=== PATIENT | male | born 1935 | race Caucasian/White ===

== ENCOUNTER → 2017-04-29 | Outpatient (CLI) | payer MEDICARE ==
[~2017-04-29] MED LIST: REGADENOSON 0.4 MG/5 ML DISP.SYRIN. IV ONE
--- NOTE | 2017-04-29 13:45 | RAD ---
APPROVED REPORT Test Type: Pharmacological Stress Nurse/Tech: aiden trevizo Test Indications: PAD, CHEST PAIN Cardiac History: HTN, SEE EHR Medications: SEE EHR Medical History: DIABETES, SEE EHR Resting ECG: NSR Resting Heart Rate: 75 bpm Resting Blood Pressure: 144/84mmHg Pretest Chest Pain: No chest pain Nurse/Tech Notes LUNG SOUNDS CLEAR, S1S2 WNL. Consent: The procedure was explained to the patient in lay terms. Informed consent was witnessed. Chuck eout was entered into [employer]. History and Stress Test performed by RT Abby (R) (N) Pharm. Details Pharmacologic stress testing was performed using 0.4mg per 5ml of regadenoson given intravenously ove r 7-10 seconds. Stress Symptoms NONE STATED. POST EXERCISE Reason for Termination: Infusion complete Max HR: 108 bpm Max Blood Pressure: 146/76mmHg Chest Pain: No. Arrhythmia: No. ST Change: No. INTERPRETATION Stress EKG Conclusion: No evidence of stress induced EKG changes. Imaging Protocol IMAGE PROTOCOL: Rest Tc-99m/stress Tc-99m 1 day Rest: Stress: Viability: Radiopharm.Tc99m AomgytmbmGr33v Sestamibi Srqr96cYk 33mCi Duration 15min. 12min. Img Date 04/29/2017 04/29/2017 Inj-Img Dxrt24mnw. 60min. Rest Admin Site:IV - Left AntecubitalAdministrator:RT Del (R)(N) Stress Admin Site: IV - Left AntecubitalAdministrator: RT Abby (R)(N) STRESS DATA End Diast. Vol.50.0mlAv. Heart Rate92.0bpm End Syst. Vol.10.0mlCO Index BSA0.0L/min Myocardial Mass97.0gEject. Jahklrly76.0% Stress Rates Pk. Fill Rate5.29EDV/secLVtime Pk. Fill 164.49msec Pk. Empty Rate5.68ESV/secLVtime Pk. Ifwac848.20msec 10/09 Pk. Fill1.46EDV/sec Stress Scores Regional WT0.00Summed WT7.00 Regional WM0.00Summed WM0.00 The rest and stress images show normal perfusion, normal contraction and thickening. LV Perf. Quant 17 Seg. SSS0.00 17 Seg. SRS0.00 17 Seg. SDS0.00 Stress Defect Extent (% LAD)0.00Rest Defect Extent (% LAD)0.00Rev. Defect Extent (% LAD)0.00 Stress Defect Extent (% LCX) 0.00Rest Defect Extent (% LCX)3.80Rev. Defect Extent (% LCX)0.00 Stress Defect Extent (% RCA)0.00Rest Defect Extent (% RCA)0.00Rev. Defect Extent (% RCA)0.00 Stress Defect Extent (% KIERAN)0.00Rest Defect Extent (% KIERAN)0.70Rev. Defect Extent (% KIERAN)0.00 Other Information Quality:Good Risk Assessment: Low Risk Conclusion 1. No evidence of EKG changes with stress testing. 2. Normal perfusion at stress/rest. 3. Low risk study. 4. EF > 60%.
== END | disposition home or self-care (01) ==
LOC: NM 08:58
PROVIDERS: ATTEND Internal Medicine Cardiovascular Disease
DX: I73.9 Peripheral vascular disease, unspecified (principal); R07.9 Chest pain, unspecified
CPT/HCPCS: 78452; 93017; 96374; 96375; 96376; A9500; J2785

== ENCOUNTER 2017-12-26 06:27 | Observation (INO) | payer MEDICARE, BC ==
[2017-12-26] MEDS ORDERED: fentaNYL PF VIAL 100 MCG/2 ML VIAL IV ×2 (07:00)
[2017-12-26] MEDS ORDERED: LIDOCAINE 1% PF 2 ML VIAL. ID (07:00)
[2017-12-26] MEDS ORDERED: HYDROmorphone 2 MG/ML VIAL IV (07:00)
[2017-12-26] MEDS ORDERED: PROCHLORPERAZINE 10 MG/2 ML VIAL. IV (07:00)
[2017-12-26] MEDS ORDERED: MORPHINE SULFATE 2 MG/ML DISP.SYRIN. IV (07:00)
[2017-12-26] MEDS ORDERED: ONDANSETRON PF 4 MG/2 ML VIAL. IV ×2 (07:00→09:00)
[2017-12-26 07:06] LABS: POC GLUCOSE 126 mg/dL (70-99)
[2017-12-26] MEDS: IV RINGERS,LACTATED 1000ML 1,000 ML IV (07:07)
[2017-12-26] MEDS ORDERED: PROPOFOL 20 ML IV (07:20)
[2017-12-26] MEDS ORDERED: DEXAMETHASONE SOD PHOS 20 MG/5 ML VIAL. (07:20)
[2017-12-26] MEDS ORDERED: ONDANSETRON PF 4 MG/2 ML VIAL. (07:20)
[2017-12-26] MEDS ORDERED: fentaNYL PF VIAL 100 MCG/2 ML VIAL (07:21)
[2017-12-26] MEDS ORDERED: ceFAZolin 2GM PREMIX 2 GM/50 ML BAG IV (08:00)
[2017-12-26] MEDS ORDERED: PHENYLEPHRINE 10 MG/ML VIAL. (08:06)
[2017-12-26] MEDS: BUPIVACAINE-EPI 0.25%-1:200000 50 ML VIAL. (08:17)
[2017-12-26] MEDS ORDERED: SEVOFLURANE 61 TO 120 MINUTES. IH (08:57)
[2017-12-26] MEDS ORDERED: 0.9 % SODIUM CHLORIDE 10 ML DISP.SYRIN. IV (09:00)
[2017-12-26] MEDS: VORAPAXAR SULFATE 2.08 MG PO (09:00)
[2017-12-26] MEDS ORDERED: MORPHINE SULFATE 4 MG/ML DISP.SYRIN. IV (09:00)
[2017-12-26 09:10] LABS: POC GLUCOSE 135 mg/dL (70-99)
[2017-12-26] MEDS: PREGABALIN 50 MG CAPSULE PO ×2 (12:53→21:00)
[2017-12-26] MEDS: CLOPIDOGREL BISULFATE 75 MG TABLET PO (12:53)
[2017-12-26] MEDS: ASPIRIN ENTERIC COATED 81 MG TABLET.DR. PO (12:53)
[2017-12-26] MEDS: hydroCHLOROthiazide 25 MG TABLET PO (12:54)
[2017-12-26] MEDS: LINAGLIPTIN 5 MG TABLET PO (12:54)
[2017-12-26] MEDS: amLODIPine BESYLATE 10 MG TABLET PO (12:54)
[2017-12-26] MEDS: ATENOLOL 50 MG TABLET. PO (12:55)
[2017-12-26] MEDS: LISINOPRIL 20 MG TABLET PO ×2 (12:55→21:02)
[2017-12-26] MEDS: IV DEXTROSE 5%-LACT RINGERS 1,000 ML IV (15:00)
[2017-12-26] MEDS: oxyCODONE/APAP 5/325 1 TAB TABLET PO (17:50)
[2017-12-26 20:41] LABS: POC GLUCOSE 227 mg/dL (70-99)
[2017-12-26] MEDS: NON FORMULARY ITEM (Mirabegron (Myrbetriq) 25 MG) PO (20:59)
[2017-12-26] MEDS: TAMSULOSIN 0.4 MG CAP.ER.24H. PO (21:00)
[2017-12-26] MEDS: ATORVASTATIN CALCIUM 10 MG TABLET. PO (21:00)
[2017-12-27] MEDS: IV DEXTROSE 5%-LACT RINGERS 1,000 ML IV (04:20)
[2017-12-27] MEDS: hydroCHLOROthiazide 25 MG TABLET PO (08:18)
[2017-12-27] MEDS: ATENOLOL 50 MG TABLET. PO (08:19)
[2017-12-27] MEDS: LISINOPRIL 20 MG TABLET PO (08:20)
[2017-12-27] MEDS: amLODIPine BESYLATE 10 MG TABLET PO (08:20)
[2017-12-27] MEDS: PREGABALIN 50 MG CAPSULE PO (08:21)
[2017-12-27] MEDS: ASPIRIN ENTERIC COATED 81 MG TABLET.DR. PO (08:21)
[2017-12-27] MEDS: CLOPIDOGREL BISULFATE 75 MG TABLET PO (08:21)
[2017-12-27] MEDS: oxyCODONE/APAP 5/325 1 TAB TABLET PO ×3 (08:22→15:59)
[2017-12-27] MEDS: LINAGLIPTIN 5 MG TABLET PO (08:28)
[2017-12-27] MEDS: VORAPAXAR SULFATE 2.08 MG PO (08:29)
[2017-12-27 08:50] LABS: POC GLUCOSE 101 mg/dL (70-99)
[2017-12-27 11:53] LABS: POC GLUCOSE 158 mg/dL (70-99)
== END 2017-12-27 17:30 | disposition home or self-care (01) ==
LOC: SURG 06:27 → 4 NORTH 08:57
PROVIDERS: Surgery
DX: K40.90 Unilateral inguinal hernia, without obstruction or gangrene, not specified as recurrent (principal); E78.5 Hyperlipidemia, unspecified; I10 Essential (primary) hypertension; Z85.46 Personal history of malignant neoplasm of prostate
CPT/HCPCS: 49505; 82962; 97161-GP; A4215; C1781; G0378; G0379; G8978-CK-GP; G8979-CH-GP; J0690; J1100; J2405; J2704; J3010

== ENCOUNTER → 2019-02-03 | Outpatient (CLI) | payer MEDICARE, BC ==
[2017-12-27 15:00] VITALS: BP 110/76
[~2019-02-03] MED LIST changes: +AMLO10TA8 PO; +ASPI-482 PO; +ATEN100T PO; +ATOR10TA60 PO; +BENA20TA4 PO; +CALC-104 PO; +CLOP75TA PO; +FLUT9.9S NS; +HYDR12.58 PO; +MIRA25TA PO; +PREG50CA PO; -REGADENOSON 0.4 MG/5 ML DISP.SYRIN. IV ONE; +SITA1TAB11 PO; +TAMS0.4C2 PO; +VITAMIN B 12 INJ. INJ; +VORA2.082 PO
--- NOTE | 2019-02-09 10:36 | RAD ---
MR#: [id number] Date of Study: 02/03/2019 Ordering Physician: JORGE L LORD, Referring Physician: JORGE L LORD, Tech: Reno Rice, ALANNAH, RDMS, RVT, RDCS, RTR APPROVED REPORT Patient Location: OUT-PATIENT Indications PAD VELOCITY AND DOPPLER WAVEFORM ANALYSIS RIGHT cm/secWaveformSeverity LEFT cm/secWaveform Severity dCFA 83.0BiphasicdCFA 74.0Biphasic Prof Fem Art. 53.0BiphasicProf Fem Art. 50.0Biphasic Fem Art Prox. 92.0BiphasicFem Art Prox. 84.0Biphasic Fem Art Mid. 90.0BiphasicFem Art Mid. 89.0Biphasic Fem Art Dist. 82.0BiphasicFem Art Dist. 73.0Biphasic Pop Art(Fossa) 63.0BiphasicPop Art(AK) 46.0Biphasic TRUCK REPAIR SUPERVISOR Prox. 69.0BiphasicPTA Prox. 105.0Biphasic TRUCK REPAIR SUPERVISOR Dist. 82.0BiphasicPTA Dist. 99.0Biphasic Per Art Mid. 49.0BiphasicPer Art Mid. 99.0Biphasic YAJAIRA Prox. 62.0BiphasicATA Prox. 25.0Biphasic DPA 29BiphasicDPA 28Monophasic Findings Grayscale images of the bilateral lower extremity arterial vessels reveals diffuse atherosclerotic pl aque. Spectral waveforms are grossly within normal limits throughout the arterial tree except of the level of the ankle. The dorsalis pedis vessels are notable for diffuse disease and diminished velocit ies. Otherwise no focal high-grade stenosis is identified above the ankle. Critical Notification Critical Value: No <Conclusion> 1. Distal small vessel disease at the level of the ankle but otherwise no significant obstructive dis ease noted. Signed by : Terrance Louis, Electronically Approved : 02/09/2019 10:35:59
== END | disposition home or self-care (01) ==
LOC: US 12:30
PROVIDERS: ATTEND Internal Medicine Cardiovascular Disease
DX: I70.203 Unspecified atherosclerosis of native arteries of extremities, bilateral legs (principal)
CPT/HCPCS: 93925

== ENCOUNTER 2019-07-19 15:11 | Inpatient (IN) | payer MEDICARE, BC ==
[~2019-07-19] VITALS: Ht 172.7 cm; Wt 76.7 kg
[2019-07-19 15:48] LABS: BASO % 0 % (0-3); EOS # 0.1 x10^3/uL (0.0-0.7); EOS % 1 % (0-3); HEMATOCRIT 37.2 % (39.0-53.0); HEMOGLOBIN 12.4 g/dL (13.0-17.5); LYMPH # 1.7 x10^3/uL (1.0-4.8); LYMPH % 23 % (24-48); MEAN CORPUSCULAR HEMOGLOBIN 29 pg (25-35); MEAN CORPUSCULAR HGB CONC 34 g/dL (31-37); MEAN CORPUSCULAR VOLUME 87 fL (79-100); MONO # 0.5 x10^3/uL (0.0-1.1); MONO % 7 % (0-9); NEUT # 5.1 x10^3/uL (1.8-7.7); NEUT % 68 % (31-73); PLATELET COUNT 224 x10^3/uL (140-400); RED BLOOD COUNT 4.25 x10^6/uL (4.30-5.70); RED CELL DISTRIBUTION WIDTH 14.4 % (11.5-14.5); WHITE BLOOD COUNT 7.4 x10^3/uL (4.0-11.0)
--- NOTE | 2019-07-19 15:48 | PHYS DOC ---
Past Medical History Past Medical History: Diabetes-Type II, Hypertension (YAHIR PATEL APRN) Attending Signature I have participated in the care of this patient and I have reviewed and agree with all pertinent clinical information above including history, exam, and recommendations. (MANASA RUBIO MD) Adult General Chief Complaint Chief Complaint: SYNCOPE HPI HPI Patient is a 84 year old male that presents to ER for single episode CVAs dining room table that happened around 2:00 PM. The patient states he also had some blurry vision on his way to the hospital via EMS. The patient family states that after this happened he was out for several minutes and then he couldn't talk for about 5 minutes after this happened. They also state his right arm was flaccid for several minutes after this happened. Denies any pain or current c omplaints in the ER. He has a history of hypertension, and diabetes and he is on Plavix for unknown reason. (YAHIR PATEL APRN) Review of Systems Review of Systems Constitutional: Denies fever or chills [] Eyes: Reports blurry vision on the way to hospital. HENT: Denies nasal congestion or sore throat [] Respiratory: Denies cough or shortness of breath [] Cardiovascular: No additional information not addressed in HPI [] GI: Denies abdominal pain, nausea, vomiting, bloody stools or diarrhea [] : Denies dysuria or hematuria [] Musculoskeletal: Denies back pain or joint pain [] Integument: Denies rash or skin lesions [] Neurologic: Denies headache, Family reports R sided unilateral weakness and aphasia for 5 minutes. Endocrine: Denies polyuria or polydipsia [] Complete systems were reviewed and found to be within normal limits, except as documented in this note. (YAHIR PATEL APRN) Current Medications Current Medications Current Medications Medications (Trade) Dose Ordered Sig/Sara Start Time Stop Time Status Last Admin Dose Admin Info (CONTRAST GIVEN -- Rx MONITORING) 1 each PRN DAILY PRN 07/19/19 16:15 07/21/19 16:14 Iohexol (Omnipaque 300 Mg/ml) 60 ml 1X ONCE 07/19/19 16:30 07/19/19 16:31 DC 07/19/19 16:19 60 ML (MANASA RUBIO MD) Allergies Allergies Allergies Coded Allergies Type Severity Reaction Last Updated Verified No Known Drug Allergies 12/26/17 No (MANASA RUBIO MD) Physical Exam Physical Exam Constitutional: Well developed, well nourished, no acute distress, non-toxic appearance. [] HENT: Normocephalic, atraumatic, bilateral external ears normal, oropharynx moist, no oral exudates, nose normal. [] Eyes: PERRLA, EOMI, conjunctiva normal, no discharge. [] Neck: Normal range of motion, no tenderness, supple, no stridor. [] Cardiovascular:Heart rate regular rhythm, no murmur [] Lungs & Thorax: Bilateral breath sounds clear to auscultation [] Abdomen: Bowel sounds normal, soft, no tenderness, no masses, no pulsatile masses. [] Skin: Warm, dry, no erythema, no rash. [] Back: No tenderness, no CVA tenderness. [] Extremities: No tenderness, no cyanosis, no clubbing, ROM intact, no edema. [] Neurologic: Alert and oriented X 3, normal motor function, normal sensory function, no focal deficits noted. [] Psychologic: Affect normal, judgement normal, mood normal. [] (YAHIR PATEL APRN) Current Patient Data Vital Signs Vital Signs Date Time Temp Pulse Resp B/P (MAP) Pulse Ox O2 Delivery O2 Flow Rate FiO2 07/19/19 16:55 92 16 178/77 (110) 97 Room Air 07/19/19 15:12 97.5 97.5 (MANASA RUBIO MD) Lab Values Laboratory Tests Test 07/19/19 15:30 White Blood Count 7.4 x10^3/uL (4.0-11.0) Red Blood Count 4.25 x10^6/uL (4.30-5.70) L Hemoglobin 12.4 g/dL (13.0-17.5) L Hematocrit 37.2 % (39.0-53.0) L Mean Corpuscular Volume 87 fL (79-100) Mean Corpuscular Hemoglobin 29 pg (25-35) Mean Corpuscular Hemoglobin Concent 34 g/dL (31-37) Red Cell Distribution Width 14.4 % (11.5-14.5) Platelet Count 224 x10^3/uL (140-400) Neutrophils (%) (Auto) 68 % (31-73) Lymphocytes (%) (Auto) 23 % (24-48) L Monocytes (%) (Auto) 7 % (0-9) Eosinophils (%) (Auto) 1 % (0-3) Basophils (%) (Auto) 0 % (0-3) Neutrophils # (Auto) 5.1 x10^3/uL (1.8-7.7) Lymphocytes # (Auto) 1.7 x10^3/uL (1.0-4.8) Monocytes # (Auto) 0.5 x10^3/uL (0.0-1.1) Eosinophils # (Auto) 0.1 x10^3/uL (0.0-0.7) Basophils # (Auto) 0.0 x10^3/uL (0.0-0.2) Prothrombin Time 13.7 SEC (11.7-14.0) Prothrombin Time INR 1.1 (0.8-1.1) Activated Partial Thromboplast Time 26 SEC (24-38) D-Dimer (Kandi) 0.62 ug/mlFEU (0.00-0.50) H Sodium Level 140 mmol/L (136-145) Potassium Level 4.2 mmol/L (3.5-5.1) Chloride Level 103 mmol/L (98-107) Carbon Dioxide Level 26 mmol/L (21-32) Anion Gap 11 (6-14) Blood Urea Nitrogen 27 mg/dL (8-26) H Creatinine 1.6 mg/dL (0.7-1.3) H Estimated GFR (Cockcroft-Gault) 41.3 BUN/Creatinine Ratio 17 (6-20) Glucose Level 152 mg/dL (70-99) H Calcium Level 9.6 mg/dL (8.5-10.1) Total Bilirubin 0.4 mg/dL (0.2-1.0) Aspartate Amino Transferase (AST) 18 U/L (15-37) Alanine Aminotransferase (ALT) 15 U/L (16-63) L Alkaline Phosphatase 44 U/L (46-116) L Creatine Kinase 61 U/L (39-308) Creatine Kinase MB (Mass) 1.0 ng/mL (0.0-3.6) Creatine Kinase MB Relative Index % (0-4) Troponin I Quantitative < 0.017 ng/mL (0.000-0.055) Total Protein 7.5 g/dL (6.4-8.2) Albumin 3.5 g/dL (3.4-5.0) Albumin/Globulin Ratio 0.9 (1.0-1.7) L Laboratory Tests 07/19/19 15:30 Laboratory Tests 07/19/19 15:30 (MANASA RUBIO MD) Lab Values Laboratory Tests Test 07/19/19 15:30 White Blood Count 7.4 x10^3/uL (4.0-11.0) Red Blood Count 4.25 x10^6/uL (4.30-5.70) L Hemoglobin 12.4 g/dL (13.0-17.5) L Hematocrit 37.2 % (39.0-53.0) L Mean Corpuscular Volume 87 fL (79-100) Mean Corpuscular Hemoglobin 29 pg (25-35) Mean Corpuscular Hemoglobin Concent 34 g/dL (31-37) Red Cell Distribution Width 14.4 % (11.5-14.5) Platelet Count 224 x10^3/uL (140-400) Neutrophils (%) (Auto) 68 % (31-73) Lymphocytes (%) (Auto) 23 % (24-48) L Monocytes (%) (Auto) 7 % (0-9) Eosinophils (%) (Auto) 1 % (0-3) Basophils (%) (Auto) 0 % (0-3) Neutrophils # (Auto) 5.1 x10^3/uL (1.8-7.7) Lymphocytes # (Auto) 1.7 x10^3/uL (1.0-4.8) Monocytes # (Auto) 0.5 x10^3/uL (0.0-1.1) Eosinophils # (Auto) 0.1 x10^3/uL (0.0-0.7) Basophils # (Auto) 0.0 x10^3/uL (0.0-0.2) Prothrombin Time 13.7 SEC (11.7-14.0) Prothrombin Time INR 1.1 (0.8-1.1) Activated Partial Thromboplast Time 26 SEC (24-38) D-Dimer (Kandi) 0.62 ug/mlFEU (0.00-0.50) H Sodium Level 140 mmol/L (136-145) Potassium Level 4.2 mmol/L (3.5-5.1) Chloride Level 103 mmol/L (98-107) Carbon Dioxide Level 26 mmol/L (21-32) Anion Gap 11 (6-14) Blood Urea Nitrogen 27 mg/dL (8-26) H Creatinine 1.6 mg/dL (0.7-1.3) H Estimated GFR (Cockcroft-Gault) 41.3 BUN/Creatinine Ratio 17 (6-20) Glucose Level 152 mg/dL (70-99) H Calcium Level 9.6 mg/dL (8.5-10.1) Total Bilirubin 0.4 mg/dL (0.2-1.0) Aspartate Amino Transferase (AST) 18 U/L (15-37) Alanine Aminotransferase (ALT) 15 U/L (16-63) L Alkaline Phosphatase 44 U/L (46-116) L Creatine Kinase 61 U/L (39-308) Creatine Kinase MB (Mass) 1.0 ng/mL (0.0-3.6) Creatine Kinase MB Relative Index % (0-4) Troponin I Quantitative < 0.017 ng/mL (0.000-0.055) Total Protein 7.5 g/dL (6.4-8.2) Albumin 3.5 g/dL (3.4-5.0) Albumin/Globulin Ratio 0.9 (1.0-1.7) L Laboratory Tests 07/19/19 15:30 Laboratory Tests 07/19/19 15:30 (YAHIR PATEL APRN) EKG EKG EKG interpreted by Dr. Rubio Sinus with rate of 83, No STEMI.[] (YAHIR PATEL APRN) Radiology/Procedures Radiology/Procedures [facility] [address] [place] [address] IMAGING REPORT Signed PATIENT: OSWALDO HIGGINBOTHAMACCOUNT: [id number] : 1935 LOCATION: ER AGE: 84 SEX: M EXAM STATUS: REG ER ORD. PHYSICIAN: YAHIR PATEL APRN REASON: syncope, unable to talk for 5 minutes afterwards, blurry vision PROCEDURE: CT ANGIOGRAPHY HEAD AND NECK Exam: CT head. CTA head and neck INDICATION: Blurry vision, syncope TECHNIQUE: Sequential axial images through the head were obtained without the administration of IV contrast. Sequential axial images through the head and neck were obtained following the administration of 100 mL of Isovue 370 IV contrast. 3-D reformatted images were reconstructed from the axial data and reviewed. Comparisons: None FINDINGS: Head without: No focal parenchymal lesion or hemorrhage is identified. There is no midline shift or sulcal effacement. Patchy hypodensity in the periventricular white matter. Ramires-white distinction is preserved. The ventricular system is within normal limits without compression hydrocephalus. The basal cisterns are well maintained. The visualized portions of the paranasal sinuses and mastoid air cells are well-pneumatized. No acute fractures. CTA NECK: Visualized portions of the thoracic aorta are unremarkable. There is a two-vessel aortic arch configuration with common origin of the brachiocephalic and left common carotid arteries. Right common carotid artery is patent without evidence of stenosis, occlusion or aneurysm. There is circumferential calcified plaque at the origin of the right internal carotid artery without significant stenosis. Left common carotid artery is patent without evidence of stenosis, occlusion or aneurysm. Mild calcified plaque at the origin of the left internal carotid artery without significant stenosis. Right vertebral artery is patent to basilar confluence. No evidence of stenosis, occlusion or aneurysm. Left vertebral artery is patent to the basilar confluence. No evidence of stenosis, occlusion or aneurysm. There is heterogenous appearance of the thyroid gland. CTA HEAD: Circumferential calcified plaque at the cavernous segment of the right internal carotid artery without significant stenosis. Right MCA is patent. Right MARIETTA is patent. Circumferential calcified plaque at the cavernous segment of the left internal carotid artery without significant stenosis. Left MCA is patent. Left MARIETTA is patent. Basilar artery is patent without evidence of stenosis, occlusion or aneurysm. Major branch vessels arising off the basilar artery are patent proximally. breaker table worker are patent bilaterally. IMPRESSION: 1. Patchy hypodensity in the periventricular white matter representing small vessel ischemic change, technically age indeterminate without prior imaging. 2. Calcified plaque at the origins of the internal carotid arteries bilaterally without significant stenosis. 3. Calcified plaque at the cavernous segments of the internal carotid arteries bilaterally without significant stenosis. 4. There remains concerns for acute ischemia MRI would better evaluate. Exposure: One or more of the following in the visualized dose reduction techniques were utilized for this examination: 1. Automated exposure control 2. Adjustment of the MA and/or KV according to patient size Use of iterative of reconstructive technique Electronically signed by: Anatoliy Dover MD (07/19/2019 4:35 PM) [facility] [][facility] [address] [place] [address] IMAGING REPORT Signed PATIENT: OSWALDO HIGGINBOTHAMACCOUNT: [id number] : 1935 LOCATION: ER AGE: 84 SEX: M EXAM STATUS: REG ER ORD. PHYSICIAN: YAHIR PATEL APRN REASON: syncope PROCEDURE: CHEST PA & LATERAL CHEST PA LATERAL History: Syncope Comparison: None. Findings: 2 views of the chest are submitted. There is motion for lateral view. Cardiac silhouette is within normal limits. There is somewhat tortuous thoracic aorta. Opacity on the lateral view is likely in part from patient's arm soft tissues. No convincing infiltrate is visualized on the AP view. No pneumothorax is identified. Impression: 1. Lateral view is limited, no convincing infiltrate on the AP view. Electronically signed by: Artem Parsons MD (07/19/2019 4:34 PM) [facility] DICTATED and SIGNED BY: ARTEM PARSONS MD DATE: 07/19/19 163 (YAHIR PATEL APRN) Course & Med Decision Making Course & Med Decision Making Pertinent Labs and Imaging studies reviewed. (See chart for details) Will work up for syncope with labs, chest x-ray, urine, CT head wo and CTA (TIA workup). Labs, and Imaging is unremarkable at this time. Concerned that patient had a TIA. Will page Dr. Weller for admission ([id number]). Dr. Ruiz answered page, covering for Dr. Weller and accepts admission 1730. Will consult Dr. Maddox (Neuro) and he requests Carotid Dopplers Bilaterally for in the morning. Discussed plan with patient and family multiple times. Patient related to me that he wants to be a FULL code while in the hospital. (YAHIR PATEL APRN) Dragon Disclaimer Dragon Disclaimer This electronic medical record was generated, in whole or in part, using a voice recognition dictation system. (YAHIR PATEL APRN) Departure Departure Impression: Primary Impression: TIA (transient ischemic attack) Additional Impression: Syncope Disposition: 09 ADMITTED INPATIENT Admitting Physician: Yahir Ruiz (YAHIR PATEL APRN) Condition: GUARDED Referrals: ANA LUISA WELLER MD (PCP) NIHSS Stroke Scale NIH Stroke Scale: NIH Stroke Scale Response (Comments) Value Level of Consciousness: 0 Alert/Responsive 0 LOC Questions: 0 Answers both correctly 0 LOC Commands: 0 Performs both tasks 0 Best Gaze: 0 Normal 0 Visual: 0 No visual loss 0 Facial Palsy: 0 Normal, symmetrical 0 Motor - Left Arm 0 No drift 0 Motor - Right Arm 0 No drift 0 Motor - Left Leg 0 No drift 0 Motor: Right Leg 0 No drift 0 Limb Ataxia: 0 Absent 0 Sensory: 0 No loss 0 Best Language: 0 Normal 0 Dysathria: 0 Normal 0 Extinction and Inattention: 0 Normal 0 Total 0 Problem Qualifiers Additional Impression: Syncope Syncope type: unspecified Qualified Codes: R55 - Syncope and collapse YAHIR PATEL APRN Jul 19, 2019 15:48 MANASA RUBIO MD Jul 20, 2019 06:51
--- NOTE | 2019-07-19 15:52 | EKG ---
[facility] [address] [place] [address] Test Date: 2019-07-19 Test Time: 15:17:38 Pat Name: OSWALDO HIGGINBOTHAM Department: Room: Gender: M Filler Picker: MICHELLE : [phone] Requested By: PJ PATEL Order Number: [id number] Reading MD: Measurements Intervals [place] Rate: 83 P: 34 GA: 172 QRS: 3 QRSD: 76 T: 19 QT: 340 QTc: 404 Interpretive Statements SINUS RHYTHM NORMAL ECG No previous ECG available for comparison
[2019-07-19 15:58] LABS: CALCIUM 9.6 mg/dL (8.5-10.1); CREATININE 1.6 mg/dL (0.7-1.3); GFR 41.3; POTASSIUM 4.2 mmol/L (3.5-5.1)
[2019-07-19 16:03] LABS: ALBUMIN 3.5 g/dL (3.4-5.0); ALBUMIN/GLOBULIN RATIO 0.9 (1.0-1.7); PROTHROMBIN TIME PATIENT 13.7 SEC (11.7-14.0); TOTAL BILIRUBIN 0.4 mg/dL (0.2-1.0); TOTAL PROTEIN 7.5 g/dL (6.4-8.2)
[2019-07-19 16:11] LABS: CREATINE KINASE 61 U/L (39-308)
[2019-07-19] MEDS ORDERED: CONTRAST GIVEN. MC PRN (16:15)
[2019-07-19] MEDS ORDERED: IOHEXOL 300 MG/ML 100ML VIAL. IV ONE (16:30)
--- NOTE | 2019-07-19 16:36 | RAD ---
CHEST PA LATERAL History: Syncope Comparison: None. Findings: 2 views of the chest are submitted. There is motion for lateral view. Cardiac silhouette is within normal limits. There is somewhat tortuous thoracic aorta. Opacity on the lateral view is likely in part from patient's arm soft tissues. No convincing infiltrate is visualized on the AP view. No pneumothorax is identified. Impression: 1. Lateral view is limited, no convincing infiltrate on the AP view. Electronically signed by: Juan C Devlin MD (07/19/2019 4:34 PM) [facility]
--- NOTE | 2019-07-19 16:38 | RAD ---
Exam: CT head. CTA head and neck INDICATION: Blurry vision, syncope TECHNIQUE: Sequential axial images through the head were obtained without the administration of IV contrast. Sequential axial images through the head and neck were obtained following the administration of 100 mL of Isovue 370 IV contrast. 3-D reformatted images were reconstructed from the axial data and reviewed. Comparisons: None FINDINGS: Head without: No focal parenchymal lesion or hemorrhage is identified. There is no midline shift or sulcal effacement. Patchy hypodensity in the periventricular white matter. Ramires-white distinction is preserved. The ventricular system is within normal limits without compression hydrocephalus. The basal cisterns are well maintained. The visualized portions of the paranasal sinuses and mastoid air cells are well-pneumatized. No acute fractures. CTA NECK: Visualized portions of the thoracic aorta are unremarkable. There is a two-vessel aortic arch configuration with common origin of the brachiocephalic and left common carotid arteries. Right common carotid artery is patent without evidence of stenosis, occlusion or aneurysm. There is circumferential calcified plaque at the origin of the right internal carotid artery without significant stenosis. Left common carotid artery is patent without evidence of stenosis, occlusion or aneurysm. Mild calcified plaque at the origin of the left internal carotid artery without significant stenosis. Right vertebral artery is patent to basilar confluence. No evidence of stenosis, occlusion or aneurysm. Left vertebral artery is patent to the basilar confluence. No evidence of stenosis, occlusion or aneurysm. There is heterogenous appearance of the thyroid gland. CTA HEAD: Circumferential calcified plaque at the cavernous segment of the right internal carotid artery without significant stenosis. Right MCA is patent. Right MARIETTA is patent. Circumferential calcified plaque at the cavernous segment of the left internal carotid artery without significant stenosis. Left MCA is patent. Left MARIETTA is patent. Basilar artery is patent without evidence of stenosis, occlusion or aneurysm. Major branch vessels arising off the basilar artery are patent proximally. launch steward are patent bilaterally. IMPRESSION: 1. Patchy hypodensity in the periventricular white matter representing small vessel ischemic change, technically age indeterminate without prior imaging. 2. Calcified plaque at the origins of the internal carotid arteries bilaterally without significant stenosis. 3. Calcified plaque at the cavernous segments of the internal carotid arteries bilaterally without significant stenosis. 4. There remains concerns for acute ischemia MRI would better evaluate. Exposure: One or more of the following in the visualized dose reduction techniques were utilized for this examination: 1. Automated exposure control 2. Adjustment of the MA and/or KV according to patient size Use of iterative of reconstructive technique Electronically signed by: Anatoliy Dover MD (07/19/2019 4:35 PM) [facility]
[2019-07-19] MEDS ORDERED: ONDANSETRON PF 4 MG/2 ML VIAL. IV PRN (17:30)
[2019-07-19] MEDS ORDERED: ASPIRIN CHEWABLE 81 MG TABLET. PO ONE (17:30)
[2019-07-19 19:02] LABS: CREATINE KINASE 55 U/L (39-308)
[2019-07-19 19:22] VITALS: BP 190/90
[2019-07-19] MEDS ORDERED: SITA1TAB11 PO (19:46)
--- NOTE | 2019-07-19 20:00 | NUR ---
Admit from ED via gurney from ED to room 246. A/O x 4 on admit. Ambulates from gurney to bed with standby assist. Family at bedside. Orientated to unit and call light. Reviewed POC to include serial troponins, carotid doppler and q4hrs VS. Patient and family verbalized understanding. Resting in bed. Call light at hand.
[2019-07-19] MEDS ORDERED: ENAL5TAB PO (20:21)
[2019-07-19] MEDS ORDERED: LORA10TA3 PO (20:28)
[2019-07-19 20:32] VITALS: BP 153/74
[2019-07-19] MEDS: ENOXAPARIN 40 MG/0.4 ML SYRINGE. SQ SCH (21:34)
[2019-07-19] MEDS: TAMSULOSIN 0.4 MG CAP.ER.24H. PO SCH (21:34)
[2019-07-19] MEDS: PREGABALIN 50 MG CAPSULE PO SCH (21:34)
[2019-07-19 21:42] LABS: CREATINE KINASE 53 U/L (39-308)
[2019-07-19 21:48] LABS: BILIRUBIN,URINE NEGATIVE (NEG); CLARITY,URINE CLEAR; COLOR,URINE YELLOW; NITRITE,URINE NEGATIVE (NEG); PH,URINE 5.5; PROTEIN,URINE NEGATIVE (NEG-TRACE); UROBILINOGEN,URINE 0.2 mg/dL (0.2 mg/dL)
[2019-07-19 21:54] LABS: BACTERIA,URINE 0 /HPF (0-FEW); RBC,URINE RARE /HPF (0-2); SQUAMOUS EPITHELIAL CELL,UR OCC /LPF; WBC,URINE 0 /HPF (0-4)
[2019-07-19 22:26] VITALS: BP 144/77
[2019-07-20 03:30] VITALS: BP 144/79
[2019-07-20 04:28] LABS: BASO % 0 % (0-3); EOS # 0.1 x10^3/uL (0.0-0.7); EOS % 2 % (0-3); HEMATOCRIT 31.6 % (39.0-53.0); HEMOGLOBIN 10.9 g/dL (13.0-17.5); LYMPH # 1.1 x10^3/uL (1.0-4.8); LYMPH % 23 % (24-48); MEAN CORPUSCULAR HEMOGLOBIN 30 pg (25-35); MEAN CORPUSCULAR HGB CONC 34 g/dL (31-37); MEAN CORPUSCULAR VOLUME 86 fL (79-100); MONO # 0.5 x10^3/uL (0.0-1.1); MONO % 9 % (0-9); NEUT # 3.2 x10^3/uL (1.8-7.7); NEUT % 65 % (31-73); PLATELET COUNT 188 x10^3/uL (140-400); RED BLOOD COUNT 3.66 x10^6/uL (4.30-5.70); RED CELL DISTRIBUTION WIDTH 14.2 % (11.5-14.5); WHITE BLOOD COUNT 4.9 x10^3/uL (4.0-11.0)
[2019-07-20 04:47] LABS: CREATININE 1.3 mg/dL (0.7-1.3); GFR 52.5; POTASSIUM 3.8 mmol/L (3.5-5.1)
[2019-07-20 07:00] VITALS: BP 135/74
--- NOTE | 2019-07-20 08:05 | RAD ---
Carotid doppler ultrasound History: Syncope, aphasia, unilateral arm weakness Multiple grayscale, color, and duplex spectral analysis waveform sonographic images were acquired of the carotid, subclavian, and vertebral arteries. Comparison: None Findings: RIGHT: PSV cm/sec EDV cm/sec Common carotid artery 100 15 Maximal internal carotid artery 93 28 External carotid artery 79 Vertebral artery 49 ICA/CCA ratio 0.93 LEFT: PSV cm/sec EDV cm/sec Common carotid artery 97 21 Maximum internal carotid artery 94 31 External carotid artery 60 Vertebral artery 59 ICA/CCA ratio 0.97 Velocities used to determine stenosis are known to correlate with NASCET angiographic criteria. There is antegrade flow in the bilateral vertebral arteries. There is mild hyperechoic calcified plaque of the bilateral carotid bifurcations and proximal internal carotid arteries, no significant stenosis demonstrated on grayscale or color images. Impression: 1. There is no evidence of a hemodynamically significant stenosis. There is calcified plaque of the carotid bifurcations and proximal internal carotid arteries bilaterally. Electronically signed by: Juan C Devlin MD (07/20/2019 8:02 AM) [id number]
[2019-07-20] MEDS: CETIRIZINE HCL 10 MG TABLET. PO SCH ×2 (08:08→10:45)
[2019-07-20] MEDS: PREGABALIN 50 MG CAPSULE PO SCH ×3 (08:08→20:49)
[2019-07-20] MEDS: hydroCHLOROthiazide 25 MG TABLET PO SCH ×2 (08:09→10:45)
[2019-07-20] MEDS: CLOPIDOGREL BISULFATE 75 MG TABLET PO SCH ×2 (08:09→10:44)
[2019-07-20] MEDS: LISINOPRIL 10 MG TABLET PO SCH ×2 (08:10→10:45)
[2019-07-20] MEDS: CALCIUM CARB/VIT D3 500/200 TABLET. PO SCH ×3 (08:10→17:45)
[2019-07-20] MEDS: ATENOLOL 50 MG TABLET. PO SCH ×2 (08:11→10:46)
[2019-07-20] MEDS ORDERED: HYDR12.575 PO (08:44)
[2019-07-20] MEDS ORDERED: ATOR10TA60 PO (08:44)
--- NOTE | 2019-07-20 08:48 | PDOC ---
PROGRESS NOTES Subjective Subjective Patient without complaint, does not remember events of yesterday that lead to his admission. Objective Objective Vital Signs Date Time Temp Pulse Resp B/P (MAP) Pulse Ox O2 Delivery O2 Flow Rate FiO2 07/20/19 07:00 97.4 75 18 135/74 (94) 97 Room Air 97.4 Intake and Output 07/20/19 06:59 Intake Total 360 ml Output Total 550 ml Balance -190 ml Intake Oral 360 ml Output Urine Total 550 ml Physical Exam Abdomen: Normal bowel sounds, Soft, No tenderness Heart: Regular rate Extremities: No edema General: Alert, Oriented X3, No acute distress Lungs: Clear to auscultation Assessment Assessment Problems Medical Problems: (1) Syncope Status: Acute (2) TIA (transient ischemic attack) Status: Acute Plan Plan of Care 1. Possible TIA - CT head and CT angiogram unremarkable. Patient had brief episode of altered consciousness yesterday that resolved completely. Patient at baseline mental status now. Home today after completing testing per Dr Maddox's recommendations. Continue ASA and Plavix. 2. HTN - continue home medication. 3. DM2 - controlled with home medications, continue. 4. CKD III - stable. 5. hyperlipidemia - well controlled with low dose Atorvastatin, continue. 6. chronic anemia - mild, stable. Comment Review of Relevant I have reviewed the following items danny (where applicable) has been applied. Labs Laboratory Tests Test 07/19/19 15:30 07/19/19 18:15 07/19/19 21:12 07/19/19 21:30 White Blood Count 7.4 x10^3/uL (4.0-11.0) Red Blood Count 4.25 x10^6/uL (4.30-5.70) Hemoglobin 12.4 g/dL (13.0-17.5) Hematocrit 37.2 % (39.0-53.0) Mean Corpuscular Volume 87 fL (79-100) Mean Corpuscular Hemoglobin 29 pg (25-35) Mean Corpuscular Hemoglobin Concent 34 g/dL (31-37) Red Cell Distribution Width 14.4 % (11.5-14.5) Platelet Count 224 x10^3/uL (140-400) Neutrophils (%) (Auto) 68 % (31-73) Lymphocytes (%) (Auto) 23 % (24-48) Monocytes (%) (Auto) 7 % (0-9) Eosinophils (%) (Auto) 1 % (0-3) Basophils (%) (Auto) 0 % (0-3) Neutrophils # (Auto) 5.1 x10^3/uL (1.8-7.7) Lymphocytes # (Auto) 1.7 x10^3/uL (1.0-4.8) Monocytes # (Auto) 0.5 x10^3/uL (0.0-1.1) Eosinophils # (Auto) 0.1 x10^3/uL (0.0-0.7) Basophils # (Auto) 0.0 x10^3/uL (0.0-0.2) Prothrombin Time 13.7 SEC (11.7-14.0) Prothromb Time International Ratio 1.1 (0.8-1.1) Activated Partial Thromboplast Time 26 SEC (24-38) D-Dimer (Kandi) 0.62 ug/mlFEU (0.00-0.50) Sodium Level 140 mmol/L (136-145) Potassium Level 4.2 mmol/L (3.5-5.1) Chloride Level 103 mmol/L (98-107) Carbon Dioxide Level 26 mmol/L (21-32) Anion Gap 11 (6-14) Blood Urea Nitrogen 27 mg/dL (8-26) Creatinine 1.6 mg/dL (0.7-1.3) Estimated GFR (Cockcroft-Gault) 41.3 BUN/Creatinine Ratio 17 (6-20) Glucose Level 152 mg/dL (70-99) Calcium Level 9.6 mg/dL (8.5-10.1) Total Bilirubin 0.4 mg/dL (0.2-1.0) Aspartate Amino Transf (AST/SGOT) 18 U/L (15-37) Alanine Aminotransferase (ALT/SGPT) 15 U/L (16-63) Alkaline Phosphatase 44 U/L (46-116) Creatine Kinase 61 U/L (39-308) 55 U/L (39-308) 53 U/L (39-308) Creatine Kinase MB (Mass) 1.0 ng/mL (0.0-3.6) 0.9 ng/mL (0.0-3.6) 0.8 ng/mL (0.0-3.6) Creatine Kinase MB Relative Index % (0-4) % (0-4) % (0-4) Troponin I Quantitative < 0.017 ng/mL (0.000-0.055) < 0.017 ng/mL (0.000-0.055) < 0.017 ng/mL (0.000-0.055) Total Protein 7.5 g/dL (6.4-8.2) Albumin 3.5 g/dL (3.4-5.0) Albumin/Globulin Ratio 0.9 (1.0-1.7) Urine Collection Type Unknown Urine Color Yellow Urine Clarity Clear Urine pH 5.5 Urine Specific [place] >=1.030 Urine Protein Negative mg/dL (NEG-TRACE) Urine Glucose (UA) Negative mg/dL (NEG) Urine Ketones (Stick) Negative mg/dL (NEG) Urine Blood Negative (NEG) Urine Nitrite Negative (NEG) Urine Bilirubin Negative (NEG) Urine Urobilinogen Dipstick 0.2 mg/dL (0.2 mg/dL) Urine Leukocyte Esterase Negative (NEG) Urine RBC Rare /HPF (0-2) Urine WBC 0 /HPF (0-4) Urine Squamous Epithelial Cells Occ /LPF Urine Bacteria 0 /HPF (0-FEW) Urine Mucus Slight /LPF Test 07/19/19 21:33 07/20/19 04:00 Glucose (Fingerstick) 199 mg/dL (70-99) White Blood Count 4.9 x10^3/uL (4.0-11.0) Red Blood Count 3.66 x10^6/uL (4.30-5.70) Hemoglobin 10.9 g/dL (13.0-17.5) Hematocrit 31.6 % (39.0-53.0) Mean Corpuscular Volume 86 fL (79-100) Mean Corpuscular Hemoglobin 30 pg (25-35) Mean Corpuscular Hemoglobin Concent 34 g/dL (31-37) Red Cell Distribution Width 14.2 % (11.5-14.5) Platelet Count 188 x10^3/uL (140-400) Neutrophils (%) (Auto) 65 % (31-73) Lymphocytes (%) (Auto) 23 % (24-48) Monocytes (%) (Auto) 9 % (0-9) Eosinophils (%) (Auto) 2 % (0-3) Basophils (%) (Auto) 0 % (0-3) Neutrophils # (Auto) 3.2 x10^3/uL (1.8-7.7) Lymphocytes # (Auto) 1.1 x10^3/uL (1.0-4.8) Monocytes # (Auto) 0.5 x10^3/uL (0.0-1.1) Eosinophils # (Auto) 0.1 x10^3/uL (0.0-0.7) Basophils # (Auto) 0.0 x10^3/uL (0.0-0.2) Sodium Level 142 mmol/L (136-145) Potassium Level 3.8 mmol/L (3.5-5.1) Chloride Level 105 mmol/L (98-107) Carbon Dioxide Level 27 mmol/L (21-32) Anion Gap 10 (6-14) Blood Urea Nitrogen 30 mg/dL (8-26) Creatinine 1.3 mg/dL (0.7-1.3) Estimated GFR (Cockcroft-Gault) 52.5 Glucose Level 107 mg/dL (70-99) Calcium Level 9.0 mg/dL (8.5-10.1) Laboratory Tests Test 07/19/19 15:30 07/19/19 18:15 07/19/19 21:12 07/19/19 21:30 White Blood Count 7.4 x10^3/uL (4.0-11.0) Red Blood Count 4.25 x10^6/uL (4.30-5.70) Hemoglobin 12.4 g/dL (13.0-17.5) Hematocrit 37.2 % (39.0-53.0) Mean Corpuscular Volume 87 fL (79-100) Mean Corpuscular Hemoglobin 29 pg (25-35) Mean Corpuscular Hemoglobin Concent 34 g/dL (31-37) Red Cell Distribution Width 14.4 % (11.5-14.5) Platelet Count 224 x10^3/uL (140-400) Neutrophils (%) (Auto) 68 % (31-73) Lymphocytes (%) (Auto) 23 % (24-48) Monocytes (%) (Auto) 7 % (0-9) Eosinophils (%) (Auto) 1 % (0-3) Basophils (%) (Auto) 0 % (0-3) Neutrophils # (Auto) 5.1 x10^3/uL (1.8-7.7) Lymphocytes # (Auto) 1.7 x10^3/uL (1.0-4.8) Monocytes # (Auto) 0.5 x10^3/uL (0.0-1.1) Eosinophils # (Auto) 0.1 x10^3/uL (0.0-0.7) Basophils # (Auto) 0.0 x10^3/uL (0.0-0.2) Prothrombin Time 13.7 SEC (11.7-14.0) Prothromb Time International Ratio 1.1 (0.8-1.1) Activated Partial Thromboplast Time 26 SEC (24-38) D-Dimer (Kandi) 0.62 ug/mlFEU (0.00-0.50) Sodium Level 140 mmol/L (136-145) Potassium Level 4.2 mmol/L (3.5-5.1) Chloride Level 103 mmol/L (98-107) Carbon Dioxide Level 26 mmol/L (21-32) Anion Gap 11 (6-14) Blood Urea Nitrogen 27 mg/dL (8-26) Creatinine 1.6 mg/dL (0.7-1.3) Estimated GFR (Cockcroft-Gault) 41.3 BUN/Creatinine Ratio 17 (6-20) Glucose Level 152 mg/dL (70-99) Calcium Level 9.6 mg/dL (8.5-10.1) Total Bilirubin 0.4 mg/dL (0.2-1.0) Aspartate Amino Transf (AST/SGOT) 18 U/L (15-37) Alanine Aminotransferase (ALT/SGPT) 15 U/L (16-63) Alkaline Phosphatase 44 U/L (46-116) Creatine Kinase 61 U/L (39-308) 55 U/L (39-308) 53 U/L (39-308) Creatine Kinase MB (Mass) 1.0 ng/mL (0.0-3.6) 0.9 ng/mL (0.0-3.6) 0.8 ng/mL (0.0-3.6) Creatine Kinase MB Relative Index % (0-4) % (0-4) % (0-4) Troponin I Quantitative < 0.017 ng/mL (0.000-0.055) < 0.017 ng/mL (0.000-0.055) < 0.017 ng/mL (0.000-0.055) Total Protein 7.5 g/dL (6.4-8.2) Albumin 3.5 g/dL (3.4-5.0) Albumin/Globulin Ratio 0.9 (1.0-1.7) Urine Collection Type Unknown Urine Color Yellow Urine Clarity Clear Urine pH 5.5 Urine Specific [place] >=1.030 Urine Protein Negative mg/dL (NEG-TRACE) Urine Glucose (UA) Negative mg/dL (NEG) Urine Ketones (Stick) Negative mg/dL (NEG) Urine Blood Negative (NEG) Urine Nitrite Negative (NEG) Urine Bilirubin Negative (NEG) Urine Urobilinogen Dipstick 0.2 mg/dL (0.2 mg/dL) Urine Leukocyte Esterase Negative (NEG) Urine RBC Rare /HPF (0-2) Urine WBC 0 /HPF (0-4) Urine Squamous Epithelial Cells Occ /LPF Urine Bacteria 0 /HPF (0-FEW) Urine Mucus Slight /LPF Test 07/19/19 21:33 07/20/19 04:00 Glucose (Fingerstick) 199 mg/dL (70-99) White Blood Count 4.9 x10^3/uL (4.0-11.0) Red Blood Count 3.66 x10^6/uL (4.30-5.70) Hemoglobin 10.9 g/dL (13.0-17.5) Hematocrit 31.6 % (39.0-53.0) Mean Corpuscular Volume 86 fL (79-100) Mean Corpuscular Hemoglobin 30 pg (25-35) Mean Corpuscular Hemoglobin Concent 34 g/dL (31-37) Red Cell Distribution Width 14.2 % (11.5-14.5) Platelet Count 188 x10^3/uL (140-400) Neutrophils (%) (Auto) 65 % (31-73) Lymphocytes (%) (Auto) 23 % (24-48) Monocytes (%) (Auto) 9 % (0-9) Eosinophils (%) (Auto) 2 % (0-3) Basophils (%) (Auto) 0 % (0-3) Neutrophils # (Auto) 3.2 x10^3/uL (1.8-7.7) Lymphocytes # (Auto) 1.1 x10^3/uL (1.0-4.8) Monocytes # (Auto) 0.5 x10^3/uL (0.0-1.1) Eosinophils # (Auto) 0.1 x10^3/uL (0.0-0.7) Basophils # (Auto) 0.0 x10^3/uL (0.0-0.2) Sodium Level 142 mmol/L (136-145) Potassium Level 3.8 mmol/L (3.5-5.1) Chloride Level 105 mmol/L (98-107) Carbon Dioxide Level 27 mmol/L (21-32) Anion Gap 10 (6-14) Blood Urea Nitrogen 30 mg/dL (8-26) Creatinine 1.3 mg/dL (0.7-1.3) Estimated GFR (Cockcroft-Gault) 52.5 Glucose Level 107 mg/dL (70-99) Calcium Level 9.0 mg/dL (8.5-10.1) Medications Current Medications Iohexol (Omnipaque 300 Mg/ml) 60 ml 1X ONCE IV Last administered on 07/19/19at 16:19; Start 07/19/19 at 16:30; Stop 07/19/19 at 16:31; Status DC Info (CONTRAST GIVEN -- Rx MONITORING) 1 each PRN DAILY PRN MC SEE COMMENTS; Start 07/19/19 at 16:15; Stop 07/21/19 at 16:14 Aspirin (Children'S Aspirin) 243 mg 1X ONCE PO Last administered on 07/19/19at 17:22; Start 07/19/19 at 17:30; Stop 07/19/19 at 17:31; Status DC Ondansetron HCl (Zofran) 4 mg PRN Q8HRS PRN IV NAUSEA/VOMITING; Start 07/19/19 at 17:30; Stop 07/20/19 at 17:29 Aspirin (Ecotrin) 81 mg DAILY PO ; Start 07/20/19 at 09:00 Clopidogrel Bisulfate (Plavix) 75 mg DAILY PO ; Start 07/20/19 at 09:00 Pregabalin (Lyrica) 50 mg BID PO Last administered on 07/19/19at 21:34; Start 07/19/19 at 21:00 Tamsulosin HCl (Flomax) 0.4 mg QHS PO Last administered on 07/19/19at 21:34; Start 07/19/19 at 21:00 Atenolol (Tenormin) 100 mg DAILY PO ; Start 07/20/19 at 09:00 Calcium/Vitamin D (Oscal D 500mg/ 200uts) 1 tab BIDWMEALS PO ; Start 07/20/19 at 08:00 Lisinopril (Prinivil) 10 mg DAILY PO ; Start 07/20/19 at 09:00 Fluticasone Propionate (Flonase) 2 spray DAILY NS ; Start 07/20/19 at 09:00 Hydrochlorothiazide (Hydrodiuril) 6.25 mg DAILY PO ; Start 07/20/19 at 09:00 Cetirizine HCl (ZyrTEC) 10 mg DAILY PO ; Start 07/20/19 at 09:00 Enoxaparin Sodium (Lovenox 40mg Syringe) 40 mg Q24H SQ Last administered on 07/19/19at 21:34; Start 07/19/19 at 22:00 Active Scripts Active Atorvastatin Calcium 10 Mg Tablet 1 Tab PO QODAY Hydrochlorothiazide Capsule (Hydrochlorothiazide) 12.5 Mg Capsule 12.5 Mg PO DAILY 30 Days Reported Loratadine 10 Mg Tablet 10 Mg PO DAILY Enalapril Maleate 5 Mg Tablet 5 Mg PO DAILY Janumet 50-1,000 Mg Tablet (Sitagliptin Phos/Metformin Hcl) 1 Each Tablet 1 Tab PO BID Flonase Allergy Relief (Fluticasone Propionate) 9.9 Ml [place].susp 1 Sprays NS DAILY Lyrica (Pregabalin) 50 Mg Capsule 1 Cap PO BID Clopidogrel (Clopidogrel Bisulfate) 75 Mg Tablet 1 Tab PO DAILY Atenolol 100 Mg Tablet 1 Tab PO DAILY Tamsulosin Hcl 0.4 Mg Cap.er.24h 1 Cap PO QHS [Vitamin B 12 Inj.] 1,000 Mcg INJ QMONTH Citracal + D Maximum Caplet (Calcium Citrate/Vitamin D3) 1 Each Tablet 1 Each PO BID Aspir 81 (Aspirin) 81 Mg Tablet.dr 1 Tab PO DAILY Vitals/I & O Vital Sign - Last 24 Hours 07/19/19 07/19/19 07/19/19 07/19/19 15:12 15:27 15:35 15:57 Temp 97.5 97.5 Pulse 89 90 86 86 Resp 16 20 16 16 B/P (MAP) 180/87 (118) 180/86 (117) 152/75 (100) 150/73 (98) Pulse Ox 97 97 96 96 O2 Delivery Room Air Room Air 07/19/19 07/19/19 07/19/19 07/19/19 16:25 16:55 19:22 20:00 Temp 98.1 98.1 Pulse 90 92 94 Resp 16 16 20 B/P (MAP) 178/85 (116) 178/77 (110) 190/90 (123) Pulse Ox 97 97 98 O2 Delivery Room Air Room Air Room Air 07/19/19 07/19/19 07/20/19 07/20/19 20:32 22:26 03:30 07:00 Temp 98.0 98.0 97.4 98.0 98.0 97.4 Pulse 85 86 75 75 Resp 20 18 18 B/P (MAP) 153/74 (100) 144/77 (99) 144/79 (100) 135/74 (94) Pulse Ox 97 96 97 O2 Delivery Room Air Room Air Room Air Intake and Output 07/19/19 07/19/19 07/20/19 14:59 22:59 06:59 Intake Total 120 ml 240 ml Output Total 550 ml Balance 120 ml -310 ml ANA LUISA WELLER MD Jul 20, 2019 08:48
[2019-07-20] MEDS ORDERED: ASPIRIN RECTAL 300 MG SUPP. PR PRN (09:00)
[2019-07-20] MEDS ORDERED: ACETAMINOPHEN 650 MG SUPP.RECT. PR PRN (09:00)
[2019-07-20] MEDS ORDERED: ASPIRIN ENTERIC COATED 81 MG TABLET.DR. PO SCH (09:00)
[2019-07-20] MEDS ORDERED: ACETAMINOPHEN 325 MG TABLET. PO PRN (09:00)
--- NOTE | 2019-07-20 09:25 | SSS ---
ADMIT DATE: 07/20/2019 COMBINED HISTORY AND PHYSICAL AND DISCHARGE SUMMARY CHIEF COMPLAINT: Altered consciousness. HISTORY OF PRESENT ILLNESS: The patient is an 84-year-old male who was brought to the Emergency Room via EMS for the above complaint. The patient does not remember the incident therefore this information is taken from the Emergency Room record. The patient apparently had an episode witnessed by family members where he seemed unresponsive for several minutes. He was unable to speak and his right arm appeared flaccid. These symptoms resolved within several minutes. He was brought to the Emergency Room. Evaluation there included a CT of the brain without contrast, which only showed chronic microvascular changes. He had a CTA of the neck and head, which did not show significant plaquing. EKG was within normal limits and the patient was admitted for further care. PAST MEDICAL HISTORY: Diabetes mellitus type 2, hypertension, hyperlipidemia, prostate cancer in 2010, treated with radiation therapy, peripheral artery disease, peripheral neuropathy, chronic anemia, chronic kidney disease stage 3. PAST SURGICAL HISTORY: Cholecystectomy, BPH, left inguinal hernia repair. ALLERGIES: The patient has no known drug allergies. HOME MEDICATIONS: Aspirin 81 mg daily, atenolol 100 mg daily, atorvastatin 10 mg every other day, calcium with vitamin D b.i.d., Plavix 75 mg daily, enalapril 5 mg daily, Flonase nasal spray and loratadine p.r.n., hydrochlorothiazide 12.5 mg capsule daily, Lyrica 50 mg b.i.d., Janumet one b.i.d., Flomax 0.4 mg daily, vitamin B12 injections 1 monthly. FAMILY HISTORY: Noncontributory. SOCIAL HISTORY: The patient is . He is retired from the [employer] office. He has never smoked cigarettes and does not drink alcohol. REVIEW OF SYSTEMS: The patient states that he is feeling fine. He denies fever or chills. He denies cough or shortness of breath. He denies chest pain or palpitations. He denies abdominal pain, nausea, vomiting or problem with his bowels. He denies lower extremity edema. He has been taking his usual medications daily. He has already received a flu shot in our office for this season. PHYSICAL EXAMINATION: GENERAL: The patient is alert and oriented x 3, sitting up comfortably in bed, in no acute distress. HEENT: PERRL, EOMI, sclerae are clear. Oropharynx: Mucous membranes moist. NECK: Supple, without lymphadenopathy. CHEST: Clear to auscultation. CARDIOVASCULAR: Regular rhythm. ABDOMEN: Soft, nontender, normoactive bowel sounds are present. EXTREMITIES: Bilateral lower extremities are without edema. NEUROLOGIC: Grossly intact. HOSPITAL COURSE: The patient was placed on telemetry where he has remained in sinus rhythm. He has had no further episodes of change in consciousness. Troponin has been negative x 3. The patient has been seen by Dr. Maddox who may be ordering further testing today. The patient will also be seen by physical and occupational therapy. The patient appears at his baseline mental status and is without symptoms. It is anticipated, he will be able to return home later today if Dr. Maddox is in agreement. FINAL DIAGNOSES: 1. Brief episode of altered consciousness. 2. Hypertension. 3. Diabetes mellitus type 2. 4. Chronic kidney disease stage 3. 5. Hyperlipidemia. 6. Anemia. DISCHARGE MEDICATIONS: Remain the same as at admission. FOLLOWUP: With Dr. Morfin as needed. ANA LUISA MORFIN MD DR: NIDA/issac JOB#: [id number] / [id number]
[2019-07-20] MEDS: FLUTICASONE 50MCG/NASAL SPRAY 16GM BOTTLE. NS SCH (10:43)
[2019-07-20 10:58] VITALS: BP 161/74
[2019-07-20] MEDS ORDERED: ASPIRIN ENTERIC COATED 325 MG TABLET.DR. PO SCH (11:00)
--- NOTE | 2019-07-20 12:22 | PDOC2 ---
NEUROLOGY CONSULT Date of Admission Date of Admission DATE: 07/20/19 TIME: 12:11 Reason for Consult Reason for Consult: Stroke symptoms, syncope Referring Physician Referring Physician: Dr. Morfin Source Source: Chart review, Patient History of Present Illness History of Present Illness The patient is an 84-year-old right-handed male who came with emergency department having fainted at the dining room table about 2 PM. There was some blurred vision. Family noticed that he was out for several minutes, then had some trouble speaking and his right arm was flaccid for several minutes. There is no history of stroke, seizure, or head injury. He feels fine now. There was no headache. The emergency room physician ordered CT head and CT angiogram, negative as reviewed below. At baseline, he gets around with a cane Past Medical History Cardiovascular: HTN, Hyperlipidemia, Other (Deep vein thrombosis) CENTRAL NERVOUS SYSTEM: Periperal neuropathy GI: Other ( diarrhea) Musculoskeletal: low back pain, Osteoarthritis Renal/: Prostate Ca. ( surgery and radiation), Other (impotence) Endocrine: Diabetes Past Surgical History Past Surgical History: Cholecystectomy, Cataract Removal, Hernia Repair, Other ( prostate) Family History Family History: CAD Social History Social History , no alcohol or tobacco Current Medications Current Medications Current Medications Iohexol (Omnipaque 300 Mg/ml) 60 ml 1X ONCE IV Last administered on 07/19/19at 16:19; Start 07/19/19 at 16:30; Stop 07/19/19 at 16:31; Status DC Info (CONTRAST GIVEN -- Rx MONITORING) 1 each PRN DAILY PRN MC SEE COMMENTS; Start 07/19/19 at 16:15; Stop 07/21/19 at 16:14 Aspirin (Children'S Aspirin) 243 mg 1X ONCE PO Last administered on 07/19/19at 17:22; Start 07/19/19 at 17:30; Stop 07/19/19 at 17:31; Status DC Ondansetron HCl (Zofran) 4 mg PRN Q8HRS PRN IV NAUSEA/VOMITING; Start 07/19/19 at 17:30; Stop 07/20/19 at 17:29 Aspirin (Ecotrin) 81 mg DAILY PO ; Start 07/20/19 at 09:00; Stop 07/20/19 at 08:52; Status DC Clopidogrel Bisulfate (Plavix) 75 mg DAILY PO Last administered on 07/20/19 10:44; Start 07/20/19 at 09:00 Pregabalin (Lyrica) 50 mg BID PO Last administered on 07/20/19 10:45; Start 07/19/19 at 21:00 Tamsulosin HCl (Flomax) 0.4 mg QHS PO Last administered on 07/19/19 21:34; Start 07/19/19 at 21:00 Atenolol (Tenormin) 100 mg DAILY PO Last administered on 07/20/19 10:46; Start 07/20/19 at 09:00 Calcium/Vitamin D (Oscal D 500mg/ 200uts) 1 tab BIDWMEALS PO Last administered on 07/20/19 10:44; Start 07/20/19 at 08:00 Lisinopril (Prinivil) 10 mg DAILY PO Last administered on 07/20/19 10:45; Start 07/20/19 at 09:00 Fluticasone Propionate (Flonase) 2 spray DAILY NS Last administered on 07/20/19 10:43; Start 07/20/19 at 09:00 Hydrochlorothiazide (Hydrodiuril) 6.25 mg DAILY PO Last administered on 10:45; Start 07/20/19 at 09:00 Cetirizine HCl (ZyrTEC) 10 mg DAILY PO Last administered on 07/20/19 10:45; Start 07/20/19 at 09:00 Enoxaparin Sodium (Lovenox 40mg Syringe) 40 mg Q24H SQ Last administered on 07/19/19 21:34; Start 07/19/19 at 22:00 Acetaminophen (Tylenol) 650 mg PRN Q6HRS PRN PO TEMP > 100.4F; Start 07/20/19 at 09:00 Acetaminophen (Tylenol Supp) 650 mg PRN Q4HRS PRN MI TEMP > 100.4F; Start 07/20/19 at 09:00 Aspirin (Ecotrin) 325 mg DAILYWBKFT PO Last administered on 07/20/19 10:46; Start 07/20/19 at 11:00 Aspirin (Aspirin Rectal Supp) 300 mg PRN DAILY PRN MI IF UNABLE TO TAKE PO; Start 07/20/19 at 09:00 Active Scripts Active Atorvastatin Calcium 10 Mg Tablet 1 Tab PO QODAY Hydrochlorothiazide Capsule (Hydrochlorothiazide) 12.5 Mg Capsule 12.5 Mg PO DAILY 30 Days Reported Loratadine 10 Mg Tablet 10 Mg PO DAILY Enalapril Maleate 5 Mg Tablet 5 Mg PO DAILY Janumet 50-1,000 Mg Tablet (Sitagliptin Phos/Metformin Hcl) 1 Each Tablet 1 Tab PO BID Flonase Allergy Relief (Fluticasone Propionate) 9.9 Ml [place].susp 1 Sprays NS DAILY Lyrica (Pregabalin) 50 Mg Capsule 1 Cap PO BID Clopidogrel (Clopidogrel Bisulfate) 75 Mg Tablet 1 Tab PO DAILY Atenolol 100 Mg Tablet 1 Tab PO DAILY Tamsulosin Hcl 0.4 Mg Cap.er.24h 1 Cap PO QHS [Vitamin B 12 Inj.] 1,000 Mcg INJ QMONTH Citracal + D Maximum Caplet (Calcium Citrate/Vitamin D3) 1 Each Tablet 1 Each PO BID Aspir 81 (Aspirin) 81 Mg Tablet. 1 Tab PO DAILY Allergies Allergies: Coded Allergies: No Known Drug Allergies (Unverified , 12/26/17) ROS Review of System Negative for fever, chills, weight loss, shortness of breath, chest pain, indigestion, hematochezia, melena, and dysuria. Full 14-point review of systems is negative. Physical Exam Physical Examination General: Well-developed, well-nourished black male in no acute distress HEENT: Normocephalic and�atraumatic.Temporal arteries�pulsatile and nontender.� Neck: Supple without bruit, no meningismus� Musculoskeletal: Stability:�see neurologic. Gait exam:�see neurologic. Tone:�see neurologic.�Strength:�see neurologic.� Neurological: Mental Status:�intact, orientation, memory, attention span/concentration, language, fund of knowledge normal. Cranial Nerves:�Pupils equal and reactive to light, extraocular movements are�intact, visual ly are full to confrontation. Facial sensation is normal. There is no facial asymmetry. Vest ibulo-ocular reflex is intact. Palate elevates and tongue protrudes in midline. All other cranial related problems are negative except as mentioned before.�Reflexes:�1+ and symmetric with flexor plantar responses. Motor:�5/5 strength with normal tone and bulk. Coordination:�Finger-nose finger and [id number]-[id number] testing are normal. Rapid alternating movements and fine finger movements are intact. Gait:� arthritic, a little apraxic, does well with a walker. Sensory:� stocking loss. Vitals VITALS Vital Signs Date Time Temp Pulse Resp B/P (MAP) Pulse Ox O2 Delivery O2 Flow Rate FiO2 07/20/19 10:58 98.1 75 18 161/74 (103) 96 Room Air 98.1 Labs Labs Laboratory Tests Test 07/19/19 15:30 07/19/19 18:15 07/19/19 21:12 07/19/19 21:30 White Blood Count 7.4 x10^3/uL (4.0-11.0) Red Blood Count 4.25 x10^6/uL (4.30-5.70) Hemoglobin 12.4 g/dL (13.0-17.5) Hematocrit 37.2 % (39.0-53.0) Mean Corpuscular Volume 87 fL (79-100) Mean Corpuscular Hemoglobin 29 pg (25-35) Mean Corpuscular Hemoglobin Concent 34 g/dL (31-37) Red Cell Distribution Width 14.4 % (11.5-14.5) Platelet Count 224 x10^3/uL (140-400) Neutrophils (%) (Auto) 68 % (31-73) Lymphocytes (%) (Auto) 23 % (24-48) Monocytes (%) (Auto) 7 % (0-9) Eosinophils (%) (Auto) 1 % (0-3) Basophils (%) (Auto) 0 % (0-3) Neutrophils # (Auto) 5.1 x10^3/uL (1.8-7.7) Lymphocytes # (Auto) 1.7 x10^3/uL (1.0-4.8) Monocytes # (Auto) 0.5 x10^3/uL (0.0-1.1) Eosinophils # (Auto) 0.1 x10^3/uL (0.0-0.7) Basophils # (Auto) 0.0 x10^3/uL (0.0-0.2) Prothrombin Time 13.7 SEC (11.7-14.0) Prothromb Time International Ratio 1.1 (0.8-1.1) Activated Partial Thromboplast Time 26 SEC (24-38) D-Dimer (Kandi) 0.62 ug/mlFEU (0.00-0.50) Sodium Level 140 mmol/L (136-145) Potassium Level 4.2 mmol/L (3.5-5.1) Chloride Level 103 mmol/L (98-107) Carbon Dioxide Level 26 mmol/L (21-32) Anion Gap 11 (6-14) Blood Urea Nitrogen 27 mg/dL (8-26) Creatinine 1.6 mg/dL (0.7-1.3) Estimated GFR (Cockcroft-Gault) 41.3 BUN/Creatinine Ratio 17 (6-20) Glucose Level 152 mg/dL (70-99) Calcium Level 9.6 mg/dL (8.5-10.1) Total Bilirubin 0.4 mg/dL (0.2-1.0) Aspartate Amino Transf (AST/SGOT) 18 U/L (15-37) Alanine Aminotransferase (ALT/SGPT) 15 U/L (16-63) Alkaline Phosphatase 44 U/L (46-116) Creatine Kinase 61 U/L (39-308) 55 U/L (39-308) 53 U/L (39-308) Creatine Kinase MB (Mass) 1.0 ng/mL (0.0-3.6) 0.9 ng/mL (0.0-3.6) 0.8 ng/mL (0.0-3.6) Creatine Kinase MB Relative Index % (0-4) % (0-4) % (0-4) Troponin I Quantitative < 0.017 ng/mL (0.000-0.055) < 0.017 ng/mL (0.000-0.055) < 0.017 ng/mL (0.000-0.055) Total Protein 7.5 g/dL (6.4-8.2) Albumin 3.5 g/dL (3.4-5.0) Albumin/Globulin Ratio 0.9 (1.0-1.7) Urine Collection Type Unknown Urine Color Yellow Urine Clarity Clear Urine pH 5.5 Urine Specific Zahl >=1.030 Urine Protein Negative mg/dL (NEG-TRACE) Urine Glucose (UA) Negative mg/dL (NEG) Urine Ketones (Stick) Negative mg/dL (NEG) Urine Blood Negative (NEG) Urine Nitrite Negative (NEG) Urine Bilirubin Negative (NEG) Urine Urobilinogen Dipstick 0.2 mg/dL (0.2 mg/dL) Urine Leukocyte Esterase Negative (NEG) Urine RBC Rare /HPF (0-2) Urine WBC 0 /HPF (0-4) Urine Squamous Epithelial Cells Occ /LPF Urine Bacteria 0 /HPF (0-FEW) Urine Mucus Slight /LPF Test 07/19/19 21:33 07/20/19 04:00 Glucose (Fingerstick) 199 mg/dL (70-99) White Blood Count 4.9 x10^3/uL (4.0-11.0) Red Blood Count 3.66 x10^6/uL (4.30-5.70) Hemoglobin 10.9 g/dL (13.0-17.5) Hematocrit 31.6 % (39.0-53.0) Mean Corpuscular Volume 86 fL (79-100) Mean Corpuscular Hemoglobin 30 pg (25-35) Mean Corpuscular Hemoglobin Concent 34 g/dL (31-37) Red Cell Distribution Width 14.2 % (11.5-14.5) Platelet Count 188 x10^3/uL (140-400) Neutrophils (%) (Auto) 65 % (31-73) Lymphocytes (%) (Auto) 23 % (24-48) Monocytes (%) (Auto) 9 % (0-9) Eosinophils (%) (Auto) 2 % (0-3) Basophils (%) (Auto) 0 % (0-3) Neutrophils # (Auto) 3.2 x10^3/uL (1.8-7.7) Lymphocytes # (Auto) 1.1 x10^3/uL (1.0-4.8) Monocytes # (Auto) 0.5 x10^3/uL (0.0-1.1) Eosinophils # (Auto) 0.1 x10^3/uL (0.0-0.7) Basophils # (Auto) 0.0 x10^3/uL (0.0-0.2) Sodium Level 142 mmol/L (136-145) Potassium Level 3.8 mmol/L (3.5-5.1) Chloride Level 105 mmol/L (98-107) Carbon Dioxide Level 27 mmol/L (21-32) Anion Gap 10 (6-14) Blood Urea Nitrogen 30 mg/dL (8-26) Creatinine 1.3 mg/dL (0.7-1.3) Estimated GFR (Cockcroft-Gault) 52.5 Glucose Level 107 mg/dL (70-99) Calcium Level 9.0 mg/dL (8.5-10.1) Laboratory Tests Test 07/19/19 15:30 07/19/19 18:15 07/19/19 21:12 07/19/19 21:30 White Blood Count 7.4 x10^3/uL (4.0-11.0) Red Blood Count 4.25 x10^6/uL (4.30-5.70) Hemoglobin 12.4 g/dL (13.0-17.5) Hematocrit 37.2 % (39.0-53.0) Mean Corpuscular Volume 87 fL (79-100) Mean Corpuscular Hemoglobin 29 pg (25-35) Mean Corpuscular Hemoglobin Concent 34 g/dL (31-37) Red Cell Distribution Width 14.4 % (11.5-14.5) Platelet Count 224 x10^3/uL (140-400) Neutrophils (%) (Auto) 68 % (31-73) Lymphocytes (%) (Auto) 23 % (24-48) Monocytes (%) (Auto) 7 % (0-9) Eosinophils (%) (Auto) 1 % (0-3) Basophils (%) (Auto) 0 % (0-3) Neutrophils # (Auto) 5.1 x10^3/uL (1.8-7.7) Lymphocytes # (Auto) 1.7 x10^3/uL (1.0-4.8) Monocytes # (Auto) 0.5 x10^3/uL (0.0-1.1) Eosinophils # (Auto) 0.1 x10^3/uL (0.0-0.7) Basophils # (Auto) 0.0 x10^3/uL (0.0-0.2) Prothrombin Time 13.7 SEC (11.7-14.0) Prothromb Time International Ratio 1.1 (0.8-1.1) Activated Partial Thromboplast Time 26 SEC (24-38) D-Dimer (Kandi) 0.62 ug/mlFEU (0.00-0.50) Sodium Level 140 mmol/L (136-145) Potassium Level 4.2 mmol/L (3.5-5.1) Chloride Level 103 mmol/L (98-107) Carbon Dioxide Level 26 mmol/L (21-32) Anion Gap 11 (6-14) Blood Urea Nitrogen 27 mg/dL (8-26) Creatinine 1.6 mg/dL (0.7-1.3) Estimated GFR (Cockcroft-Gault) 41.3 BUN/Creatinine Ratio 17 (6-20) Glucose Level 152 mg/dL (70-99) Calcium Level 9.6 mg/dL (8.5-10.1) Total Bilirubin 0.4 mg/dL (0.2-1.0) Aspartate Amino Transf (AST/SGOT) 18 U/L (15-37) Alanine Aminotransferase (ALT/SGPT) 15 U/L (16-63) Alkaline Phosphatase 44 U/L (46-116) Creatine Kinase 61 U/L (39-308) 55 U/L (39-308) 53 U/L (39-308) Creatine Kinase MB (Mass) 1.0 ng/mL (0.0-3.6) 0.9 ng/mL (0.0-3.6) 0.8 ng/mL (0.0-3.6) Creatine Kinase MB Relative Index % (0-4) % (0-4) % (0-4) Troponin I Quantitative < 0.017 ng/mL (0.000-0.055) < 0.017 ng/mL (0.000-0.055) < 0.017 ng/mL (0.000-0.055) Total Protein 7.5 g/dL (6.4-8.2) Albumin 3.5 g/dL (3.4-5.0) Albumin/Globulin Ratio 0.9 (1.0-1.7) Urine Collection Type Unknown Urine Color Yellow Urine Clarity Clear Urine pH 5.5 Urine Specific Zahl >=1.030 Urine Protein Negative mg/dL (NEG-TRACE) Urine Glucose (UA) Negative mg/dL (NEG) Urine Ketones (Stick) Negative mg/dL (NEG) Urine Blood Negative (NEG) Urine Nitrite Negative (NEG) Urine Bilirubin Negative (NEG) Urine Urobilinogen Dipstick 0.2 mg/dL (0.2 mg/dL) Urine Leukocyte Esterase Negative (NEG) Urine RBC Rare /HPF (0-2) Urine WBC 0 /HPF (0-4) Urine Squamous Epithelial Cells Occ /LPF Urine Bacteria 0 /HPF (0-FEW) Urine Mucus Slight /LPF Test 07/19/19 21:33 07/20/19 04:00 Glucose (Fingerstick) 199 mg/dL (70-99) White Blood Count 4.9 x10^3/uL (4.0-11.0) Red Blood Count 3.66 x10^6/uL (4.30-5.70) Hemoglobin 10.9 g/dL (13.0-17.5) Hematocrit 31.6 % (39.0-53.0) Mean Corpuscular Volume 86 fL (79-100) Mean Corpuscular Hemoglobin 30 pg (25-35) Mean Corpuscular Hemoglobin Concent 34 g/dL (31-37) Red Cell Distribution Width 14.2 % (11.5-14.5) Platelet Count 188 x10^3/uL (140-400) Neutrophils (%) (Auto) 65 % (31-73) Lymphocytes (%) (Auto) 23 % (24-48) Monocytes (%) (Auto) 9 % (0-9) Eosinophils (%) (Auto) 2 % (0-3) Basophils (%) (Auto) 0 % (0-3) Neutrophils # (Auto) 3.2 x10^3/uL (1.8-7.7) Lymphocytes # (Auto) 1.1 x10^3/uL (1.0-4.8) Monocytes # (Auto) 0.5 x10^3/uL (0.0-1.1) Eosinophils # (Auto) 0.1 x10^3/uL (0.0-0.7) Basophils # (Auto) 0.0 x10^3/uL (0.0-0.2) Sodium Level 142 mmol/L (136-145) Potassium Level 3.8 mmol/L (3.5-5.1) Chloride Level 105 mmol/L (98-107) Carbon Dioxide Level 27 mmol/L (21-32) Anion Gap 10 (6-14) Blood Urea Nitrogen 30 mg/dL (8-26) Creatinine 1.3 mg/dL (0.7-1.3) Estimated GFR (Cockcroft-Gault) 52.5 Glucose Level 107 mg/dL (70-99) Calcium Level 9.0 mg/dL (8.5-10.1) Images Images CT head. CTA head and neck INDICATION: Blurry vision, syncope TECHNIQUE: Sequential axial images through the head were obtained without the administration of IV contrast. Sequential axial images through the head and neck were obtained following the administration of 100 mL of Isovue 370 IV contrast. 3-D reformatted images were reconstructed from the axial data and reviewed. Comparisons: None FINDINGS: Head without: No focal parenchymal lesion or hemorrhage is identified. There is no midline shift or sulcal effacement. Patchy hypodensity in the periventricular white matter. Ramires-white distinction is preserved. The ventricular system is within normal limits without compression hydrocephalus. The basal cisterns are well maintained. The visualized portions of the paranasal sinuses and mastoid air cells are well-pneumatized. No acute fractures. CTA NECK: Visualized portions of the thoracic aorta are unremarkable. There is a two-vessel aortic arch configuration with common origin of the brachiocephalic and left common carotid arteries. Right common carotid artery is patent without evidence of stenosis, occlusion or aneurysm. There is circumferential calcified plaque at the origin of the right internal carotid artery without significant stenosis. Left common carotid artery is patent without evidence of stenosis, occlusion or aneurysm. Mild calcified plaque at the origin of the left internal carotid artery without significant stenosis. Right vertebral artery is patent to basilar confluence. No evidence of stenosis, occlusion or aneurysm. Left vertebral artery is patent to the basilar confluence. No evidence of stenosis, occlusion or aneurysm. There is heterogenous appearance of the thyroid gland. CTA HEAD: Circumferential calcified plaque at the cavernous segment of the right internal carotid artery without significant stenosis. Right MCA is patent. Right MARI[place]TA is patent. Circumferential calcified plaque at the cavernous segment of the left internal carotid artery without significant stenosis. Left MCA is patent. Left MARIETTA is patent. Basilar artery is patent without evidence of stenosis, occlusion or aneurysm. Major branch vessels arising off the basilar artery are patent proximally. provider relations coordinator are patent bilaterally. IMPRESSION: 1. Patchy hypodensity in the periventricular white matter representing small vessel ischemic change, technically age indeterminate without prior imaging. 2. Calcified plaque at the origins of the internal carotid arteries bilaterally without significant stenosis. 3. Calcified plaque at the cavernous segments of the internal carotid arteries bilaterally without significant stenosis. 4. There remains concerns for acute ischemia MRI would better evaluate. Carotid doppler ultrasound History: Syncope, aphasia, unilateral arm weakness Multiple grayscale, color, and duplex spectral analysis waveform sonographic images were acquired of the carotid, subclavian, and vertebral arteries. Comparison: None Findings: RIGHT: PSV cm/sec EDV cm/sec Common carotid artery 100 15 Maximal internal carotid artery 93 28 External carotid artery 79 Vertebral artery 49 ICA/CCA ratio 0.93 LEFT: PSV cm/sec EDV cm/sec Common carotid artery 97 21 Maximum internal carotid artery 94 31 External carotid artery 60 Vertebral artery 59 ICA/CCA ratio 0.97 Velocities used to determine stenosis are known to correlate with NASCET angiographic criteria. There is antegrade flow in the bilateral vertebral arteries. There is mild hyperechoic calcified plaque of the bilateral carotid bifurcations and proximal internal carotid arteries, no significant stenosis demonstrated on grayscale or color images. Impression: 1. There is no evidence of a hemodynamically significant stenosis. There is calcified plaque of the carotid bifurcations and proximal internal carotid arteries bilaterally. Assessment/Plan Assessment/Plan Impression: Transient ischemic attack, consider seizure, vasovagal syncope, migraine headache although no history of this, other metabolic issue, no obvious sign of this. 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 Thank you for letting me help with the patient's care. MOLLY BURCH MD Jul 20, 2019 12:22
--- NOTE | 2019-07-20 15:18 | NUR ---
SS following for discharge planning. SS reviewed pt chart. Pt is from home and is currently on room air. PT/OT recommended home when goals are met. SS will continue to follow for discharge planning.
[2019-07-20 15:25] VITALS: BP 118/64
--- NOTE | 2019-07-20 16:42 | RAD ---
MRI Brain without contrast History: TIA, right arm weakness Technique: Multiplanar, multisequential noncontrast MR imaging was performed of the brain. Comparison: Head CT 07/19/2019 Findings: There is no evidence of recent infarct or cytotoxic edema. Ventricular size is within normal limits. There is [id number] generalized supratentorial atrophy. There is scattered overall mild T2 and FLAIR hyperintense abnormality of the supratentorial parenchyma bilaterally greatest of the periatrial white matter. There is also moderate T2 and FLAIR hyperintense signal abnormality of the daniel. There is no significant hemosiderin deposition of the brain parenchyma.There is no significant midline shift, intraaxial mass effect, or focal abnormal extra-axial fluid collection. There is no significant signal abnormality of the brain parenchyma. There is preservation of the major intracranial flow-voids at the skull base. There is minimal fluid left lateral mastoid air cells.The cerebellar tonsils are normal in location. There is no significant abnormality of the pineal gland or pituitary gland. There is patchy minimal ethmoid air cell mucosal thickening. There is preserved marrow signal of the clivus. There has been lens surgery bilaterally, somewhat disconjugate gaze. Impression: 1. There is no evidence of recent infarct or intracranial mass effect. There is generalized supratentorial atrophy. Scattered T2 and FLAIR hyperintense abnormality of the daniel and supratentorial parenchyma is nonspecific, more commonly due to chronic microvascular ischemic disease in a patient this age. Electronically signed by: Juan C Devlin MD (07/20/2019 4:40 PM) [id number]
--- NOTE | 2019-07-20 17:06 | EEG ---
DATE OF SERVICE: 07/20/2019 ELECTROENCEPHALOGRAM EEG NUMBER: [id number], performed on 07/20/2019. OBJECTIVE: The patient is an 84-year-old male with episode of prolonged syncope and he also had some right arm weakness shortly thereafter. DESCRIPTION: This is a digital study. Electrodes are placed according to the international 10-20 system. Bipolar and referential montages are available. Activation procedures typically include hyperventilation and intermittent photic stimulation. INTERPRETATION: The waking background consists of 9-10 Hz, 50-100 microvolt activity, symmetrically distributed over parietooccipital regions and reactive to eye opening. Hyperventilation and intermittent photic stimulation are noncontributory. Stage 1 sleep is achieved with normal electroencephalogram patterns. IMPRESSION: This electroencephalogram with the patient awake and asleep is within normal limits. There is no focal, paroxysmal, or epileptiform activity. Thank you for letting us help with the patient's care. MOLLY BURCH MD DR: BESSY/issac JOB#: [id number] / [id number] PJ Kelly MD
[2019-07-20 19:00] VITALS: BP 148/76
[2019-07-20] MEDS: TAMSULOSIN 0.4 MG CAP.ER.24H. PO SCH (20:49)
[2019-07-20] MEDS: ENOXAPARIN 40 MG/0.4 ML SYRINGE. SQ SCH (20:50)
[2019-07-20 23:00] VITALS: BP 136/76
[2019-07-21 03:00] VITALS: BP 120/70
[2019-07-21 04:51] LABS: CHOLESTEROL/HDL RATIO 3.5
[2019-07-21 07:00] VITALS: BP 144/69
[2019-07-21] MEDS ORDERED: ASPIRIN ENTERIC COATED 81 MG TABLET.DR. PO SCH (08:00)
[2019-07-21] MEDS: FLUTICASONE 50MCG/NASAL SPRAY 16GM BOTTLE. NS SCH (08:41)
--- NOTE | 2019-07-21 08:41 | PDOC ---
PROGRESS NOTES Subjective Subjective Patient without complaint, feels fine. Objective Objective Vital Signs Date Time Temp Pulse Resp B/P (MAP) Pulse Ox O2 Delivery O2 Flow Rate FiO2 07/21/19 07:45 Room Air 07/21/19 03:00 98.2 73 18 120/70 (87) 95 98.2 l Intake and Output 07/21/19 07:00 Intake Total 1140 ml Output Total 950 ml Balance 190 ml Intake Oral 1140 ml Output Urine Total 950 ml Physical Exam Abdomen: Normal bowel sounds, Soft, No tenderness Heart: Regular rate Extremities: No edema General: Alert, Oriented X3, No acute distress Lungs: Clear to auscultation Assessment Assessment Problems Medical Problems: (1) Syncope Status: Acute (2) TIA (transient ischemic attack) Status: Acute Plan Plan of Care 1. Episode of altered consciousness - resolved, no further symptoms. EEG, MRI brain and Carotid dopplers all unremarkable. No echo yet, will have patient follow up with Dr Prescott for this as outpatient if unable to have done here today. 2. DM2 - well controlled. Discussed with patient that his symptoms at home may have been due to some hypoglycemia as it was 1PM and he had not eaten since a light breakfast before going to conf[employer]ianism that morning. Patient denies other e pisodes of hypoglycemia. Advised mid-morning snack with some protein, he will work on this. 3. HTN - controlled, continue home meds. 4. CKD III - stable. 5. hyperlipidemia - very well controlled with low dose Atorvastatin, continue. 6. PAD - stable, continue ASA and Plavix per Cardiology. Comment Review of Relevant I have reviewed the following items danny (where applicable) has been applied. Labs Laboratory Tests Test 07/19/19 15:30 07/19/19 18:15 07/19/19 21:12 07/19/19 21:30 White Blood Count 7.4 x10^3/uL (4.0-11.0) Red Blood Count 4.25 x10^6/uL (4.30-5.70) Hemoglobin 12.4 g/dL (13.0-17.5) Hematocrit 37.2 % (39.0-53.0) Mean Corpuscular Volume 87 fL (79-100) Mean Corpuscular Hemoglobin 29 pg (25-35) Mean Corpuscular Hemoglobin Concent 34 g/dL (31-37) Red Cell Distribution Width 14.4 % (11.5-14.5) Platelet Count 224 x10^3/uL (140-400) Neutrophils (%) (Auto) 68 % (31-73) Lymphocytes (%) (Auto) 23 % (24-48) Monocytes (%) (Auto) 7 % (0-9) Eosinophils (%) (Auto) 1 % (0-3) Basophils (%) (Auto) 0 % (0-3) Neutrophils # (Auto) 5.1 x10^3/uL (1.8-7.7) Lymphocytes # (Auto) 1.7 x10^3/uL (1.0-4.8) Monocytes # (Auto) 0.5 x10^3/uL (0.0-1.1) Eosinophils # (Auto) 0.1 x10^3/uL (0.0-0.7) Basophils # (Auto) 0.0 x10^3/uL (0.0-0.2) Prothrombin Time 13.7 SEC (11.7-14.0) Prothromb Time International Ratio 1.1 (0.8-1.1) Activated Partial Thromboplast Time 26 SEC (24-38) D-Dimer (Kandi) 0.62 ug/mlFEU (0.00-0.50) Sodium Level 140 mmol/L (136-145) Potassium Level 4.2 mmol/L (3.5-5.1) Chloride Level 103 mmol/L (98-107) Carbon Dioxide Level 26 mmol/L (21-32) Anion Gap 11 (6-14) Blood Urea Nitrogen 27 mg/dL (8-26) Creatinine 1.6 mg/dL (0.7-1.3) Estimated GFR (Cockcroft-Gault) 41.3 BUN/Creatinine Ratio 17 (6-20) Glucose Level 152 mg/dL (70-99) Calcium Level 9.6 mg/dL (8.5-10.1) Total Bilirubin 0.4 mg/dL (0.2-1.0) Aspartate Amino Transf (AST/SGOT) 18 U/L (15-37) Alanine Aminotransferase (ALT/SGPT) 15 U/L (16-63) Alkaline Phosphatase 44 U/L (46-116) Creatine Kinase 61 U/L (39-308) 55 U/L (39-308) 53 U/L (39-308) Creatine Kinase MB (Mass) 1.0 ng/mL (0.0-3.6) 0.9 ng/mL (0.0-3.6) 0.8 ng/mL (0.0-3.6) Creatine Kinase MB Relative Index % (0-4) % (0-4) % (0-4) Troponin I Quantitative < 0.017 ng/mL (0.000-0.055) < 0.017 ng/mL (0.000-0.055) < 0.017 ng/mL (0.000-0.055) Total Protein 7.5 g/dL (6.4-8.2) Albumin 3.5 g/dL (3.4-5.0) Albumin/Globulin Ratio 0.9 (1.0-1.7) Urine Collection Type Unknown Urine Color Yellow Urine Clarity Clear Urine pH 5.5 Urine Specific [place] >=1.030 Urine Protein Negative mg/dL (NEG-TRACE) Urine Glucose (UA) Negative mg/dL (NEG) Urine Ketones (Stick) Negative mg/dL (NEG) Urine Blood Negative (NEG) Urine Nitrite Negative (NEG) Urine Bilirubin Negative (NEG) Urine Urobilinogen Dipstick 0.2 mg/dL (0.2 mg/dL) Urine Leukocyte Esterase Negative (NEG) Urine RBC Rare /HPF (0-2) Urine WBC 0 /HPF (0-4) Urine Squamous Epithelial Cells Occ /LPF Urine Bacteria 0 /HPF (0-FEW) Urine Mucus Slight /LPF Test 07/19/19 21:33 07/20/19 04:00 07/20/19 07:37 07/20/19 17:34 Glucose (Fingerstick) 199 mg/dL (70-99) 100 mg/dL (70-99) 138 mg/dL (70-99) White Blood Count 4.9 x10^3/uL (4.0-11.0) Red Blood Count 3.66 x10^6/uL (4.30-5.70) Hemoglobin 10.9 g/dL (13.0-17.5) Hematocrit 31.6 % (39.0-53.0) Mean Corpuscular Volume 86 fL (79-100) Mean Corpuscular Hemoglobin 30 pg (25-35) Mean Corpuscular Hemoglobin Concent 34 g/dL (31-37) Red Cell Distribution Width 14.2 % (11.5-14.5) Platelet Count 188 x10^3/uL (140-400) Neutrophils (%) (Auto) 65 % (31-73) Lymphocytes (%) (Auto) 23 % (24-48) Monocytes (%) (Auto) 9 % (0-9) Eosinophils (%) (Auto) 2 % (0-3) Basophils (%) (Auto) 0 % (0-3) Neutrophils # (Auto) 3.2 x10^3/uL (1.8-7.7) Lymphocytes # (Auto) 1.1 x10^3/uL (1.0-4.8) Monocytes # (Auto) 0.5 x10^3/uL (0.0-1.1) Eosinophils # (Auto) 0.1 x10^3/uL (0.0-0.7) Basophils # (Auto) 0.0 x10^3/uL (0.0-0.2) Sodium Level 142 mmol/L (136-145) Potassium Level 3.8 mmol/L (3.5-5.1) Chloride Level 105 mmol/L (98-107) Carbon Dioxide Level 27 mmol/L (21-32) Anion Gap 10 (6-14) Blood Urea Nitrogen 30 mg/dL (8-26) Creatinine 1.3 mg/dL (0.7-1.3) Estimated GFR (Cockcroft-Gault) 52.5 Glucose Level 107 mg/dL (70-99) Calcium Level 9.0 mg/dL (8.5-10.1) Triglycerides Level 48 mg/dL (0-150) Cholesterol Level 121 mg/dL (0-200) LDL Cholesterol, Calculated 76 mg/dL (0-100) VLDL Cholesterol, Calculated 10 mg/dL (0-40) Non-HDL Cholesterol Calculated 86 mg/dL (0-129) HDL Cholesterol 35 mg/dL (40-60) Cholesterol/HDL Ratio 3.5 Test 07/20/19 20:51 Glucose (Fingerstick) 171 mg/dL (70-99) Laboratory Tests Test 07/20/19 17:34 07/20/19 20:51 Glucose (Fingerstick) 138 mg/dL (70-99) 171 mg/dL (70-99) Medications Current Medications Iohexol (Omnipaque 300 Mg/ml) 60 ml 1X ONCE IV Last administered on 07/19/19 16:19; Start 07/19/19 at 16:30; Stop 07/19/19 at 16:31; Status DC Info (CONTRAST GIVEN -- Rx MONITORING) 1 each PRN DAILY PRN MC SEE COMMENTS; Start 07/19/19 at 16:15; Stop 07/21/19 at 16:14 Aspirin (Children'S Aspirin) 243 mg 1X ONCE PO Last administered on 07/19/19at 17:22; Start 07/19/19 at 17:30; Stop 07/19/19 at 17:31; Status DC Ondansetron HCl (Zofran) 4 mg PRN Q8HRS PRN IV NAUSEA/VOMITING; Start 07/19/19 at 17:30; Stop 07/20/19 at 17:29; Status DC Aspirin (Ecotrin) 81 mg DAILY PO ; Start 07/20/19 at 09:00; Stop 07/20/19 at 08:52; Status DC Clopidogrel Bisulfate (Plavix) 75 mg DAILY PO Last administered on 07/20/19at 10:44; Start 07/20/19 at 09:00 Pregabalin (Lyrica) 50 mg BID PO Last administered on 07/20/19at 20:49; Start 07/19/19 at 21:00 Tamsulosin HCl (Flomax) 0.4 mg QHS PO Last administered on 07/20/19 20:49; Start 07/19/19 at 21:00 Atenolol (Tenormin) 100 mg DAILY PO Last administered on 07/20/19at 10:46; Start 07/20/19 at 09:00 Calcium/Vitamin D (Oscal D 500mg/ 200uts) 1 tab BIDWMEALS PO Last administered on 07/20/19 17:45; Start 07/20/19 at 08:00 Lisinopril (Prinivil) 10 mg DAILY PO Last administered on 07/20/19 10:45; Start 07/20/19 at 09:00 Fluticasone Propionate (Flonase) 2 spray DAILY NS Last administered on 07/20/19 10:43; Start 07/20/19 at 09:00 Hydrochlorothiazide (Hydrodiuril) 6.25 mg DAILY PO Last administered on 07/20/19at 10:45; Start 07/20/19 at 09:00 Cetirizine HCl (ZyrTEC) 10 mg DAILY PO Last administered on 07/20/19at 10:45; Start 07/20/19 at 09:00 Enoxaparin Sodium (Lovenox 40mg Syringe) 40 mg Q24H SQ Last administered on 07/20/19at 20:50; Start 07/19/19 at 22:00 Acetaminophen (Tylenol) 650 mg PRN Q6HRS PRN PO TEMP > 100.4F; Start 07/20/19 at 09:00 Acetaminophen (Tylenol Supp) 650 mg PRN Q4HRS PRN [place] TEMP > 100.4F; Start 07/20/19 at 09:00 Aspirin (Ecotrin) 325 mg DAILYWBKFT PO Last administered on 07/20/19at 10:46; Start 07/20/19 at 11:00; Stop 07/20/19 at 12:21; Status DC Aspirin (Aspirin Rectal Supp) 300 mg PRN DAILY PRN [place] IF UNABLE TO TAKE PO; Start 07/20/19 at 09:00 Aspirin (Ecotrin) 81 mg DAILYWBKFT PO ; Start 07/21/19 at 08:00 Active Scripts Active Atorvastatin Calcium 10 Mg Tablet 1 Tab PO QODAY Hydrochlorothiazide Capsule (Hydrochlorothiazide) 12.5 Mg Capsule 12.5 Mg PO DAILY 30 Days Reported Loratadine 10 Mg Tablet 10 Mg PO DAILY Enalapril Maleate 5 Mg Tablet 5 Mg PO DAILY Janumet 50-1,000 Mg Tablet (Sitagliptin Phos/Metformin Hcl) 1 Each Tablet 1 Tab PO BID Flonase Allergy Relief (Fluticasone Propionate) 9.9 Ml [place].susp 1 Sprays NS DAILY Lyrica (Pregabalin) 50 Mg Capsule 1 Cap PO BID Clopidogrel (Clopidogrel Bisulfate) 75 Mg Tablet 1 Tab PO DAILY Atenolol 100 Mg Tablet 1 Tab PO DAILY Tamsulosin Hcl 0.4 Mg Cap.er.24h 1 Cap PO QHS [Vitamin B 12 Inj.] 1,000 Mcg INJ QMONTH Citracal + D Maximum Caplet (Calcium Citrate/Vitamin D3) 1 Each Tablet 1 Each PO BID Aspir 81 (Aspirin) 81 Mg Tablet.dr 1 Tab PO DAILY Vitals/I & O Vital Sign - Last 24 Hours 07/20/19 07/20/19 07/20/19 07/20/19 10:45 10:46 10:58 15:25 Temp 98.1 98.5 98.1 98.5 Pulse 75 75 75 75 Resp 18 16 B/P (MAP) 161/74 161/74 161/74 (103) 118/64 (82) Pulse Ox 96 97 O2 Delivery Room Air Room Air 07/20/19 07/20/19 07/20/19 07/21/19 19:00 20:00 23:00 03:00 Temp 97.9 98.3 98.2 97.9 98.3 98.2 Pulse 70 76 73 Resp 18 18 18 B/P (MAP) 148/76 (100) 136/76 (96) 120/70 (87) Pulse Ox 98 96 95 O2 Delivery Room Air Room Air Room Air Room Air 07/21/19 07:45 O2 Delivery Room Air Intake and Output 07/20/19 07/20/19 07/21/19 15:00 23:00 07:00 Intake Total 240 ml 400 ml 500 ml Output Total 250 ml 700 ml Balance 240 ml 150 ml -200 ml ANA LUISA WELLER MD Jul 21, 2019 08:41
[2019-07-21] MEDS: LISINOPRIL 10 MG TABLET PO SCH (08:42)
[2019-07-21] MEDS: ATENOLOL 50 MG TABLET. PO SCH (08:43)
[2019-07-21] MEDS: CETIRIZINE HCL 10 MG TABLET. PO SCH (08:43)
[2019-07-21] MEDS: CALCIUM CARB/VIT D3 500/200 TABLET. PO SCH (08:44)
[2019-07-21] MEDS: PREGABALIN 50 MG CAPSULE PO SCH (08:44)
[2019-07-21] MEDS: hydroCHLOROthiazide 25 MG TABLET PO SCH (08:44)
[2019-07-21] MEDS: CLOPIDOGREL BISULFATE 75 MG TABLET PO SCH (08:44)
[2019-07-21 11:00] VITALS: BP 104/67
--- NOTE | 2019-07-21 11:30 | PDOC ---
PROGRESS NOTES Assessment Problems Medical Problems: (1) Syncope Status: Acute (2) TIA (transient ischemic attack) Status: Acute Transient ischemic attack, all workup negative Diabetic neuropathy Plan Home after echocardiogram Added aspirin 81 mg daily, but it turns out he is already on aspirin and clopidogrel; continue statin Follow-up with neurology as needed Subjective No complaints, no further episodes Objective Vital Signs Date Time Temp Pulse Resp B/P (MAP) Pulse Ox O2 Delivery O2 Flow Rate FiO2 07/21/19 08:43 83 142/69 07/21/19 07:45 Room Air 07/21/19 07:00 97.5 18 96 97.5 Intake and Output 07/21/19 06:59 Intake Total 1140 ml Output Total 950 ml Balance 190 ml Intake Oral 1140 ml Output Urine Total 950 ml PHYSICAL EXAM Alert. Oriented to time, place and person. PERRL. EOMI. CN: no focal findings. Muscle tone: normal. Muscle strength: 5/5 DTR: 1+ Plantar reflex: flexor Gait: arthritic, uses a walker here in the hospital. Sensory exam: Stocking loss. No cerebellar signs elicited. Review of Relevant I have reviewed the following items danny (where applicable) has been applied. Labs Laboratory Tests Test 07/19/19 15:30 07/19/19 18:15 07/19/19 21:12 07/19/19 21:30 White Blood Count 7.4 x10^3/uL (4.0-11.0) Red Blood Count 4.25 x10^6/uL (4.30-5.70) Hemoglobin 12.4 g/dL (13.0-17.5) Hematocrit 37.2 % (39.0-53.0) Mean Corpuscular Volume 87 fL (79-100) Mean Corpuscular Hemoglobin 29 pg (25-35) Mean Corpuscular Hemoglobin Concent 34 g/dL (31-37) Red Cell Distribution Width 14.4 % (11.5-14.5) Platelet Count 224 x10^3/uL (140-400) Neutrophils (%) (Auto) 68 % (31-73) Lymphocytes (%) (Auto) 23 % (24-48) Monocytes (%) (Auto) 7 % (0-9) Eosinophils (%) (Auto) 1 % (0-3) Basophils (%) (Auto) 0 % (0-3) Neutrophils # (Auto) 5.1 x10^3/uL (1.8-7.7) Lymphocytes # (Auto) 1.7 x10^3/uL (1.0-4.8) Monocytes # (Auto) 0.5 x10^3/uL (0.0-1.1) Eosinophils # (Auto) 0.1 x10^3/uL (0.0-0.7) Basophils # (Auto) 0.0 x10^3/uL (0.0-0.2) Prothrombin Time 13.7 SEC (11.7-14.0) Prothromb Time International Ratio 1.1 (0.8-1.1) Activated Partial Thromboplast Time 26 SEC (24-38) D-Dimer (Kandi) 0.62 ug/mlFEU (0.00-0.50) Sodium Level 140 mmol/L (136-145) Potassium Level 4.2 mmol/L (3.5-5.1) Chloride Level 103 mmol/L (98-107) Carbon Dioxide Level 26 mmol/L (21-32) Anion Gap 11 (6-14) Blood Urea Nitrogen 27 mg/dL (8-26) Creatinine 1.6 mg/dL (0.7-1.3) Estimated GFR (Cockcroft-Gault) 41.3 BUN/Creatinine Ratio 17 (6-20) Glucose Level 152 mg/dL (70-99) Calcium Level 9.6 mg/dL (8.5-10.1) Total Bilirubin 0.4 mg/dL (0.2-1.0) Aspartate Amino Transf (AST/SGOT) 18 U/L (15-37) Alanine Aminotransferase (ALT/SGPT) 15 U/L (16-63) Alkaline Phosphatase 44 U/L (46-116) Creatine Kinase 61 U/L (39-308) 55 U/L (39-308) 53 U/L (39-308) Creatine Kinase MB (Mass) 1.0 ng/mL (0.0-3.6) 0.9 ng/mL (0.0-3.6) 0.8 ng/mL (0.0-3.6) Creatine Kinase MB Relative Index % (0-4) % (0-4) % (0-4) Troponin I Quantitative < 0.017 ng/mL (0.000-0.055) < 0.017 ng/mL (0.000-0.055) < 0.017 ng/mL (0.000-0.055) Total Protein 7.5 g/dL (6.4-8.2) Albumin 3.5 g/dL (3.4-5.0) Albumin/Globulin Ratio 0.9 (1.0-1.7) Urine Collection Type Unknown Urine Color Yellow Urine Clarity Clear Urine pH 5.5 Urine Specific [place] >=1.030 Urine Protein Negative mg/dL (NEG-TRACE) Urine Glucose (UA) Negative mg/dL (NEG) Urine Ketones (Stick) Negative mg/dL (NEG) Urine Blood Negative (NEG) Urine Nitrite Negative (NEG) Urine Bilirubin Negative (NEG) Urine Urobilinogen Dipstick 0.2 mg/dL (0.2 mg/dL) Urine Leukocyte Esterase Negative (NEG) Urine RBC Rare /HPF (0-2) Urine WBC 0 /HPF (0-4) Urine Squamous Epithelial Cells Occ /LPF Urine Bacteria 0 /HPF (0-FEW) Urine Mucus Slight /LPF Test 07/19/19 21:33 07/20/19 04:00 07/20/19 07:37 07/20/19 17:34 Glucose (Fingerstick) 199 mg/dL (70-99) 100 mg/dL (70-99) 138 mg/dL (70-99) White Blood Count 4.9 x10^3/uL (4.0-11.0) Red Blood Count 3.66 x10^6/uL (4.30-5.70) Hemoglobin 10.9 g/dL (13.0-17.5) Hematocrit 31.6 % (39.0-53.0) Mean Corpuscular Volume 86 fL (79-100) Mean Corpuscular Hemoglobin 30 pg (25-35) Mean Corpuscular Hemoglobin Concent 34 g/dL (31-37) Red Cell Distribution Width 14.2 % (11.5-14.5) Platelet Count 188 x10^3/uL (140-400) Neutrophils (%) (Auto) 65 % (31-73) Lymphocytes (%) (Auto) 23 % (24-48) Monocytes (%) (Auto) 9 % (0-9) Eosinophils (%) (Auto) 2 % (0-3) Basophils (%) (Auto) 0 % (0-3) Neutrophils # (Auto) 3.2 x10^3/uL (1.8-7.7) Lymphocytes # (Auto) 1.1 x10^3/uL (1.0-4.8) Monocytes # (Auto) 0.5 x10^3/uL (0.0-1.1) Eosinophils # (Auto) 0.1 x10^3/uL (0.0-0.7) Basophils # (Auto) 0.0 x10^3/uL (0.0-0.2) Sodium Level 142 mmol/L (136-145) Potassium Level 3.8 mmol/L (3.5-5.1) Chloride Level 105 mmol/L (98-107) Carbon Dioxide Level 27 mmol/L (21-32) Anion Gap 10 (6-14) Blood Urea Nitrogen 30 mg/dL (8-26) Creatinine 1.3 mg/dL (0.7-1.3) Estimated GFR (Cockcroft-Gault) 52.5 Glucose Level 107 mg/dL (70-99) Calcium Level 9.0 mg/dL (8.5-10.1) Triglycerides Level 48 mg/dL (0-150) Cholesterol Level 121 mg/dL (0-200) LDL Cholesterol, Calculated 76 mg/dL (0-100) VLDL Cholesterol, Calculated 10 mg/dL (0-40) Non-HDL Cholesterol Calculated 86 mg/dL (0-129) HDL Cholesterol 35 mg/dL (40-60) Cholesterol/HDL Ratio 3.5 Test 07/20/19 20:51 Glucose (Fingerstick) 171 mg/dL (70-99) Laboratory Tests Test 07/20/19 17:34 07/20/19 20:51 Glucose (Fingerstick) 138 mg/dL (70-99) 171 mg/dL (70-99) Medications Current Medications Iohexol (Omnipaque 300 Mg/ml) 60 ml 1X ONCE IV Last administered on 07/19/19at 16:19; Start 07/19/19 at 16:30; Stop 07/19/19 at 16:31; Status DC Info (CONTRAST GIVEN -- Rx MONITORING) 1 each PRN DAILY PRN MC SEE COMMENTS; Start 07/19/19 at 16:15; Stop 07/21/19 at 16:14 Aspirin (Children'S Aspirin) 243 mg 1X ONCE PO Last administered on 07/19/19 17:22; Start 07/19/19 at 17:30; Stop 07/19/19 at 17:31; Status DC Ondansetron HCl (Zofran) 4 mg PRN Q8HRS PRN IV NAUSEA/VOMITING; Start 07/19/19 at 17:30; Stop 07/20/19 at 17:29; Status DC Aspirin (Ecotrin) 81 mg DAILY PO ; Start 07/20/19 at 09:00; Stop 07/20/19 at 08:52; Status DC Clopidogrel Bisulfate (Plavix) 75 mg DAILY PO Last administered on 07/21/19 08:44; Start 07/20/19 at 09:00 Pregabalin (Lyrica) 50 mg BID PO Last administered on 07/21/19 08:44; Start 07/19/19 at 21:00 Tamsulosin HCl (Flomax) 0.4 mg QHS PO Last administered on 07/20/19 20:49; Start 07/19/19 at 21:00 Atenolol (Tenormin) 100 mg DAILY PO Last administered on 07/21/19 08:43; Start 07/20/19 at 09:00 Calcium/Vitamin D (Oscal D 500mg/ 200uts) 1 tab BIDWMEALS PO Last administered on 07/21/19 08:44; Start 07/20/19 at 08:00 Lisinopril (Prinivil) 10 mg DAILY PO Last administered on 07/21/19 08:42; Start 07/20/19 at 09:00 Fluticasone Propionate (Flonase) 2 spray DAILY NS Last administered on 08:41; Start 07/20/19 at 09:00 Hydrochlorothiazide (Hydrodiuril) 6.25 mg DAILY PO Last administered on 07/21/19 08:44; Start 07/20/19 at 09:00 Cetirizine HCl (ZyrTEC) 10 mg DAILY PO Last administered on 07/21/19 08:43; Start 07/20/19 at 09:00 Enoxaparin Sodium (Lovenox 40mg Syringe) 40 mg Q24H SQ Last administered on 07/20/19at 20:50; Start 07/19/19 at 22:00 Acetaminophen (Tylenol) 650 mg PRN Q6HRS PRN PO TEMP > 100.4F Last administered on 07/21/19at 08:43; Start 07/20/19 at 09:00 Acetaminophen (Tylenol Supp) 650 mg PRN Q4HRS PRN [place] TEMP > 100.4F; Start 07/20/19 at 09:00 Aspirin (Ecotrin) 325 mg DAILYWBKFT PO Last administered on 07/20/19at 10:46; Start 07/20/19 at 11:00; Stop 07/20/19 at 12:21; Status DC Aspirin (Aspirin Rectal Supp) 300 mg PRN DAILY PRN [place] IF UNABLE TO TAKE PO; Start 07/20/19 at 09:00 Aspirin (Ecotrin) 81 mg DAILYWBKFT PO Last administered on 07/21/19at 08:43; Start 07/21/19 at 08:00 Active Scripts Active Atorvastatin Calcium 10 Mg Tablet 1 Tab PO QODAY Hydrochlorothiazide Capsule (Hydrochlorothiazide) 12.5 Mg Capsule 12.5 Mg PO DAILY 30 Days Reported Loratadine 10 Mg Tablet 10 Mg PO DAILY Enalapril Maleate 5 Mg Tablet 5 Mg PO DAILY Janumet 50-1,000 Mg Tablet (Sitagliptin Phos/Metformin Hcl) 1 Each Tablet 1 Tab PO BID Flonase Allergy Relief (Fluticasone Propionate) 9.9 Ml [place].susp 1 Sprays NS DAILY Lyrica (Pregabalin) 50 Mg Capsule 1 Cap PO BID Clopidogrel (Clopidogrel Bisulfate) 75 Mg Tablet 1 Tab PO DAILY Atenolol 100 Mg Tablet 1 Tab PO DAILY Tamsulosin Hcl 0.4 Mg Cap.er.24h 1 Cap PO QHS [Vitamin B 12 Inj.] 1,000 Mcg INJ QMONTH Citracal + D Maximum Caplet (Calcium Citrate/Vitamin D3) 1 Each Tablet 1 Each PO BID Aspir 81 (Aspirin) 81 Mg Tablet. 1 Tab PO DAILY Vitals/I & O Vital Sign - Last 24 Hours 07/20/19 07/20/19 07/20/19 07/20/19 15:25 19:00 20:00 23:00 Temp 98.5 97.9 98.3 98.5 97.9 98.3 Pulse 75 70 76 Resp 16 18 18 B/P (MAP) 118/64 (82) 148/76 (100) 136/76 (96) Pulse Ox 97 98 96 O2 Delivery Room Air Room Air Room Air Room Air 07/21/19 07/21/19 07/21/19 07/21/19 03:00 07:00 07:45 08:42 Temp 98.2 97.5 98.2 97.5 Pulse 73 82 79 Resp 18 18 B/P (MAP) 120/70 (87) 144/69 (94) 142/69 Pulse Ox 95 96 O2 Delivery Room Air Room Air Room Air 07/21/19 08:43 Pulse 83 B/P (MAP) 142/69 Intake and Output 07/20/19 07/20/19 07/21/19 14:59 22:59 06:59 Intake Total 240 ml 400 ml 500 ml Output Total 250 ml 700 ml Balance 240 ml 150 ml -200 ml MOLLY BURCH MD Jul 21, 2019 11:30
--- NOTE | 2019-07-21 13:00 | NUR ---
Discharge Note: OSWALDO HIGGINBOTHAM [address] [place] [address] Discharge instructions and discharge home medications reviewed with Patient and a copy given. All questions have been answered and understanding verbalized. The following instructions and handouts were given: discharge instructions, stroke info, hypoglycemia info, migraine info, syncope info. Discontinued lines and drains: Peripheral IV intact. Patient discharged to Home or Self Care with niece via Wheelchair at 1300.
--- NOTE | 2019-07-22 09:29 | CARD ---
MR#: [id number] Date of Study: 07/21/2019 Ordering Physician: MOLLY BURCH, Referring Physician: MOLLY BURCH, Tech: Betsey Carr APPROVED REPORT EXAM: Two-dimensional and M-mode echocardiogram with Doppler and color Doppler. Other Information Quality : GoodHR: 77bpm INDICATION Syncope 2D DIMENSIONS Left Atrium(2D)3.1 (1.6-4.0cm)IVSd1.2 (0.7-1.1cm) Aortic Root(2D)2.8 (2.0-3.7cm)LVDd4.0 (3.9-5.9cm) LVOT Diameter2.1 (1.8-2.4cm)PWd0.9 (0.7-1.1cm) LVDs2.4 (2.5-4.0cm)FS (%) 40.8 % SV51.5 mlLVEF(%)72.1 (>50%) Aortic Valve AoV Peak Zeeshan.114.1cm/sAoV VTI22.9cm AO Peak GR.5.2mmHgLVOT Peak Zeeshan.76.9cm/s LVOT VTI 19.68cmAO Mean GR.3mmHg CHELSY (VMAX)1.85ii0ZWJ (VTI)3.01cm2 Mitral Valve MV E Nzvynxlu46.2cm/sMV DECEL [id number] MV A Aojephdn22.3cm/sMV PST10yt E/A Ratio0.6MVA (PHT)2.50cm2 TDI E/Lateral E'7.2E/Medial E'11.7 Tricuspid Valve TR P. Hxfpodyw053bb/sRAP WIHYBFYU2pgVr TR Peak Gr.28yzPhUMNN12efYq Pulmonary Vein S1 Dcwzemhx71.6cm/sD2 Fjymwxjo45.5cm/s PVa uqvnqssr081bril LEFT VENTRICLE The left ventricle is normal size. There is borderline to mild concentric left ventricular hypertroph y. The left ventricular systolic function is normal and the ejection fraction is within normal range. The Ejection Fraction is >55%. There is normal LV segmental wall motion. Transmitral Doppler flow pa ttern is Grade I-abnormal relaxation pattern. RIGHT VENTRICLE The right ventricle is normal size. There is normal right ventricular wall thickness. The right ventr icular systolic function is normal. ATRIA The left atrium size is normal. The right atrium size is normal. The interatrial septum is intact wit h no evidence for an atrial septal defect or patent foramen ovale as noted on 2-D or Doppler imaging. AORTIC VALVE The aortic valve is calcified but opens well. Doppler and Color Flow revealed no significant aortic r egurgitation. There is no significant aortic valvular stenosis. MITRAL VALVE The mitral valve is thickened but opens well. Posterior leaflet restricted. There is no evidence of m itral valve prolapse. There is no mitral valve stenosis. Doppler and Color-flow revealed mild mitral regurgitation. TRICUSPID VALVE The tricuspid valve is normal in structure and function. Doppler and Color Flow revealed trace tricus pid regurgitation with an estimated PAP of 32 mmHg. There is no tricuspid valve prolapse or vegetatio n. There is no tricuspid valve stenosis. PULMONIC VALVE The pulmonic valve is not well visualized. Doppler and Color Flow revealed no pulmonic valvular regur gitation. There is no pulmonic valvular stenosis. GREAT VESSELS The aortic root is normal in size. The IVC is normal in size and collapses >50% with inspiration. PERICARDIAL EFFUSION There is no evidence of significant pericardial effusion. Critical Notification Critical Value: No <Conclusion> The left ventricular systolic function is normal and the ejection fraction is within normal range. Th e Ejection Fraction is >55%. There is normal LV segmental wall motion. Signed by : Terrance Louis, Electronically Approved : 07/22/2019 09:28:51
== END 2019-07-21 13:00 | disposition home or self-care (01) | DRG 69 ==
LOC: ER 15:11 → 2 SOUTH 17:27
PROVIDERS: ADMIT Family Medicine; ATTEND Family Medicine
DX: G45.9 Transient cerebral ischemic attack, unspecified (principal); E11.42 Type 2 diabetes mellitus with diabetic polyneuropathy; I12.9 Hypertensive chronic kidney disease with stage 1 through stage 4 chronic kidney disease, or unspecified chronic kidney disease; N18.3 Chronic kidney disease, stage 3 (moderate); D64.9 Anemia, unspecified; E11.22 Type 2 diabetes mellitus with diabetic chronic kidney disease; E11.51 Type 2 diabetes mellitus with diabetic peripheral angiopathy without gangrene; G43.909 Migraine, unspecified, not intractable, without status migrainosus; E78.5 Hyperlipidemia, unspecified; N40.0 Benign prostatic hyperplasia without lower urinary tract symptoms; Z79.02 Long term (current) use of antithrombotics/antiplatelets; Z82.49 Family history of ischemic heart disease and other diseases of the circulatory system; Z85.46 Personal history of malignant neoplasm of prostate; Z90.49 Acquired absence of other specified parts of digestive tract; Z98.49 Cataract extraction status, unspecified eye
CPT/HCPCS: 36415; 70450; 70496; 70498; 70551; 71046; 80048; 80053; 80061; 81001; 82553; 82962; 84484; 85025; 85379; 85610; 85730; 93005; 93306; 93880; 95816; J1650; Q9967; 92610; 97116; 99285-25; G0378

== ENCOUNTER 2020-09-28 15:09 | Observation (INO) | payer MEDICARE, BC ==
[~2020-09-28] VITALS: Ht 172.7 cm; Wt 62.7 kg
[~2020-09-28 15:09] MED LIST changes: +AMLO-187 PO; -AMLO10TA8 PO; +ENAL5TAB12 PO; +HYDR12.575 PO; +LORA10TA3 PO; -PREG50CA PO; +PREG50CA91 PO
[2020-09-28] MEDS ORDERED: ASPIRIN 325 MG TABLET PO ONE (15:45)
[2020-09-28 16:48] LABS: BASO % 0 % (0-3); EOS % 0 % (0-3); HEMATOCRIT 31.2 % (39.0-53.0); HEMOGLOBIN 10.9 g/dL (13.0-17.5); LYMPH # 0.7 x10^3/uL (1.0-4.8); LYMPH % 6 % (24-48); MEAN CORPUSCULAR HEMOGLOBIN 30 pg (25-35); MEAN CORPUSCULAR HGB CONC 35 g/dL (31-37); MEAN CORPUSCULAR VOLUME 85 fL (79-100); MONO # 0.7 x10^3/uL (0.0-1.1); MONO % 7 % (0-9); NEUT # 9.2 x10^3/uL (1.8-7.7); NEUT % 86 % (31-73); PLATELET COUNT 224 x10^3/uL (140-400); RED BLOOD COUNT 3.67 x10^6/uL (4.30-5.70); RED CELL DISTRIBUTION WIDTH 14.2 % (11.5-14.5); WHITE BLOOD COUNT 10.6 x10^3/uL (4.0-11.0)
[2020-09-28 17:01] LABS: CREATININE 1.2 mg/dL (0.7-1.3); GFR 57.4; POTASSIUM 4.3 mmol/L (3.5-5.1)
[2020-09-28 17:03] LABS: % BANDS 8 % (0-9); % LYMPHS 6 % (24-48); % MONOS 4 % (0-10); % SEGS 82 % (35-66); PLT ESTIMATE ADEQUATE (ADEQUATE); POIKILOCYTOSIS MOD
[2020-09-28 17:04] LABS: ALBUMIN 2.9 g/dL (3.4-5.0); ALBUMIN/GLOBULIN RATIO 0.7 (1.0-1.7); BIZZARE CELLS FEW; BURR CELLS FEW; MAGNESIUM 1.2 mg/dL (1.8-2.4); SCHISTOCYTES FEW; TOTAL BILIRUBIN 0.4 mg/dL (0.2-1.0); TOTAL PROTEIN 6.8 g/dL (6.4-8.2)
[2020-09-28 17:05] LABS: ACANTHOCYTES FEW
[2020-09-28] MEDS ORDERED: IOHEXOL 350 MG/ML 100 ML VIAL. IV ONE (17:15)
[2020-09-28] MEDS ORDERED: CONTRAST GIVEN. MC PRN (17:15)
--- NOTE | 2020-09-28 17:34 | ED.ADGEN ---
Past Medical History Past Medical History: Diabetes-Type II, Hypertension, Other Additional Past Medical Histor: PVD; enlarged prostate; allergies; prostate CA; neuropathy Past Surgical History: Cholecystectomy, Other Additional Past Surgical Histo: vascular sx in legs; prostate; hernia Smoking Status: Never Smoker Alcohol Use: None Drug Use: None General Adult EDM: Chief Complaint: NEURO SYMPTOMS/DEFICITS HPI: HPI: Patient is a 85 year old male coming in for left-sided facial droop. Noticed when he woke up this morning states it was not present when he went to bed the night before. Denies any other symptoms. Says he recent has been well without has similar episodes in the past. Patient states he originally had a little bit of dental pain and thought it was related to a tooth and went to his dentist, his dentist sent him to his primary care who sent him to the emergency department. Symptoms started 6 hours prior to arrival. Patient denies any paresthesias, upper or lower extremity weakness, hearing loss or tinnitus, denies any vision changes or difficulty seeing. Review of Systems: Review of Systems: Negative other than stated in HPI Current Medications: Current Medications Medications (Trade) Dose Ordered Sig/Sara Start Time Stop Time Status Last Admin Dose Admin Aspirin (Layne Aspirin) 325 mg 1X ONCE 09/28/20 15:45 09/28/20 15:50 DC 09/28/20 17:50 325 MG Info (CONTRAST GIVEN -- Rx MONITORING) 1 each PRN DAILY PRN 09/28/20 17:15 09/30/20 17:14 Iohexol (Omnipaque 350 Mg/ml) 75 ml 1X ONCE 09/28/20 17:15 09/28/20 17:16 DC 09/28/20 17:17 75 ML Allergies: Allergies: Allergies Coded Allergies Type Severity Reaction Last Updated Verified No Known Drug Allergies 12/26/17 No Physical Exam: PE: Constitutional: Well developed, well nourished, no acute distress, non-toxic appearance. [] HENT: Normocephalic, atraumatic, bilateral external ears normal, oropharynx moist, no oral exudates, nose normal. [] Eyes: PERRLA, EOMI, conjunctiva normal, no discharge. [] Neck: Normal range of motion, no tenderness, supple, no stridor. [] Cardiovascular:Heart rate regular rhythm, no murmur [] Lungs & Thorax: Bilateral breath sounds clear to auscultation [] Abdomen: Bowel sounds normal, soft, no tenderness, no masses, no pulsatile masses. [] Skin: Warm, dry, no erythema, no rash. [] Back: No tenderness, no CVA tenderness. [] Extremities: No tenderness, no cyanosis, no clubbing, ROM intact, no edema. [] Neurologic: Alert and oriented X 3, left-sided droop of mouth, eyebrows not involved, sensation intact, weakness with holding up legs which was symmetric. Normal coordination Psychologic: Affect normal, judgement normal, mood normal. [] Current Patient Data: Labs: Laboratory Tests Test 09/28/20 16:40 09/28/20 17:44 White Blood Count 10.6 x10^3/uL (4.0-11.0) Red Blood Count 3.67 x10^6/uL (4.30-5.70) L Hemoglobin 10.9 g/dL (13.0-17.5) L Hematocrit 31.2 % (39.0-53.0) L Mean Corpuscular Volume 85 fL (79-100) Mean Corpuscular Hemoglobin 30 pg (25-35) Mean Corpuscular Hemoglobin Concent 35 g/dL (31-37) Red Cell Distribution Width 14.2 % (11.5-14.5) Platelet Count 224 x10^3/uL (140-400) Neutrophils (%) (Auto) 86 % (31-73) H Lymphocytes (%) (Auto) 6 % (24-48) L Monocytes (%) (Auto) 7 % (0-9) Eosinophils (%) (Auto) 0 % (0-3) Basophils (%) (Auto) 0 % (0-3) Neutrophils # (Auto) 9.2 x10^3/uL (1.8-7.7) H Lymphocytes # (Auto) 0.7 x10^3/uL (1.0-4.8) L Monocytes # (Auto) 0.7 x10^3/uL (0.0-1.1) Eosinophils # (Auto) 0.0 x10^3/uL (0.0-0.7) Basophils # (Auto) 0.0 x10^3/uL (0.0-0.2) Segmented Neutrophils % 82 % (35-66) H Band Neutrophils % 8 % (0-9) Lymphocytes % 6 % (24-48) L Monocytes % 4 % (0-10) Platelet Estimate Adequate (ADEQUATE) Poikilocytosis Mod [place] Cells Few Acanthocytes (Spur Cells) Few Schistocytes Few RBC Morphology Bizarre Forms Few Sodium Level 132 mmol/L (136-145) L Potassium Level 4.3 mmol/L (3.5-5.1) Chloride Level 95 mmol/L (98-107) L Carbon Dioxide Level 28 mmol/L (21-32) Anion Gap 9 (6-14) Blood Urea Nitrogen 19 mg/dL (8-26) Creatinine 1.2 mg/dL (0.7-1.3) Estimated GFR (Cockcroft-Gault) 57.4 BUN/Creatinine Ratio 16 (6-20) Glucose Level 143 mg/dL (70-99) H Calcium Level 9.0 mg/dL (8.5-10.1) Magnesium Level 1.2 mg/dL (1.8-2.4) L Total Bilirubin 0.4 mg/dL (0.2-1.0) Aspartate Amino Transferase (AST) 18 U/L (15-37) Alanine Aminotransferase (ALT) 20 U/L (16-63) Alkaline Phosphatase 39 U/L (46-116) L Total Protein 6.8 g/dL (6.4-8.2) Albumin 2.9 g/dL (3.4-5.0) L Albumin/Globulin Ratio 0.7 (1.0-1.7) L Thyroid Stimulating Hormone (TSH) 1.298 uIU/mL (0.358-3.74) Urine Collection Type Unknown Urine Color Yellow Urine Clarity Clear Urine pH 6.0 (<5.0-8.0) Urine Specific [place] 1.015 (1.000-1.030) Urine Protein Negative mg/dL (NEG-TRACE) Urine Glucose (UA) Negative mg/dL (NEG) Urine Ketones (Stick) Negative mg/dL (NEG) Urine Blood Negative (NEG) Urine Nitrite Negative (NEG) Urine Bilirubin Negative (NEG) Urine Urobilinogen Dipstick 0.2 mg/dL (0.2 mg/dL) Urine Leukocyte Esterase Negative (NEG) Urine RBC Occ /HPF (0-2) Urine WBC Occ /HPF (0-4) Urine Squamous Epithelial Cells Few /LPF Urine Bacteria 0 /HPF (0-FEW) Laboratory Tests 09/28/20 16:40 Laboratory Tests 09/28/20 16:40 Vital Signs: Vital Signs Date Time Temp Pulse Resp B/P (MAP) Pulse Ox O2 Delivery O2 Flow Rate FiO2 09/28/20 16:56 84 156/87 (110) 97 Room Air 09/28/20 15:46 98.7 20 98.7 EKG: EKG: Sinus rhythm, left axis deviation, heart rate 187, no ST elevation or depression, no ectopy, normal intervals Heart Score: Risk Factors: Risk Factors: DM, Current or recent (<one month) smoker, HTN, HLP, family history of CAD, obesity. Risk Scores: Score 0 - 3: 2.5% MACE over next 6 weeks - Discharge Home Score 4 - 6: 20.3% MACE over next 6 weeks - Admit for Clinical Observation Score 7 - 10: 72.7% MACE over next 6 weeks - Early Invasive Strategies Radiology/Procedures: Radiology/Procedures: Exam: CT head. CTA head and neck INDICATION: Left facial droop TECHNIQUE: Sequential axial images through the head were obtained without the administration of IV contrast. Sequential axial images through the head and neck were obtained following the administration of 75 mL of Omni 350 Comparisons: None FINDINGS: Head: No focal parenchymal lesion or hemorrhage is identified. There is no midline shift or sulcal effacement. Patchy hypodensity in the periventricular white matter bilaterally. No acute vascular territory infarction is identified. Ramires-white distinction is preserved. The ventricular system is within normal limits without compression hydrocephalus. The basal cisterns are well maintained. The visualized portions of the paranasal sinuses and mastoid air cells are well- pneumatized. No acute fractures. CTA NECK: Visualized portions of the thoracic aorta are unremarkable. There is a two- vessel or arch configuration with common origin of the brachycephalic and left common carotid artery. Right common carotid artery is patent without evidence of stenosis, occlusion or aneurysm. Mild plaque is noted at the origin of the right internal carotid artery without significant stenosis. Left common carotid artery is patent without evidence of stenosis, occlusion or aneurysm. Mild plaque at origin of the left internal carotid artery without significant stenosis. Right vertebral artery is patent to the basilar confluence without evidence of stenosis, occlusion or aneurysm. Left vertebral artery is patent to basilar confluence without evidence of stenosis, Visualized paraspinal soft tissues are unremarkable. CTA head: Calcified plaque at the cavernous segment of the right internal carotid artery without significant stenosis. Right MCA is patent. Right MARIETTA is patent. Calcified plaque at the cavernous segment of the left internal carotid artery without significant stenosis. Left MCA is patent. Left MARIETTA is patent. Basilar artery is patent without evidence of stenosis, occlusion or aneurysm. senior health physics technician are patent bilaterally. IMPRESSION: 1. Moderate small vessel ischemic change, technically age indeterminate without recent prior imaging. 2. Mild calcified plaque at the cavernous segments of the internal carotid arteries bilaterally without stenosis stenosis. 3. Mild plaque at the origin of the internal carotid arteries bilaterally without significant stenosis. [] Course & Med Decision Making: Course & Med Decision Making Pertinent Labs and Imaging studies reviewed. (See chart for details) [] Dragon Disclaimer: Dragon Disclaimer: This electronic medical record was generated, in whole or in part, using a voice recognition dictation system. Departure Departure Impression: Primary Impression: CVA (cerebral vascular accident) Disposition: 09 ADMITTED INPT THIS HOSP Admitting Physician: JANNY Referrals: ANA LUISA WELLER MD (PCP) NADEEN HORTA MD Sep 28, 2020 17:33
--- NOTE | 2020-09-28 17:47 | EKG ---
[facility] [address] [place] [address] Test Date: 2020-09-28 Test Time: 15:54:08 Pat Name: OSWALDO HIGGINBOTHAM Department: Room: Gender: M Watch Assembly Inspector: : 1935 Requested By: NADEEN HORTA Order Number: [id number] Reading MD: Measurements Intervals [place] Rate: 87 P: 42 NE: 160 QRS: 0 QRSD: 74 T: 23 QT: 332 QTc: 405 Interpretive Statements SINUS RHYTHM LEFTWARD AXIS OTHERWISE NORMAL ECG RI6.01 No previous ECG available for comparison
[2020-09-28 17:54] LABS: BILIRUBIN,URINE NEGATIVE (NEG); CLARITY,URINE CLEAR; COLOR,URINE YELLOW; NITRITE,URINE NEGATIVE (NEG); PROTEIN,URINE NEGATIVE (NEG-TRACE); UROBILINOGEN,URINE 0.2 mg/dL (0.2 mg/dL)
--- NOTE | 2020-09-28 18:02 | RAD ---
Exam: CT head. CTA head and neck INDICATION: Left facial droop TECHNIQUE: Sequential axial images through the head were obtained without the administration of IV co ntrast. Sequential axial images through the head and neck were obtained following the administration of 75 mL of Omni 350 Comparisons: None FINDINGS: Head: No focal parenchymal lesion or hemorrhage is identified. There is no midline shift or sulcal effaceme nt. Patchy hypodensity in the periventricular white matter bilaterally. No acute vascular territory infar ction is identified. Ramires-white distinction is preserved. The ventricular system is within normal limits without compression hydrocephalus. The basal cisterns are well maintained. The visualized portions of the paranasal sinuses and mastoid air cells are well-pneumatized. No acute fractures. CTA NECK: Visualized portions of the thoracic aorta are unremarkable. There is a two-vessel or arch configurati on with common origin of the brachycephalic and left common carotid artery. Right common carotid artery is patent without evidence of stenosis, occlusion or aneurysm. Mild plaqu e is noted at the origin of the right internal carotid artery without significant stenosis. Left common carotid artery is patent without evidence of stenosis, occlusion or aneurysm. Mild plaque at origin of the left internal carotid artery without significant stenosis. Right vertebral artery is patent to the basilar confluence without evidence of stenosis, occlusion or aneurysm. Left vertebral artery is patent to basilar confluence without evidence of stenosis, Visualized paraspinal soft tissues are unremarkable. CTA head: Calcified plaque at the cavernous segment of the right internal carotid artery without significant st enosis. Right MCA is patent. Right MARIETTA is patent. Calcified plaque at the cavernous segment of the left internal carotid artery without significant guilherme nosis. Left MCA is patent. Left MARIETTA is patent. Basilar artery is patent without evidence of stenosis, occlusion or aneurysm. electronic publications specialist are patent bilater ally. IMPRESSION: 1. Moderate small vessel ischemic change, technically age indeterminate without recent prior imaging . 2. Mild calcified plaque at the cavernous segments of the internal carotid arteries bilaterally with out stenosis stenosis. 3. Mild plaque at the origin of the internal carotid arteries bilaterally without significant stenos is. Exposure: One or more of the following in the visualized dose reduction techniques were utilized for this examination: 1. Automated exposure control 2. Adjustment of the MA and/or KV according to patient size Use of iterative of reconstructive technique Electronically signed by: Anatoliy Dover MD (09/28/2020 6:00 PM) [facility]
[2020-09-28 18:15] LABS: BACTERIA,URINE 0 /HPF (0-FEW); RBC,URINE OCC /HPF (0-2); WBC,URINE OCC /HPF (0-4)
[2020-09-28] MEDS ORDERED: ONDANSETRON PF 4 MG/2 ML VIAL. IVP PRN (18:30)
[2020-09-28] MEDS ORDERED: ACETAMINOPHEN 325 MG TABLET. PO PRN ×2 (18:30)
[2020-09-28] MEDS ORDERED: ENOXAPARIN 40 MG/0.4 ML SYRINGE. SQ SCH (18:30)
[2020-09-28] MEDS ORDERED: LABETALOL 20 MG/4 ML DISP.SYRIN. IVP PRN ×2 (18:30)
[2020-09-28] MEDS ORDERED: MAGNESIUM HYDROXIDE 2,400 MG/30 ML ORAL.SUSP. PO PRN (18:30)
[2020-09-28] MEDS ORDERED: MORPHINE SULFATE 2 MG/ML VIAL. IV PRN (18:30)
[2020-09-28] MEDS ORDERED: HYDROmorphone 2 MG/ML VIAL IV PRN (18:30)
[2020-09-28] MEDS ORDERED: BISACODYL 10 MG SUPP.RECT. PR PRN (18:30)
[2020-09-28] MEDS ORDERED: CALCIUM CARBONATE 500 MG TAB.CHEW PO PRN (18:30)
[2020-09-28] MEDS ORDERED: ONDANSETRON PF 4 MG/2 ML VIAL. IV PRN (18:30)
[2020-09-28] MEDS ORDERED: ZOLPIDEM 5 MG TABLET. PO PRN (18:30)
[2020-09-28] MEDS ORDERED: MAG HYDROX/ALUMINUM HYD/SIMETH 30 ML ORAL.SUSP PO PRN (18:30)
--- NOTE | 2020-09-28 18:43 | PDOC1 ---
History and Physical Date of Admission Date of Admission DATE: 09/28/20 TIME: 18:31 Identification/Chief Complaint Chief Complaint Left-sided facial droop Source Source: Chart review, Patient History of Present Illness History of Present Illness Patient is a 85-year-old male with past medical history of DM 2, who presents to the ER with complaints of left-sided facial droop that began this morning. Symptoms were not present when patient went to bed last night he denies any history of similar symptoms. He initially thought his symptoms related to dental pain, and was seen by his dentist who then referred him to the ED for further evaluation. He denies any associated numbness, tingling, or weakness weakness. CTA head and neck on admission showed mild plaque in the internal carotid arteries and small vessel ischemic changes, but negative for acute bleed. Upon review of patient's home medications he does verify that he takes aspirin and Plavix daily, but denies any history of CVA, HI, or cardiac stent placement. Will admit patient for further management. Past Medical History Cardiovascular: HTN, Hyperlipidemia, Other CENTRAL NERVOUS SYSTEM: Periperal neuropathy GI: Other Musculoskeletal: low back pain, Osteoarthritis Renal/: Prostate Ca., Other Endocrine: Diabetes Past Surgical History Past Surgical History: Cholecystectomy, Cataract Removal, Hernia Repair, Other Family History Family History: No Significant Social History Smoke: No ALCOHOL: none Drugs: None Current Problem List Problem List Problems Medical Problems: (1) CVA (cerebral vascular accident) Status: Acute Current Medications Current Medications Current Medications Aspirin (Layne Aspirin) 325 mg 1X ONCE PO Last administered on 09/28/20at 17:50; Start 09/28/20 at 15:45; Stop 09/28/20 at 15:50; Status DC Iohexol (Omnipaque 350 Mg/ml) 75 ml 1X ONCE IV Last administered on 09/28/20at 17:17; Start 09/28/20 at 17:15; Stop 09/28/20 at 17:16; Status DC Info (CONTRAST GIVEN -- Rx MONITORING) 1 each PRN DAILY PRN MC SEE COMMENTS; Start 09/28/20 at 17:15; Stop 09/30/20 at 17:14 Ondansetron HCl (Zofran) 4 mg PRN Q6HRS PRN IVP NAUSEA/VOMITING; Start 09/28/20 at 18:30 Al Hydroxide/Mg Hydroxide (Mylanta Plus Xs) 30 ml PRN Q3HRS PRN PO HEARTBURN / GAS; Start 09/28/20 at 18:30 Calcium Carbonate/ Glycine (Tums) 500 mg PRN Q3HRS PRN PO UPSET STOMACH; Start 09/28/20 at 18:30 Zolpidem Tartrate (Ambien) 5 mg PRN QHS PRN PO INSOMNIA, MAY REPEAT IN 1HR; Start 09/28/20 at 18:30 Morphine Sulfate (Morphine Sulfate) 2 mg PRN Q1HR PRN IV PAIN; Start 09/28/20 at 18:30 Hydromorphone HCl (Dilaudid) 0.4 mg PRN Q1HR PRN IV PAIN; Start 09/28/20 at 18:30 Acetaminophen (Tylenol) 650 mg PRN Q6HRS PRN PO Headaches, Temp > 101.5F; Start 09/28/20 at 18:30 Magnesium Hydroxide (Milk Of Magnesia) 2,400 mg PRN Q12HR PRN PO CONSTIPATION; Start 09/28/20 at 18:30 Bisacodyl (Dulcolax Supp) 10 mg PRN DAILY PRN NC CONSTIPATION; Start 09/28/20 at 18:30 Enoxaparin Sodium (Lovenox 40mg Syringe) 40 mg Q24H SQ ; Start 09/28/20 at 18:30 Labetalol HCl (Normodyne Iv Push) 20 mg PRN Q15MIN PRN IVP HYPERTENSION; Start 09/28/20 at 18:30 Ondansetron HCl (Zofran) 4 mg PRN Q8HRS PRN IV NAUSEA/VOMITING; Start 09/28/20 at 18:30; Stop 09/29/20 at 18:29 Fentanyl Citrate (Fentanyl 2ml Vial) 50 mcg PRN Q1HR PRN IV PAIN; Start 09/28/20 at 18:30; Stop 09/29/20 at 18:29 Acetaminophen (Tylenol) 650 mg PRN Q4HRS PRN PO FEVER > 100.3'F; Start 09/28/20 at 18:30; Stop 09/29/20 at 18:29 Active Scripts Active Atorvastatin Calcium 10 Mg Tablet 1 Tab PO QODAY Hydrochlorothiazide Capsule (Hydrochlorothiazide) 12.5 Mg Capsule 12.5 Mg PO DAILY 30 Days Reported Loratadine 10 Mg Tablet 10 Mg PO DAILY Enalapril Maleate 5 Mg Tablet 5 Mg PO DAILY Janumet 50-1,000 Mg Tablet (Sitagliptin Phos/Metformin Hcl) 1 Each Tablet 1 Tab PO BID Flonase Allergy Relief (Fluticasone Propionate) 9.9 Ml [place].susp 1 Sprays NS DAILY Lyrica (Pregabalin) 50 Mg Capsule 1 Cap PO BID Clopidogrel (Clopidogrel Bisulfate) 75 Mg Tablet 1 Tab PO DAILY Atenolol 100 Mg Tablet 1 Tab PO DAILY Tamsulosin Hcl 0.4 Mg Cap.er.24h 1 Cap PO QHS [Vitamin B 12 Inj.] 1,000 Mcg INJ QMONTH Citracal + D Maximum Caplet (Calcium Citrate/Vitamin D3) 1 Each Tablet 1 Each PO BID Aspir 81 (Aspirin) 81 Mg Tablet.dr 1 Tab PO DAILY Allergies Allergies: Coded Allergies: No Known Drug Allergies (Unverified , 12/26/17) ROS Review of System GENERAL: No history of weight change, weakness or fevers. SKIN: No bruising, hair changes or rashes. EYES: No blurred, double or loss of vision. NOSE AND THROAT: No history of nosebleeds, hoarseness or sore throat. HEART: Denies chest pain, denies palpitations. LUNGS: Denies cough, hemoptysis, wheezing or shortness of breath. GASTROINTESTINAL: Denies nausea, vomiting, abdominal pain. GENITOURINARY: Denies dysuria, frequency, urgency, hematuria. NEUROLOGIC: Left-sided facial droop. Denies history of numbness, tingling, tremor or weakness. PSYCHIATRIC: Denies anxiety, denies depression. ENDOCRINE: No history of heat or cold intolerance, polyuria or polydipsia. EXTREMITIES: Denies muscle weakness, joint pain, pain on walking or stiffness. Physical Exam Physical Exam General: Alert, Oriented X3, Cooperative, No acute distress HEENT: PERRLA, EOMI Lungs: Clear to auscultation, Normal air movement Heart: RRR, no murmurs Cardiovascular: S1, S2 Abdomen: Normal bowel sounds, Soft, No tenderness Extremities: No clubbing, No cyanosis Skin: No rashes, No significant lesion Neuro: Left-sided facial droop, sparing left forehead. Normal speech, Normal tone, Sensation intact Psych/Mental Status: Mental status NL, Mood NL Vitals Vitals Vital Signs Date Time Temp Pulse Resp B/P (MAP) Pulse Ox O2 Delivery O2 Flow Rate FiO2 09/28/20 16:56 84 156/87 (110) 97 Room Air 09/28/20 15:46 98.7 20 98.7 Labs Labs Laboratory Tests Test 09/28/20 16:40 09/28/20 17:44 White Blood Count 10.6 x10^3/uL (4.0-11.0) Red Blood Count 3.67 x10^6/uL (4.30-5.70) Hemoglobin 10.9 g/dL (13.0-17.5) Hematocrit 31.2 % (39.0-53.0) Mean Corpuscular Volume 85 fL (79-100) Mean Corpuscular Hemoglobin 30 pg (25-35) Mean Corpuscular Hemoglobin Concent 35 g/dL (31-37) Red Cell Distribution Width 14.2 % (11.5-14.5) Platelet Count 224 x10^3/uL (140-400) Neutrophils (%) (Auto) 86 % (31-73) Lymphocytes (%) (Auto) 6 % (24-48) Monocytes (%) (Auto) 7 % (0-9) Eosinophils (%) (Auto) 0 % (0-3) Basophils (%) (Auto) 0 % (0-3) Neutrophils # (Auto) 9.2 x10^3/uL (1.8-7.7) Lymphocytes # (Auto) 0.7 x10^3/uL (1.0-4.8) Monocytes # (Auto) 0.7 x10^3/uL (0.0-1.1) Eosinophils # (Auto) 0.0 x10^3/uL (0.0-0.7) Basophils # (Auto) 0.0 x10^3/uL (0.0-0.2) Segmented Neutrophils % 82 % (35-66) Band Neutrophils % 8 % (0-9) Lymphocytes % 6 % (24-48) Monocytes % 4 % (0-10) Platelet Estimate Adequate (ADEQUATE) Poikilocytosis Mod Analisa Cells Few Acanthocytes Few Schistocytes Few RBC Morphology Bizarre Forms Few Sodium Level 132 mmol/L (136-145) Potassium Level 4.3 mmol/L (3.5-5.1) Chloride Level 95 mmol/L (98-107) Carbon Dioxide Level 28 mmol/L (21-32) Anion Gap 9 (6-14) Blood Urea Nitrogen 19 mg/dL (8-26) Creatinine 1.2 mg/dL (0.7-1.3) Estimated GFR (Cockcroft-Gault) 57.4 BUN/Creatinine Ratio 16 (6-20) Glucose Level 143 mg/dL (70-99) Calcium Level 9.0 mg/dL (8.5-10.1) Magnesium Level 1.2 mg/dL (1.8-2.4) Total Bilirubin 0.4 mg/dL (0.2-1.0) Aspartate Amino Transf (AST/SGOT) 18 U/L (15-37) Alanine Aminotransferase (ALT/SGPT) 20 U/L (16-63) Alkaline Phosphatase 39 U/L (46-116) Total Protein 6.8 g/dL (6.4-8.2) Albumin 2.9 g/dL (3.4-5.0) Albumin/Globulin Ratio 0.7 (1.0-1.7) Thyroid Stimulating Hormone (TSH) 1.298 uIU/mL (0.358-3.74) Urine Collection Type Unknown Urine Color Yellow Urine Clarity Clear Urine pH 6.0 (<5.0-8.0) Urine Specific [place] 1.015 (1.000-1.030) Urine Protein Negative mg/dL (NEG-TRACE) Urine Glucose (UA) Negative mg/dL (NEG) Urine Ketones (Stick) Negative mg/dL (NEG) Urine Blood Negative (NEG) Urine Nitrite Negative (NEG) Urine Bilirubin Negative (NEG) Urine Urobilinogen Dipstick 0.2 mg/dL (0.2 mg/dL) Urine Leukocyte Esterase Negative (NEG) Urine RBC Occ /HPF (0-2) Urine WBC Occ /HPF (0-4) Urine Squamous Epithelial Cells Few /LPF Urine Bacteria 0 /HPF (0-FEW) Laboratory Tests Test 09/28/20 16:40 09/28/20 17:44 White Blood Count 10.6 x10^3/uL (4.0-11.0) Red Blood Count 3.67 x10^6/uL (4.30-5.70) Hemoglobin 10.9 g/dL (13.0-17.5) Hematocrit 31.2 % (39.0-53.0) Mean Corpuscular Volume 85 fL (79-100) Mean Corpuscular Hemoglobin 30 pg (25-35) Mean Corpuscular Hemoglobin Concent 35 g/dL (31-37) Red Cell Distribution Width 14.2 % (11.5-14.5) Platelet Count 224 x10^3/uL (140-400) Neutrophils (%) (Auto) 86 % (31-73) Lymphocytes (%) (Auto) 6 % (24-48) Monocytes (%) (Auto) 7 % (0-9) Eosinophils (%) (Auto) 0 % (0-3) Basophils (%) (Auto) 0 % (0-3) Neutrophils # (Auto) 9.2 x10^3/uL (1.8-7.7) Lymphocytes # (Auto) 0.7 x10^3/uL (1.0-4.8) Monocytes # (Auto) 0.7 x10^3/uL (0.0-1.1) Eosinophils # (Auto) 0.0 x10^3/uL (0.0-0.7) Basophils # (Auto) 0.0 x10^3/uL (0.0-0.2) Segmented Neutrophils % 82 % (35-66) Band Neutrophils % 8 % (0-9) Lymphocytes % 6 % (24-48) Monocytes % 4 % (0-10) Platelet Estimate Adequate (ADEQUATE) Poikilocytosis Mod [place] Cells Few Acanthocytes Few Schistocytes Few RBC Morphology Bizarre Forms Few Sodium Level 132 mmol/L (136-145) Potassium Level 4.3 mmol/L (3.5-5.1) Chloride Level 95 mmol/L (98-107) Carbon Dioxide Level 28 mmol/L (21-32) Anion Gap 9 (6-14) Blood Urea Nitrogen 19 mg/dL (8-26) Creatinine 1.2 mg/dL (0.7-1.3) Estimated GFR (Cockcroft-Gault) 57.4 BUN/Creatinine Ratio 16 (6-20) Glucose Level 143 mg/dL (70-99) Calcium Level 9.0 mg/dL (8.5-10.1) Magnesium Level 1.2 mg/dL (1.8-2.4) Total Bilirubin 0.4 mg/dL (0.2-1.0) Aspartate Amino Transf (AST/SGOT) 18 U/L (15-37) Alanine Aminotransferase (ALT/SGPT) 20 U/L (16-63) Alkaline Phosphatase 39 U/L (46-116) Total Protein 6.8 g/dL (6.4-8.2) Albumin 2.9 g/dL (3.4-5.0) Albumin/Globulin Ratio 0.7 (1.0-1.7) Thyroid Stimulating Hormone (TSH) 1.298 uIU/mL (0.358-3.74) Urine Collection Type Unknown Urine Color Yellow Urine Clarity Clear Urine pH 6.0 (<5.0-8.0) Urine Specific [place] 1.015 (1.000-1.030) Urine Protein Negative mg/dL (NEG-TRACE) Urine Glucose (UA) Negative mg/dL (NEG) Urine Ketones (Stick) Negative mg/dL (NEG) Urine Blood Negative (NEG) Urine Nitrite Negative (NEG) Urine Bilirubin Negative (NEG) Urine Urobilinogen Dipstick 0.2 mg/dL (0.2 mg/dL) Urine Leukocyte Esterase Negative (NEG) Urine RBC Occ /HPF (0-2) Urine WBC Occ /HPF (0-4) Urine Squamous Epithelial Cells Few /LPF Urine Bacteria 0 /HPF (0-FEW) Images Images Exam: CT head. CTA head and neck INDICATION: Left facial droop TECHNIQUE: Sequential axial images through the head were obtained without the administration of IV contrast. Sequential axial images through the head and neck were obtained following the administration of 75 mL of Omni 350 Comparisons: None FINDINGS: Head: No focal parenchymal lesion or hemorrhage is identified. There is no midline shift or sulcal effacement. Patchy hypodensity in the periventricular white matter bilaterally. No acute vascular territory infarction is identified. Ramires-white distinction is preserved. The ventricular system is within normal limits without compression hydrocephalus. The basal cisterns are well maintained. The visualized portions of the paranasal sinuses and mastoid air cells are well- pneumatized. No acute fractures. CTA NECK: Visualized portions of the thoracic aorta are unremarkable. There is a two- vessel or arch configuration with common origin of the brachycephalic and left common carotid artery. Right common carotid artery is patent without evidence of stenosis, occlusion or aneurysm. Mild plaque is noted at the origin of the right internal carotid artery without significant stenosis. Left common carotid artery is patent without evidence of stenosis, occlusion or aneurysm. Mild plaque at origin of the left internal carotid artery without significant stenosis. Right vertebral artery is patent to the basilar confluence without evidence of stenosis, occlusion or aneurysm. Left vertebral artery is patent to basilar confluence without evidence of stenosis, Visualized paraspinal soft tissues are unremarkable. CTA head: Calcified plaque at the cavernous segment of the right internal carotid artery without significant stenosis. Right MCA is patent. Right [place] is patent. Calcified plaque at the cavernous segment of the left internal carotid artery without significant stenosis. Left MCA is patent. Left [place] is patent. Basilar artery is patent without evidence of stenosis, occlusion or aneurysm. fig washer are patent bilaterally. IMPRESSION: 1. Moderate small vessel ischemic change, technically age indeterminate without recent prior imaging. 2. Mild calcified plaque at the cavernous segments of the internal carotid arteries bilaterally without stenosis stenosis. 3. Mild plaque at the origin of the internal carotid arteries bilaterally without significant stenosis. VTE Prophylaxis Ordered VTE Prophylaxis Devices: No VTE Pharmacological Prophylaxi: Yes Assessment/Plan Assessment/Plan CVA Hyponatremia Hypomagnesemia DM2 Malnutrition Plan: Admit patient for observation and consult to neurology Unsure if this represents failure of aspirin and Plavix, but patient is able to provide a list of some medications showing both. Morning lipid panel pending Permissive hypertension over the next 24 hours, IV labetalol as needed systolic blood pressure greater >200 Resume home medications FEN -NPO barring bedside swallow eval; then cardiac diet PPX - Lovenox FULL CODE Dispo - observation for above Justifications for Admission Other Justification CVA RAUDEL SYLVESTER MD Sep 28, 2020 18:43
[2020-09-28] MEDS ORDERED: DEXTROSE 50% 25 GM / 50ML DISP.SYRIN. IV PRN (18:45)
[2020-09-28 19:30] VITALS: BP 152/75
[2020-09-28] MEDS ORDERED: ATOR10TA60 PO (19:58)
[2020-09-28 23:00] VITALS: BP 157/92
[2020-09-28] MEDS: fentaNYL PF VIAL 100 MCG/2 ML VIAL IV PRN (23:25)
--- NOTE | 2020-09-28 23:31 | NUR ---
Patient arrived to unit accompanied by ED RN. Patient has no complaints of pain at this time, resting comfortably on RA. Patient states that he lives at home alone, his sister was living with him but on Saturday (09/24). States that he has been extremely stressed. His niece Marlena comes over to check on him daily. Marlena is his DPOA [phone]. NIH completed with ED nurse at bedside- NIH 3. ER nurse reported that NIH in ER was also a 3. Pt received Lovenox and ASA in ER. Pt remains NPO until speech therapy can complete a bed side swallow study. Dr. Coronado notified of admission-no orders at this time. Bed in low locked position, call light in reach. will continue to monitor.
[2020-09-29 03:00] VITALS: BP 155/97
[2020-09-29] MEDS: fentaNYL PF VIAL 100 MCG/2 ML VIAL IV PRN (03:20)
[2020-09-29 07:00] VITALS: BP 173/92
--- NOTE | 2020-09-29 07:22 | PDOC ---
[facility] [facility] PROGRESS NOTE Date of Service DOS: DATE: 09/29/20 TIME: 07:13 Chief Complaint Chief Complaint A/P: Left Facial droop - no other CVA symptoms, no focal weakness. Seems to be bells palsy Left dental caries - augmentin Hyponatremia - likely hypovolemic from poor PO intake Hypomagnesemia - will replace, possible etiology of neuro changes DM2 Malnutrition Prostate ca - in remission Anemia - likely of chronic disease, will check iron and B12 Plan: Consult to neurology Unsure if this represents failure of aspirin and Plavix, but patient is able to provide a list of some medications showing both. Morning lipid panel pending Permissive hypertension over the next 24 hours, IV labetalol as needed systolic blood pressure greater >200 Resume home medications FEN - Cardiac diet PPX - Lovenox FULL CODE Dispo - observation for above History of Present Illness History of Present Illness Mr High is an 85-year-old male with past medical history of DM 2 with neuropathy, HTN, HLD, prostate cancer who presented to the ED 09/28/2020 with complaints of left-sided facial droop that began in the morning. Symptoms were not present when patient went to bed on 09/27/2020 at night. He denies any history of similar symptoms. He initially thought his symptoms related to dental pain, and was seen by his dentist who then referred him to the ED for further evaluation. He denies any associated numbness, tingling, or weakness weakness. CTA head and neck on admission showed mild plaque in the internal carotid arteries and small vessel ischemic changes, but negative for acute bleed. Upon review of patient's home medications he does verify that he takes aspirin and Plavix daily, but denies any history of CVA, HI, or cardiac stent placement. EKG NSR with left axis deviation, no T-segment or T wave changes. Labs significant for WBC 10.6, Hb 10.9, platelets 221, NA 132, K4.3, BUN 19, CR 1.2, glucose 143, albumin 2.9, TSH 1.298, magnesium 1.2. Admitted patient for further management. Seen bedside with his significant other and sister and he notes that he is also had some left otalgia and was planning on having a left frontal second incisor removed at the dental clinic visit abscess was given a prescription for amoxicillin but did not fill it. Plan: To MRI Likely bells palsy, ok for d/c home on augmentin for dental abscess, possibly low dose steroids, will d/w neurology Vitals/I&O Vitals/I&O: Vital Signs Date Time Temp Pulse Resp B/P (MAP) Pulse Ox O2 Delivery O2 Flow Rate FiO2 09/29/20 03:50 16 98 Room Air 09/29/20 03:00 98.8 92 155/97 (116) 98.8 I & O 09/28/20 09/28/20 09/29/20 15:00 23:00 07:00 Output Total 350 ml 600 ml Balance -350 ml -600 ml Physical Exam General: Alert, Cooperative Heart: Regular rate, Normal S1, Normal S2 Lungs: Clear Abdomen: Normal bowel sounds, Soft Extremities: No clubbing, No cyanosis Skin: No rashes, No breakdown Labs Labs: Laboratory Tests Test 09/28/20 16:40 09/28/20 17:44 White Blood Count 10.6 x10^3/uL (4.0-11.0) Red Blood Count 3.67 x10^6/uL (4.30-5.70) Hemoglobin 10.9 g/dL (13.0-17.5) Hematocrit 31.2 % (39.0-53.0) Mean Corpuscular Volume 85 fL (79-100) Mean Corpuscular Hemoglobin 30 pg (25-35) Mean Corpuscular Hemoglobin Concent 35 g/dL (31-37) Red Cell Distribution Width 14.2 % (11.5-14.5) Platelet Count 224 x10^3/uL (140-400) Neutrophils (%) (Auto) 86 % (31-73) Lymphocytes (%) (Auto) 6 % (24-48) Monocytes (%) (Auto) 7 % (0-9) Eosinophils (%) (Auto) 0 % (0-3) Basophils (%) (Auto) 0 % (0-3) Neutrophils # (Auto) 9.2 x10^3/uL (1.8-7.7) Lymphocytes # (Auto) 0.7 x10^3/uL (1.0-4.8) Monocytes # (Auto) 0.7 x10^3/uL (0.0-1.1) Eosinophils # (Auto) 0.0 x10^3/uL (0.0-0.7) Basophils # (Auto) 0.0 x10^3/uL (0.0-0.2) Segmented Neutrophils % 82 % (35-66) Band Neutrophils % 8 % (0-9) Lymphocytes % 6 % (24-48) Monocytes % 4 % (0-10) Platelet Estimate Adequate (ADEQUATE) Poikilocytosis Mod [place] Cells Few Acanthocytes Few Schistocytes Few RBC Morphology Bizarre Forms Few Sodium Level 132 mmol/L (136-145) Potassium Level 4.3 mmol/L (3.5-5.1) Chloride Level 95 mmol/L (98-107) Carbon Dioxide Level 28 mmol/L (21-32) Anion Gap 9 (6-14) Blood Urea Nitrogen 19 mg/dL (8-26) Creatinine 1.2 mg/dL (0.7-1.3) Estimated GFR (Cockcroft-Gault) 57.4 BUN/Creatinine Ratio 16 (6-20) Glucose Level 143 mg/dL (70-99) Calcium Level 9.0 mg/dL (8.5-10.1) Magnesium Level 1.2 mg/dL (1.8-2.4) Total Bilirubin 0.4 mg/dL (0.2-1.0) Aspartate Amino Transf (AST/SGOT) 18 U/L (15-37) Alanine Aminotransferase (ALT/SGPT) 20 U/L (16-63) Alkaline Phosphatase 39 U/L (46-116) Total Protein 6.8 g/dL (6.4-8.2) Albumin 2.9 g/dL (3.4-5.0) Albumin/Globulin Ratio 0.7 (1.0-1.7) Thyroid Stimulating Hormone (TSH) 1.298 uIU/mL (0.358-3.74) Urine Collection Type Unknown Urine Color Yellow Urine Clarity Clear Urine pH 6.0 (<5.0-8.0) Urine Specific [place] 1.015 (1.000-1.030) Urine Protein Negative mg/dL (NEG-TRACE) Urine Glucose (UA) Negative mg/dL (NEG) Urine Ketones (Stick) Negative mg/dL (NEG) Urine Blood Negative (NEG) Urine Nitrite Negative (NEG) Urine Bilirubin Negative (NEG) Urine Urobilinogen Dipstick 0.2 mg/dL (0.2 mg/dL) Urine Leukocyte Esterase Negative (NEG) Urine RBC Occ /HPF (0-2) Urine WBC Occ /HPF (0-4) Urine Squamous Epithelial Cells Few /LPF Urine Bacteria 0 /HPF (0-FEW) Assessment and Plan Assessmemt and Plan Problems Medical Problems: (1) CVA (cerebral vascular accident) Status: Acute Comment Review of Relevant I have reviewed the following items danny (where applicable) has been applied. Medications: Current Medications Medications (Trade) Dose Ordered Sig/Sara Route PRN Reason Start Time Stop Time Status Last Admin Dose Admin Aspirin (Layne Aspirin) 325 mg 1X ONCE PO 09/28/20 15:45 09/28/20 15:50 DC 09/28/20 17:50 Iohexol (Omnipaque 350 Mg/ml) 75 ml 1X ONCE IV 09/28/20 17:15 09/28/20 17:16 DC 09/28/20 17:17 Enoxaparin Sodium (Lovenox 40mg Syringe) 40 mg Q24H SQ 09/28/20 18:30 09/28/20 18:58 Fentanyl Citrate (Fentanyl 2ml Vial) 50 mcg PRN Q1HR PRN IV PAIN 09/28/20 18:30 09/29/20 18:29 09/29/20 03:20 Justifications for Admission Other Justification CVA JOCELYNE REYNOLDS MD Sep 29, 2020 07:22
[2020-09-29 07:32] LABS: BASO % 0 % (0-3); EOS # 0.1 x10^3/uL (0.0-0.7); EOS % 1 % (0-3); HEMATOCRIT 31.1 % (39.0-53.0); HEMOGLOBIN 10.7 g/dL (13.0-17.5); LYMPH # 0.8 x10^3/uL (1.0-4.8); LYMPH % 9 % (24-48); MEAN CORPUSCULAR HEMOGLOBIN 29 pg (25-35); MEAN CORPUSCULAR HGB CONC 35 g/dL (31-37); MEAN CORPUSCULAR VOLUME 85 fL (79-100); MONO # 0.7 x10^3/uL (0.0-1.1); MONO % 9 % (0-9); NEUT % 81 % (31-73); PLATELET COUNT 220 x10^3/uL (140-400); RED BLOOD COUNT 3.67 x10^6/uL (4.30-5.70); RED CELL DISTRIBUTION WIDTH 14.4 % (11.5-14.5); WHITE BLOOD COUNT 8.6 x10^3/uL (4.0-11.0)
[2020-09-29 07:42] LABS: CREATININE 1.4 mg/dL (0.7-1.3); GFR 48.1; POTASSIUM 4.1 mmol/L (3.5-5.1)
[2020-09-29 07:53] LABS: CHOLESTEROL/HDL RATIO 2.5
[2020-09-29] MEDS: INSULIN LISPRO 300 UNITS/3 ML VIAL. SQ SCH ×2 (08:00→12:39)
[2020-09-29] MEDS ORDERED: MAGNESIUM SULFATE 4GM 100 ML IV ONE (08:00)
[2020-09-29] MEDS ORDERED: PREGABALIN 50 MG CAPSULE PO SCH (09:00)
[2020-09-29] MEDS ORDERED: ATENOLOL 50 MG TABLET. PO SCH (09:00)
[2020-09-29] MEDS ORDERED: CLOPIDOGREL BISULFATE 75 MG TABLET PO SCH (09:00)
[2020-09-29] MEDS ORDERED: LISINOPRIL 10 MG TABLET PO SCH (09:00)
[2020-09-29] MEDS ORDERED: ATORVASTATIN CALCIUM 10 MG TABLET. PO SCH (09:00)
[2020-09-29] MEDS ORDERED: LINAGLIPTIN 5 MG TABLET PO SCH (09:00)
[2020-09-29] MEDS ORDERED: FLUTICASONE 50MCG/NASAL SPRAY 16GM BOTTLE. NS SCH (09:00)
[2020-09-29] MEDS ORDERED: CALCIUM CARB/VIT D3 500/200 TABLET. PO SCH (09:00)
[2020-09-29] MEDS ORDERED: CETIRIZINE HCL 10 MG TABLET. PO SCH (09:00)
[2020-09-29] MEDS ORDERED: ACETAMINOPHEN 325 MG TABLET. PO PRN (09:30)
[2020-09-29] MEDS ORDERED: ASPIRIN RECTAL 300 MG SUPP. PR PRN (09:30)
[2020-09-29] MEDS ORDERED: ASPIRIN ENTERIC COATED 325 MG TABLET.DR. PO SCH (10:00)
[2020-09-29 10:36] VITALS: BP 187/92
--- NOTE | 2020-09-29 10:52 | NUR ---
SS following for discharge planning. SS reviewed pt chart and discussed with pt RN. Pt is from home alone and is currently on room air. PT/OT/ST ordered. SS will continue to follow for discharge planning.
[2020-09-29] MEDS ORDERED: AMOXICILLIN/K CLAV 500/125MG TABLET. PO SCH (11:00)
--- NOTE | 2020-09-29 12:09 | RAD ---
Clinical indications: CVA. Left facial droop. Technique: T1 and T2 and FLAIR MRI sequences of the whole brain were performed. Images were obtained in axial, coronal, and sagittal planes. Diffusion weighted MRI sequence was performed as well. COMPARISON: Head CT dated September 28, 2020. MRI study of the brain dated July 20, 2018. Findings: No restricted diffusion is seen and therefore no acute infarct is seen. There is moderate periventricular white matter hyperintensities bilaterally and moderate hyperintensi ties within the central daniel which were seen previously and these findings have not changed significa ntly. No new confluent area of cerebral or cerebellar or brainstem edema is seen. No intracranial mass lesion or mass-effect is seen. No midline shift or hydrocephalus or extra-axial fluid collection is seen. No intracranial hemorrhage is identified. Normal vascular flow signal voids are seen. The internal auditory canals have a symmetric appearance and no cerebellopontine angle mass is presen t. No opacification of the paranasal sinuses or mastoid sinuses is seen. No cerebellar tonsillar ectopia is seen. No pituitary mass is identified. IMPRESSION: No acute infarct. Stable chronic small vessel ischemic disease of the periventricular white matter and the central daniel . No new abnormality. No intracranial mass lesion. Electronically signed by: Ravinder Ryan MD (09/29/2020 12:06 PM) [id number]
[2020-09-29] MEDS ORDERED: AMOX1TAB10 PO (12:13)
[2020-09-29] MEDS ORDERED: PRED-220 PO (12:13)
--- NOTE | 2020-09-29 12:34 | SNU/HH DC ---
DISCHARGE WITH HOME HEALTH DISCHARGE INFORMATION: Discharge Date: Sep 29, 2020 Final Diagnosis: Problems Medical Problems: (1) CVA (cerebral vascular accident) Status: Acute Condition on Discharge: Stable HOME HEALTH: Face to Face: I certify this patient is under my care and that I, or a nurse practitioner or physician's diversional therapist's assistant working with me, had a face to face encounter that meets the physician face to face encounter requirements with this patient on 09/29/2020. Medical Complications: HTN Custodial For: Assess/Skilled Observatio RN For Eval/Treatment: Yes Physical Therapy For: Evalulation/Treatment Occupational Therapy For: Evaluation/Treatment Pt Meets Homebound Status: Poor coordination w/ amb., Poor cognition POST DISCHARGE ORDERS: Activity Instructions for Disc: Activity as tolerated Weight Bearing Status after Di: As tolerated DIET AFTER DISCHARGE: ADA Wound/Incision Care: Ice to area for comfort CHECKS AFTER DISCHARGE: Checks after discharge: Check blood press - daily, Check blood sugar, ac/hs, Check your Temp as needed, Weigh Yourself Daily TREATMENT/EQUIPMENT ORDERS: Adaptive Equipment Issued: Walker CERTIFICATION STATEMENT: Certification Statement: Certification Statement: Based on the above finding, I certify that this patient is confined to the home and needs intermittent fci care, physical therapy and/or speech therapy, or continues to need occupational therapy.~ This patient is under my care, and I have initiated the establishment of the plan of care.~ This patient will be followed by myself or a community physician who will periodically review the plan of care. Home Meds Active Scripts Prednisone (PREDNISONE ) 10 Mg Tablet, 1 TAB PO DAILY for [place] palsy for 5 Days, #5 TAB 0 Refills Prov:JOCELYNE REYNOLDS MD 09/29/20 Amoxicillin/Potassium Clav (AMOX TR-K CLV 500-125 MG TAB) 1 Each Tablet, 1 TAB PO BID for Dental caries for 10 Days, #20 TAB Prov:JOCELYNE REYNOLDS MD 09/29/20 Reported Medications Atorvastatin Calcium (ATORVASTATIN CALCIUM) 10 Mg Tablet, 10 MG PO QODAY for FOR CHOLESTEROL, #30 TAB 0 Refills 09/28/20 Loratadine (LORATADINE) 10 Mg Tablet, 10 MG PO DAILY for seasonal allergies, TAB 07/19/19 Enalapril Maleate (ENALAPRIL MALEATE) 5 Mg Tablet, 5 MG PO DAILY for blood pressure, TAB 07/19/19 Sitagliptin Phos/Metformin Hcl (JANUMET 50-1,000 MG TABLET) 1 Each Tablet, 1 TAB PO BID for diabetes, #180 TAB 3 Refills 07/19/19 Fluticasone Propionate (Flonase Allergy Relief) 9.9 Ml [place].susp, 1 SPRAYS NS DAILY, BOTTLE 12/25/17 Pregabalin (LYRICA) 50 Mg Capsule, 1 CAP PO BID, #60 CAP 12/25/17 Clopidogrel Bisulfate (CLOPIDOGREL) 75 Mg Tablet, 1 TAB PO DAILY, #90 TAB 1 Refill 12/25/17 Atenolol (ATENOLOL) 100 Mg Tablet, 1 TAB PO DAILY, #30 TAB 5 Refills 12/25/17 Tamsulosin Hcl (TAMSULOSIN HCL) 0.4 Mg Cap.er.24h, 1 CAP PO QHS, #30 CAP 5 Refills 12/25/17 [Vitamin B 12 Inj.] No Conflict Check, 1000 MCG INJ QMONTH 12/25/17 Calcium Citrate/Vitamin D3 (CITRACAL + D MAXIMUM CAPLET) 1 Each Tablet, 1 EACH PO BID for supplement, TAB 12/25/17 Aspirin (ASPIR 81) 81 Mg Tablet.dr, 1 TAB PO DAILY, #30 TAB 5 Refills 12/25/17 Discontinued Scripts Hydrochlorothiazide (HYDROCHLOROTHIAZIDE CAPSULE ) 12.5 Mg Capsule, 12.5 MG PO DAILY for DIURETIC for 30 Days, #30 CAP 0 Refills Prov:ANA LUISA WELLER MD 07/20/19 JOCELYNE REYNOLDS MD Sep 29, 2020 12:34
--- NOTE | 2020-09-29 12:36 | PDOC2 ---
NEUROLOGY CONSULT Date of Service DOS: DATE: 09/29/20 TIME: 12:28 Reason for Consult Reason for Consult: Stroke Referring Physician Referring Physician: Dr. Richard PCP: Dr. Morfin Source Source: Caregiver (Several family members), Chart review, Patient History of Present Illness History of Present Illness The patient is an 85-year-old right-handed male who presented the emergency department yesterday having woken up with left facial droop. He feels weak in the legs, but that has been chronic, and he usually uses a cane. He went to the dentist who sent him on to the emergency department although the dentist did not think the patient had a tooth abscess. He was also having some left ear pain and some headache. Patient feels better today. I saw him 14 months ago after he fainted and had some blurred vision and right-sided weakness. A full TIA work-up including MRI, echocardiogram, and carotid studies was negative. Patient wants to go home. Past Medical History Cardiovascular: HTN, Hyperlipidemia, Other (Deep vein thrombosis) CENTRAL NERVOUS SYSTEM: Periperal neuropathy, TIA GI: Other (Diarrhea) Musculoskeletal: low back pain, Osteoarthritis Renal/: Prostate Ca., Other (impotence) Endocrine: Diabetes Past Surgical History Past Surgical History: Cholecystectomy, Cataract Removal, Hernia Repair, Other (Prostate) Family History Family History: CAD Social History Social History , no alcohol or tobacco, had been living with his sister who recently Current Medications Current Medications Current Medications Aspirin (Layne Aspirin) 325 mg 1X ONCE PO Last administered on 09/28/20at 17:50; Start 09/28/20 at 15:45; Stop 09/28/20 at 15:50; Status DC Iohexol (Omnipaque 350 Mg/ml) 75 ml 1X ONCE IV Last administered on 09/28/20at 17:17; Start 09/28/20 at 17:15; Stop 09/28/20 at 17:16; Status DC Info (CONTRAST GIVEN -- Rx MONITORING) 1 each PRN DAILY PRN MC SEE COMMENTS; Start 09/28/20 at 17:15; Stop 09/30/20 at 17:14 Ondansetron HCl (Zofran) 4 mg PRN Q6HRS PRN IVP NAUSEA/VOMITING; Start 09/28/20 at 18:30 Al Hydroxide/Mg Hydroxide (Mylanta Plus Xs) 30 ml PRN Q3HRS PRN PO HEARTBURN / GAS; Start 09/28/20 at 18:30 Calcium Carbonate/ Glycine (Tums) 500 mg PRN Q3HRS PRN PO UPSET STOMACH; Start 09/28/20 at 18:30 Zolpidem Tartrate (Ambien) 5 mg PRN QHS PRN PO INSOMNIA, MAY REPEAT IN 1HR; Start 09/28/20 at 18:30 Morphine Sulfate (Morphine Sulfate) 2 mg PRN Q1HR PRN IV PAIN; Start 09/28/20 at 18:30; Stop 09/29/20 at 07:21; Status DC Hydromorphone HCl (Dilaudid) 0.4 mg PRN Q1HR PRN IV PAIN; Start 09/28/20 at 18:30; Stop 09/29/20 at 07:21; Status DC Acetaminophen (Tylenol) 650 mg PRN Q6HRS PRN PO Headaches, Temp > 101.5F; Start 09/28/20 at 18:30; Status Cancel Magnesium Hydroxide (Milk Of Magnesia) 2,400 mg PRN Q12HR PRN PO CONSTIPATION; Start 09/28/20 at 18:30 Bisacodyl (Dulcolax Supp) 10 mg PRN DAILY PRN [place] CONSTIPATION; Start 09/28/20 at 18:30 Enoxaparin Sodium (Lovenox 40mg Syringe) 40 mg Q24H SQ Last administered on 09/28/20at 18:58; Start 09/28/20 at 18:30 Labetalol HCl (Normodyne Iv Push) 20 mg PRN Q15MIN PRN IVP HYPERTENSION; Start 09/28/20 at 18:30; Stop 09/28/20 at 18:30; Status DC Ondansetron HCl (Zofran) 4 mg PRN Q8HRS PRN IV NAUSEA/VOMITING; Start 09/28/20 at 18:30; Stop 09/29/20 at 07:21; Status DC Fentanyl Citrate (Fentanyl 2ml Vial) 50 mcg PRN Q1HR PRN IV PAIN Last administered on 09/29/20at 03:20; Start 09/28/20 at 18:30; Stop 09/29/20 at 18:29 Acetaminophen (Tylenol) 650 mg PRN Q4HRS PRN PO FEVER > 100.3'F; Start 09/28/20 at 18:30; Stop 09/29/20 at 07:21; Status DC Labetalol HCl (Normodyne Iv Push) 10 mg PRN Q15MIN PRN IVP HYPERTENSION; Start 09/28/20 at 18:30 Insulin Human Lispro (HumaLOG) 0-7 UNITS TIDWMEALS SQ ; Start 09/29/20 at 08:00 Dextrose (Dextrose 50%-Water Syringe) 12.5 gm PRN Q15MIN PRN IV SEE COMMENTS; Start 09/28/20 at 18:45 Magnesium Sulfate 100 ml @ 25 mls/hr 1X ONCE IV Last administered on 09/29/20at 08:54; Start 09/29/20 at 08:00; Stop 09/29/20 at 11:59; Status DC Atorvastatin Calcium (Lipitor) 10 mg QODAY PO Last administered on 09/29/20at 12:24; Start 09/29/20 at 09:00 Clopidogrel Bisulfate (Plavix) 75 mg DAILY PO Last administered on 09/29/20at 12:23; Start 09/29/20 at 09:00 Pregabalin (Lyrica) 50 mg BID PO Last administered on 09/29/20at 12:24; Start 09/29/20 at 09:00 Tamsulosin HCl (Flomax) 0.4 mg QHS PO ; Start 09/29/20 at 21:00 Atenolol (Tenormin) 100 mg DAILY PO Last administered on 09/29/20at 12:25; Start 09/29/20 at 09:00 Calcium/Vitamin D (Oscal D 500mg/ 200uts) 1 tab BID PO Last administered on 09/29/20at 12:23; Start 09/29/20 at 09:00 Lisinopril (Prinivil) 10 mg DAILY PO Last administered on 09/29/20at 12:24; Start 09/29/20 at 09:00 Fluticasone Propionate (Flonase) 1 spray DAILY NS Last administered on 09/29/20at 08:55; Start 09/29/20 at 09:00 Cetirizine HCl (ZyrTEC) 10 mg DAILY PO Last administered on 09/29/20at 12:23; Start 09/29/20 at 09:00 Linagliptin (Tradjenta) 5 mg DAILY PO ; Start 09/29/20 at 09:00; Stop 09/29/20 at 10:37; Status DC Acetaminophen (Tylenol) 650 mg PRN Q6HRS PRN PO MILD PAIN / TEMP > 100.3'F; Start 09/29/20 at 09:30 Aspirin (Ecotrin) 325 mg DAILYWBKFT PO Last administered on 09/29/20at 12:23; Start 09/29/20 at 10:00 Aspirin (Aspirin Rectal Supp) 300 mg PRN DAILY PRN VA IF UNABLE TO TAKE PO; Start 09/29/20 at 09:30 Amoxicillin/ Clavulanate Potassium (Augmentin 500/ 125mg) 1 tab BID PO Last administered on 09/29/20at 12:24; Start 09/29/20 at 11:00 Active Scripts Active Prednisone (Prednisone) 10 Mg Tablet 1 Tab PO DAILY 5 Days Amox Tr-K Clv 500-125 Mg Tab (Amoxicillin/Potassium Clav) 1 Each Tablet 1 Tab PO BID 10 Days Reported Atorvastatin Calcium 10 Mg Tablet 10 Mg PO QODAY Loratadine 10 Mg Tablet 10 Mg PO DAILY Enalapril Maleate 5 Mg Tablet 5 Mg PO DAILY Janumet 50-1,000 Mg Tablet (Sitagliptin Phos/Metformin Hcl) 1 Each Tablet 1 Tab PO BID Flonase Allergy Relief (Fluticasone Propionate) 9.9 Ml [place].susp 1 Sprays NS DAILY Lyrica (Pregabalin) 50 Mg Capsule 1 Cap PO BID Clopidogrel (Clopidogrel Bisulfate) 75 Mg Tablet 1 Tab PO DAILY Atenolol 100 Mg Tablet 1 Tab PO DAILY Tamsulosin Hcl 0.4 Mg Cap.er.24h 1 Cap PO QHS [Vitamin B 12 Inj.] 1,000 Mcg INJ QMONTH Citracal + D Maximum Caplet (Calcium Citrate/Vitamin D3) 1 Each Tablet 1 Each PO BID Aspir 81 (Aspirin) 81 Mg Tablet. 1 Tab PO DAILY Allergies Allergies: Coded Allergies: No Known Drug Allergies (Unverified , 12/26/17) ROS Review of System Negative for fever, chills, weight loss, shortness of breath, chest pain, ind igestion, hematochezia, melena, and dysuria. Full 14-point review of systems is negative. Physical Exam Physical Examination General: Well-developed, well-nourished black male in no acute distress HEENT: Normocephalic andatraumatic.Temporal arteriespulsatile and nontender. Tympanic membranes clear.Neck: Supple without bruit, no meningismus Musculoskeletal: Stability:see neurologic. Gait exam:see neurologic. Tone:see neurologic.Strength:see neurologic. Neurological: Mental Status:intact, orientation, memory, attention span/concentration, language, fund of knowledge normal. Cranial Nerves:Pupils equal and reactive to light, extraocular movements areintact, visual ly are full to confrontation. Facial sensation is normal. There is slight left facial weakness that does spare the forehead. Vestibulo-ocular reflex is intact. Palate elevates and tongue protrudes in midline. All other cranial related problems are negative except as mentioned before.Reflexes:1+ and symmetric with flexor plantar responses. Motor:5/5 strength with normal tone and bulk. Coordination:Finger- nose finger and [id number] testing are normal. Rapid alternating movements and fine finger movements are intact. Gait: arthritic, a little apraxic, does well with a walker. Sensory: stocking loss. Vitals VITALS Vital Signs Date Time Temp Pulse Resp B/P (MAP) Pulse Ox O2 Delivery O2 Flow Rate FiO2 09/29/20 12:25 101 187/92 09/29/20 10:36 97.5 18 94 Room Air 97.5 Labs Labs Laboratory Tests Test 09/28/20 16:40 09/28/20 17:44 09/29/20 07:11 White Blood Count 10.6 x10^3/uL (4.0-11.0) 8.6 x10^3/uL (4.0-11.0) Red Blood Count 3.67 x10^6/uL (4.30-5.70) 3.67 x10^6/uL (4.30-5.70) Hemoglobin 10.9 g/dL (13.0-17.5) 10.7 g/dL (13.0-17.5) Hematocrit 31.2 % (39.0-53.0) 31.1 % (39.0-53.0) Mean Corpuscular Volume 85 fL (79-100) 85 fL (79-100) Mean Corpuscular Hemoglobin 30 pg (25-35) 29 pg (25-35) Mean Corpuscular Hemoglobin Concent 35 g/dL (31-37) 35 g/dL (31-37) Red Cell Distribution Width 14.2 % (11.5-14.5) 14.4 % (11.5-14.5) Platelet Count 224 x10^3/uL (140-400) 220 x10^3/uL (140-400) Neutrophils (%) (Auto) 86 % (31-73) 81 % (31-73) Lymphocytes (%) (Auto) 6 % (24-48) 9 % (24-48) Monocytes (%) (Auto) 7 % (0-9) 9 % (0-9) Eosinophils (%) (Auto) 0 % (0-3) 1 % (0-3) Basophils (%) (Auto) 0 % (0-3) 0 % (0-3) Neutrophils # (Auto) 9.2 x10^3/uL (1.8-7.7) 7.0 x10^3/uL (1.8-7.7) Lymphocytes # (Auto) 0.7 x10^3/uL (1.0-4.8) 0.8 x10^3/uL (1.0-4.8) Monocytes # (Auto) 0.7 x10^3/uL (0.0-1.1) 0.7 x10^3/uL (0.0-1.1) Eosinophils # (Auto) 0.0 x10^3/uL (0.0-0.7) 0.1 x10^3/uL (0.0-0.7) Basophils # (Auto) 0.0 x10^3/uL (0.0-0.2) 0.0 x10^3/uL (0.0-0.2) Segmented Neutrophils % 82 % (35-66) Band Neutrophils % 8 % (0-9) Lymphocytes % 6 % (24-48) Monocytes % 4 % (0-10) Platelet Estimate Adequate (ADEQUATE) Poikilocytosis Mod [place] Cells Few Acanthocytes Few Schistocytes Few RBC Morphology Bizarre Forms Few Sodium Level 132 mmol/L (136-145) 134 mmol/L (136-145) Potassium Level 4.3 mmol/L (3.5-5.1) 4.1 mmol/L (3.5-5.1) Chloride Level 95 mmol/L (98-107) 97 mmol/L (98-107) Carbon Dioxide Level 28 mmol/L (21-32) 28 mmol/L (21-32) Anion Gap 9 (6-14) 9 (6-14) Blood Urea Nitrogen 19 mg/dL (8-26) 17 mg/dL (8-26) Creatinine 1.2 mg/dL (0.7-1.3) 1.4 mg/dL (0.7-1.3) Estimated GFR (Cockcroft-Gault) 57.4 48.1 BUN/Creatinine Ratio 16 (6-20) Glucose Level 143 mg/dL (70-99) 107 mg/dL (70-99) Calcium Level 9.0 mg/dL (8.5-10.1) 9.0 mg/dL (8.5-10.1) Magnesium Level 1.2 mg/dL (1.8-2.4) Total Bilirubin 0.4 mg/dL (0.2-1.0) Aspartate Amino Transf (AST/SGOT) 18 U/L (15-37) Alanine Aminotransferase (ALT/SGPT) 20 U/L (16-63) Alkaline Phosphatase 39 U/L (46-116) Total Protein 6.8 g/dL (6.4-8.2) Albumin 2.9 g/dL (3.4-5.0) Albumin/Globulin Ratio 0.7 (1.0-1.7) Thyroid Stimulating Hormone (TSH) 1.298 uIU/mL (0.358-3.74) Urine Collection Type Unknown Urine Color Yellow Urine Clarity Clear Urine pH 6.0 (<5.0-8.0) Urine Specific [place] 1.015 (1.000-1.030) Urine Protein Negative mg/dL (NEG-TRACE) Urine Glucose (UA) Negative mg/dL (NEG) Urine Ketones (Stick) Negative mg/dL (NEG) Urine Blood Negative (NEG) Urine Nitrite Negative (NEG) Urine Bilirubin Negative (NEG) Urine Urobilinogen Dipstick 0.2 mg/dL (0.2 mg/dL) Urine Leukocyte Esterase Negative (NEG) Urine RBC Occ /HPF (0-2) Urine WBC Occ /HPF (0-4) Urine Squamous Epithelial Cells Few /LPF Urine Bacteria 0 /HPF (0-FEW) Iron Level 18 ug/dL (65-175) Total Iron Binding Capacity 187 ug/dL (250-450) Iron Saturation 10 % (15-34) Triglycerides Level 67 mg/dL (0-150) Cholesterol Level 104 mg/dL (0-200) LDL Cholesterol, Calculated 50 mg/dL (0-100) VLDL Cholesterol, Calculated 13 mg/dL (0-40) Non-HDL Cholesterol Calculated 63 mg/dL (0-129) HDL Cholesterol 41 mg/dL (40-60) Cholesterol/HDL Ratio 2.5 Vitamin B12 Level 667 pg/mL (247-911) Laboratory Tests Test 09/28/20 16:40 09/28/20 17:44 09/29/20 07:11 White Blood Count 10.6 x10^3/uL (4.0-11.0) 8.6 x10^3/uL (4.0-11.0) Red Blood Count 3.67 x10^6/uL (4.30-5.70) 3.67 x10^6/uL (4.30-5.70) Hemoglobin 10.9 g/dL (13.0-17.5) 10.7 g/dL (13.0-17.5) Hematocrit 31.2 % (39.0-53.0) 31.1 % (39.0-53.0) Mean Corpuscular Volume 85 fL (79-100) 85 fL (79-100) Mean Corpuscular Hemoglobin 30 pg (25-35) 29 pg (25-35) Mean Corpuscular Hemoglobin Concent 35 g/dL (31-37) 35 g/dL (31-37) Red Cell Distribution Width 14.2 % (11.5-14.5) 14.4 % (11.5-14.5) Platelet Count 224 x10^3/uL (140-400) 220 x10^3/uL (140-400) Neutrophils (%) (Auto) 86 % (31-73) 81 % (31-73) Lymphocytes (%) (Auto) 6 % (24-48) 9 % (24-48) Monocytes (%) (Auto) 7 % (0-9) 9 % (0-9) Eosinophils (%) (Auto) 0 % (0-3) 1 % (0-3) Basophils (%) (Auto) 0 % (0-3) 0 % (0-3) Neutrophils # (Auto) 9.2 x10^3/uL (1.8-7.7) 7.0 x10^3/uL (1.8-7.7) Lymphocytes # (Auto) 0.7 x10^3/uL (1.0-4.8) 0.8 x10^3/uL (1.0-4.8) Monocytes # (Auto) 0.7 x10^3/uL (0.0-1.1) 0.7 x10^3/uL (0.0-1.1) Eosinophils # (Auto) 0.0 x10^3/uL (0.0-0.7) 0.1 x10^3/uL (0.0-0.7) Basophils # (Auto) 0.0 x10^3/uL (0.0-0.2) 0.0 x10^3/uL (0.0-0.2) Segmented Neutrophils % 82 % (35-66) Band Neutrophils % 8 % (0-9) Lymphocytes % 6 % (24-48) Monocytes % 4 % (0-10) Platelet Estimate Adequate (ADEQUATE) Poikilocytosis Mod [place]isa Cells Few Acanthocytes Few Schistocytes Few RBC Morphology Bizarre Forms Few Sodium Level 132 mmol/L (136-145) 134 mmol/L (136-145) Potassium Level 4.3 mmol/L (3.5-5.1) 4.1 mmol/L (3.5-5.1) Chloride Level 95 mmol/L (98-107) 97 mmol/L (98-107) Carbon Dioxide Level 28 mmol/L (21-32) 28 mmol/L (21-32) Anion Gap 9 (6-14) 9 (6-14) Blood Urea Nitrogen 19 mg/dL (8-26) 17 mg/dL (8-26) Creatinine 1.2 mg/dL (0.7-1.3) 1.4 mg/dL (0.7-1.3) Estimated GFR (Cockcroft-Gault) 57.4 48.1 BUN/Creatinine Ratio 16 (6-20) Glucose Level 143 mg/dL (70-99) 107 mg/dL (70-99) Calcium Level 9.0 mg/dL (8.5-10.1) 9.0 mg/dL (8.5-10.1) Magnesium Level 1.2 mg/dL (1.8-2.4) Total Bilirubin 0.4 mg/dL (0.2-1.0) Aspartate Amino Transf (AST/SGOT) 18 U/L (15-37) Alanine Aminotransferase (ALT/SGPT) 20 U/L (16-63) Alkaline Phosphatase 39 U/L (46-116) Total Protein 6.8 g/dL (6.4-8.2) Albumin 2.9 g/dL (3.4-5.0) Albumin/Globulin Ratio 0.7 (1.0-1.7) Thyroid Stimulating Hormone (TSH) 1.298 uIU/mL (0.358-3.74) Urine Collection Type Unknown Urine Color Yellow Urine Clarity Clear Urine pH 6.0 (<5.0-8.0) Urine Specific [place] 1.015 (1.000-1.030) Urine Protein Negative mg/dL (NEG-TRACE) Urine Glucose (UA) Negative mg/dL (NEG) Urine Ketones (Stick) Negative mg/dL (NEG) Urine Blood Negative (NEG) Urine Nitrite Negative (NEG) Urine Bilirubin Negative (NEG) Urine Urobilinogen Dipstick 0.2 mg/dL (0.2 mg/dL) Urine Leukocyte Esterase Negative (NEG) Urine RBC Occ /HPF (0-2) Urine WBC Occ /HPF (0-4) Urine Squamous Epithelial Cells Few /LPF Urine Bacteria 0 /HPF (0-FEW) Iron Level 18 ug/dL (65-175) Total Iron Binding Capacity 187 ug/dL (250-450) Iron Saturation 10 % (15-34) Triglycerides Level 67 mg/dL (0-150) Cholesterol Level 104 mg/dL (0-200) LDL Cholesterol, Calculated 50 mg/dL (0-100) VLDL Cholesterol, Calculated 13 mg/dL (0-40) Non-HDL Cholesterol Calculated 63 mg/dL (0-129) HDL Cholesterol 41 mg/dL (40-60) Cholesterol/HDL Ratio 2.5 Vitamin B12 Level 667 pg/mL (247-911) Images Images Brain MRI: No restricted diffusion is seen and therefore no acute infarct is seen. There is moderate periventricular white matter hyperintensities bilaterally and moderate hyperintensities within the central daniel which were seen previously and these findings have not changed significantly. No new confluent area of cerebral or cerebellar or brainstem edema is seen. No intracranial mass lesion or mass-effect is seen. No midline shift or hydrocephalus or extra-axial fluid collection is seen. No intracranial hemorrhage is identified. Normal vascular flow signal voids are seen. The internal auditory canals have a symmetric appearance and no cerebellopontine angle mass is present. No opacification of the paranasal sinuses or mastoid sinuses is seen. No cerebellar tonsillar ectopia is seen. No pituitary mass is identified. IMPRESSION: No acute infarct. 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 No new abnormality. No intracranial mass lesion. CT head. CTA head and neck INDICATION: Left facial droop TECHNIQUE: Sequential axial images through the head were obtained without the administration of IV contrast. Sequential axial images through the head and neck were obtained following the administration of 75 mL of Omni 350 Comparisons: None FINDINGS: Head: No focal parenchymal lesion or hemorrhage is identified. There is no midline shift or sulcal effacement. Patchy hypodensity in the periventricular white matter bilaterally. No acute vascular territory infarction is identified. Ramires-white distinction is preserved. The ventricular system is within normal limits without compression hydrocephalus. The basal cisterns are well maintained. The visualized portions of the paranasal sinuses and mastoid air cells are well- pneumatized. No acute fractures. CTA NECK: Visualized portions of the thoracic aorta are unremarkable. There is a two- vessel or arch configuration with common origin of the brachycephalic and left common carotid artery. Right common carotid artery is patent without evidence of stenosis, occlusion or aneurysm. Mild plaque is noted at the origin of the right internal carotid artery without significant stenosis. Left common carotid artery is patent without evidence of stenosis, occlusion or aneurysm. Mild plaque at origin of the left internal carotid artery without significant stenosis. Right vertebral artery is patent to the basilar confluence without evidence of stenosis, occlusion or aneurysm. Left vertebral artery is patent to basilar confluence without evidence of stenosis, Visualized paraspinal soft tissues are unremarkable. CTA head: Calcified plaque at the cavernous segment of the right internal carotid artery without significant stenosis. Right MCA is patent. Right [place] is patent. Calcified plaque at the cavernous segment of the left internal carotid artery without significant stenosis. Left MCA is patent. Left [place] is patent. Basilar artery is patent without evidence of stenosis, occlusion or aneurysm. inclusion special education teacher are patent bilaterally. IMPRESSION: 1. Moderate small vessel ischemic change, technically age indeterminate without recent prior imaging. 2. Mild calcified plaque at the cavernous segments of the internal carotid arteries bilaterally without stenosis stenosis. 3. Mild plaque at the origin of the internal carotid arteries bilaterally without significant stenosis. 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 Diabetic neuropathy History of transient ischemic attack, already on aspirin, clopidogrel, and statin Recommendations: MRI of the brain, done, negative as reviewed above I discussed risk, benefits, alternatives, and side effects with the patient and his family regarding the use of steroids. 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 Therefore I believe the risks outweigh the benefits of steroids Antibiotic treatment for possible tooth abscess per dentist and internal medicine Okay for discharge today, best to have speech clear him for swallowing first Follow-up with me as needed Discussed with family Discussed with Dr. Richard Thank you for letting me help with the patient's care. MOLLY BURCH MD Sep 29, 2020 12:36
--- NOTE | 2020-09-29 13:11 | NUR ---
Bedside Swallow Evaluation completed. Please refer to full report in intervention section for additional information. Impressions: functional oropharyngeal swallow w/o s/s aspiration. Pt would benefit from modified diet r/t tooth pain and Enriquez's palsy. Pt/family agreeable to dysphagia II diet w/ regular liquids. Recommendations: Dysphagia II diet w/ thin liquids. General swallow precautions. No additional MOBILE PHLEBOTOMIST f/u indicated at this time.
[2020-09-29 14:37] VITALS: BP 152/81
--- NOTE | 2020-09-29 16:27 | NUR ---
Discharge Note: [facility] Discharge instructions and discharge home medications reviewed with Patient and a copy given. All questions have been answered and understanding verbalized. The following instructions and handouts were given: bells palsy Discontinued lines and drains: Peripheral IV intact. Patient discharged to Home w/services with Family Member via Wheelchair
[2020-09-29] MEDS ORDERED: TAMSULOSIN 0.4 MG CAP.ER.24H. PO SCH (21:00)
== END 2020-09-29 16:35 | disposition home health service (06) ==
LOC: ER 15:09 → 2 NORTH 18:21
PROVIDERS: ADMIT Family Medicine; ATTEND Family Medicine
DX: I63.9 Cerebral infarction, unspecified (principal); I10 Essential (primary) hypertension; E11.51 Type 2 diabetes mellitus with diabetic peripheral angiopathy without gangrene; E11.40 Type 2 diabetes mellitus with diabetic neuropathy, unspecified; C61 Malignant neoplasm of prostate; E78.5 Hyperlipidemia, unspecified; D63.8 Anemia in other chronic diseases classified elsewhere; E46 Unspecified protein-calorie malnutrition; E83.42 Hypomagnesemia; E86.1 Hypovolemia; I65.29 Occlusion and stenosis of unspecified carotid artery; N40.0 Benign prostatic hyperplasia without lower urinary tract symptoms; E87.1 Hypo-osmolality and hyponatremia; I73.9 Peripheral vascular disease, unspecified; K02.9 Dental caries, unspecified; G51.0 Bell's palsy; R29.700 NIHSS score 0; Z79.4 Long term (current) use of insulin; Z79.899 Other long term (current) drug therapy; Z79.82 Long term (current) use of aspirin; Z79.02 Long term (current) use of antithrombotics/antiplatelets; Z85.46 Personal history of malignant neoplasm of prostate; Z86.73 Personal history of transient ischemic attack (TIA), and cerebral infarction without residual deficits; Z90.49 Acquired absence of other specified parts of digestive tract; Z98.49 Cataract extraction status, unspecified eye; Z98.890 Other specified postprocedural states
CPT/HCPCS: 36415; 70450; 70496; 70498; 70551; 80048; 80053; 80061; 81001; 82607; 82962; 83540; 83550; 83735; 84443; 85007; 85025; 92610; 93005; 96365; 96366; 96372; 96375; 96376; 97110; 97116; 97162; 97166; 97535; 99285; G0378; J1650; J1815; J3010; J3475; Q9967; G0379

== ENCOUNTER → 2022-02-16 | Outpatient (CLI) | payer MEDICARE, BC ==
[~2022-02-16] MED LIST changes: +AMOX1TAB10 PO; -BENA20TA4 PO; +BENA20TA84 PO; +PRED-220 PO
--- NOTE | 2022-02-18 16:23 | CARD ---
MR#: [id number] Date of Study: 02/16/2022 Ordering Physician: JORGE L LORD, Referring Physician: JORGE L LORD, Tech: Aydin Cheng [facility] APPROVED REPORT EXAM: Two-dimensional and M-mode echocardiogram with Doppler and color Doppler. Other Information Quality : AverageHR: 81bpm Rhythm : NSRTechnically limited study due to body habitus. INDICATION Mitral Valve Disease 2D DIMENSIONS Left Atrium(2D)3.8 (1.6-4.0cm)IVSd0.9 (0.7-1.1cm) Aortic Root(2D)2.8 (2.0-3.7cm)LVDd4.0 (3.9-5.9cm) LVOT Diameter2.0 (1.8-2.4cm)PWd1.0 (0.7-1.1cm) LA Ecqsep34 (18-58mL)LVDs2.4 (2.5-4.0cm) FS (%) 39.7 %SV49.4 ml LVEF(%)70.9 (>50%) Aortic Valve AoV Peak Zeeshan.94.7cm/sAoV VTI16.4cm AO Peak GR.3.6mmHgLVOT Peak Zeeshan.61.4cm/s LVOT VTI 14.47cmAO Mean GR.2mmHg CHELSY (VMAX)1.49oz2ESW (VTI)2.87cm2 Mitral Valve MV E Hlmfilzu83.2cm/sMV DECEL [id number] MV A Pwdbgayu344.6cm/sMV IFH45if E/A Ratio0.6MVA (PHT)4.99cm2 TDI E/Lateral E'8.7E/Medial E'16.5 Pulmonary Valve PV Peak Bempfcyu08.7cm/sPV Peak Grad.3mmHg Tricuspid Valve TR P. Oehdptkj005uf/sTR Peak Gr.22mmHg Pulmonary Vein S1 Dynasisf47.3cm/sD2 Ggkmgmop24.3cm/s LEFT VENTRICLE The left ventricle is normal size. There is normal left ventricular wall thickness. The left ventricu lar systolic function is normal and the ejection fraction is within normal range. EF 55% There is nor mal LV segmental wall motion. Transmitral Doppler flow pattern is Grade I-abnormal relaxation pattern . No left ventricle thrombus noted on this study. There is no ventricular septal defect visualized. T here is no left ventricular aneurysm. There is no mass noted in the left ventricle. RIGHT VENTRICLE The right ventricle is normal size. There is normal right ventricular wall thickness. The right ventr icular systolic function is normal. ATRIA The left atrium size is normal. The right atrium size is normal. The interatrial septum is intact wit h no evidence for an atrial septal defect or patent foramen ovale as noted on 2-D or Doppler imaging. AORTIC VALVE The aortic valve is moderately calcified with restricted leaflet motion. Doppler and Color Flow revea led trace aortic regurgitation. There is no significant aortic valvular stenosis. There is no aortic valvular vegetation. MITRAL VALVE The mitral valve is thickened with restricted posterior leaflet. There is no evidence of mitral valve prolapse. There is no mitral valve stenosis. Doppler and Color-flow revealed mild to moderate mitral regurgitation. TRICUSPID VALVE The tricuspid valve is normal in structure and function. Doppler and Color Flow revealed trace tricus pid regurgitation. The PA pressure was estimated at 27 mmHg. There is no tricuspid valve prolapse or vegetation. There is no tricuspid valve stenosis. PULMONIC VALVE Doppler and Color Flow revealed no pulmonic valvular regurgitation. There is no pulmonic valvular guilherme nosis. GREAT VESSELS The aortic root is normal in size. The ascending aorta is normal in size. The IVC is normal in size a nd collapses >50% with inspiration. PERICARDIAL EFFUSION There is no pleural effusion. There is no evidence of significant pericardial effusion. Critical Notification Critical Value: No <Conclusion> The left ventricular systolic function is normal and the ejection fraction is within normal range. EF 55% There is normal LV segmental wall motion. Doppler and Color-flow revealed mild to moderate mitral regurgitation. Signed by : Terrance Louis, Electronically Approved : 02/18/2022 16:23:22
== END ==
LOC: ECHO 12:53
PROVIDERS: ATTEND Internal Medicine Cardiovascular Disease
DX: I08.0 Rheumatic disorders of both mitral and aortic valves (principal)
CPT/HCPCS: 93306; C8929